=== PATIENT | female | born 1925 | race Caucasian/White ===

== ENCOUNTER 2016-04-18 13:08 | Inpatient (IN) | payer OTHER, MEDICARE ==
[~2016-04-18] VITALS: Ht 160 cm; Wt 71.0 kg
[~2016-04-18 13:08] MED LIST: AMT10 PO; ASPEC81 PO; ATOR10TA88 PO; AZIT250T PO; MELO7.5T5 PO; MULT-506 PO; SYN75 PO; TORS10TA14 PO; XNX25 PO
[2016-04-18] MEDS ORDERED: FURO-85 PO (13:22)
[2016-04-18] MEDS ORDERED: ASCA500 PO (13:25)
[2016-04-18] MEDS ORDERED: MEMA1CAP3 PO (13:25)
[2016-04-18] MEDS ORDERED: RMR15 PO (13:27)
[2016-04-18] MEDS ORDERED: POTA10CA28 PO (13:29)
[2016-04-18 14:24] LABS: BASO % 0.1 %; BASO ABS # 0.01 K/uL (0-0.2); COMPLETE YES; EOS % 0.9 %; HEMATOCRIT 36.4 % (37-47); IG% 0.1 %; LYMPH ABS # 1.01 K/uL (1.2-3.4); MEAN CELL VOLUME 91.7 fL (80-100); MEAN CORPUSCULAR HEMOGLOBIN 31.2 pg (25-34); MEAN CORPUSCULAR HGB CONC 34.1 g/dl (32-36); MEAN PLATELET VOLUME 9.7 fL (7.4-10.4); NEUT % 73.9 %; PLATELET COUNT 207 K/uL (130-400); RED BLOOD COUNT 3.97 M/uL (4.2-5.4); WHITE BLOOD COUNT 6.72 K/uL (4.8-10.8)
--- NOTE | 2016-04-18 14:29 | DIAGNOSTIC IMAGING REPORT ---
CHEST ONE VIEW PORTABLE HISTORY: EVALUATE RESPIRATORY DISTRESS.DYSPNEA COMPARISON: Chest 11/16/2013. FINDINGS: No pneumothorax. 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 The heart is mildly enlarged. Poststernotomy changes and cardiac valve prostheses are again noted. Prior cholecystectomy. Slight prominence of interstitial markings. Left basilar linear densities persist and favor subsegmental atelectasis or scarring. No new focal lung consolidations. Old, healed left-sided rib fractures. IMPRESSION: Slightly prominence of the interstitial markings which may represent developing pulmonary edema. Stable cardiomegaly. Electronically signed by: Dhruv Crocker M.D. 04/18/2016 2:28 PM Dictated Date/Time: 04/18/2016 2:25 PM
[2016-04-18 14:44] LABS: URINE APPEARANCE CLEAR (CLEAR); URINE BILIRUBIN NEG (NEG); URINE COLOR YELLOW; URINE EPITHELIAL CELL AUTO >30 /lpf (0-5); URINE NITRITE NEG (NEG); URINE PH 7.5 (4.5-7.5); URINE SPECIFIC GRAVITY 1.002 (1.000-1.030); UROBILINOGEN NEG (NEG)
[2016-04-18] MEDS ORDERED: NITROGLYCERIN OINT 2% 1GM PACKET EXT ONE ×2 (15:00→15:45)
[2016-04-18 15:03] LABS: MANUAL MICROSCOPIC REQUIRED? NO; REVIEW REQ? NO
[2016-04-18 15:14] LABS: ALB/GLOB RATIO 0.9 (0.9-2); ALKALINE PHOSPHATASE 108 U/L (45-117); ALT/SGPT 25 U/L (12-78); BLOOD UREA NITROGEN 13 mg/dl (7-18); BUN/CREATININE RATIO 13.9 (10-20); CALCIUM 8.9 mg/dl (8.5-10.1); CHLORIDE 99 mmol/L (98-107); CREATININE 0.93 mg/dl (0.60-1.20)
[2016-04-18 15:15] LABS: GLUCOSE 109 mg/dl (70-99)
[2016-04-18 15:16] LABS: CARBON DIOXIDE 28 mmol/L (21-32); SODIUM 135 mmol/L (136-145)
[2016-04-18 15:24] LABS: POTASSIUM 4.3 mmol/L (3.5-5.1)
[2016-04-18 15:34] LABS: AST/SGOT 27 U/L (15-37)
[2016-04-18 15:35] LABS: CKMB/CK RATIO 2.9 (0-3.0)
[2016-04-18] MEDS ORDERED: FUROSEMIDE 40 MG/4 ML VIAL IV STA (15:41)
[2016-04-18] MEDS ORDERED: CEFTRIAXONE SOD INJ 1 GM ADDVIAL IV STA (15:41)
--- NOTE | 2016-04-18 16:46 | History and Physical ---
History & Physical Date & Time of Service: Apr 18, 2016 at 16:31 Chief Complaint: SOB Primary Care Physician: Geraldo Rick M.D. History of Present Illness Source: patient Lupe Santana (prefers to be called Peg) presented to the ED today with shortness of breath. She lives at the [facility] and reports she was walking down the [place] to check her blood pressure, and felt short of breath on the walk over. Her BP was elevated and was 168/80 with HR 100 and 95% saturations in the morning, and she called her son, who said she should come to the hospital. She denied any chest pain or other symptoms. She reports she hasn't eaten much today but has been passing urine frequently. She denies any dysuria, or frequency prior to coming into hospital. She reports she takes Ibuprofen for diffuse arthritis, but at her last PCP visit in March she cut down her Ibuprofen amount - 2 tabs at 8am, 1 at noon, 1 at supper, and 2 at 10pm. When she was on a diuretic daily she was nauseated and felt unwell so stopped it after 2 days. She reports she eats her own breakfast and lunch, and then has dinner at the [facility]. Reports she avoids too many fruits / vegetables as they cause diarrhea. An example of her diet includes: orange juice, banana, shredded wheat cereal for breakfast, vanilla pudding, milk with protein inside to help swallow her medications, small pieces of chicken on a roll for dinner, strawberry ice cream for dessert. Since arrival in the ED, she's received Lasix 20mg IV, and a dose of Rocephin for UTI. She reports anytime her blood pressure is taken she has to pass urine. 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 PSHx: - Bovine aortic valve replacement - Appendectomy - Cholecystectomy Family History Omitted secondary to age Mother had TB and at a young age, Father healthy during life but Social History Smoking Status: Never Smoker Drug Use: none Marital Status: single Housing status: skilled nursing Occupational Status: retired Immunizations History of Influenza Vaccine: Yes Influenza Vaccine Date: Dec 13, 2010 History of Tetanus Vaccine?: Unknown History of Pneumococcal: Yes Pneumococcal Date: Dec 13, 2010 History of Hepatitis B Vaccine: Unknown Multi-Drug Resistant Organisms History of MDRO: No Allergies Coded Allergies: Penicillins (Verified Allergy, Intermediate, RXN = RASH, NO SOB, NO EDEMA PER PATIENT REPORT, 04/18/16) Sulfa Antibiotics (Verified Allergy, Intermediate, RXN = RASH, NO SOB, NO EDEMA PER PATIENT REPORT, 04/18/16) Erythromycin (Verified Allergy, Mild, unknown, 04/18/16) Lidocaine (Verified Allergy, Mild, 04/18/16) Tetracyclines (Verified Allergy, Mild, 04/18/16) Zinc (Verified Allergy, Mild, MADE JAW SORE WITH PASTE FOR DENTURES, ) Morphine (Verified Adverse Reaction, Unknown, SENSITIVE TO MEDICATION, 04/18) Home Medications Scheduled Ascorbic Acid (Vitamin C), 1 TAB PO DAILY Aspirin Enteric Coated (Ecotrin Or Generic *), 81 MG PO DAILY Atorvastatin (Lipitor), 10 MG PO DAILY Calcium Carbonate-Vitamin D (Calcium), 1 TAB PO DAILY Clindamycin Hcl (Cleocin), 300 MG PO UD Gabapentin (Neurontin), 300 MG PO HS Ibuprofen (Advil), 200 MG PO PRN Levothyroxine (Synthroid *), 0.075 MG PO DAILY Memantine Hcl (Namenda Xr), 14 MG PO DAILY Metoprolol Succinate (Toprol Xl), 25 MG PO DAILY Mirtazapine (Mirtazapine), 15 MG PO HS Multivitamin (Multivitamin), 1 TABLET PO DAILY Omeprazole (Prilosec), 40 MG PO DAILY Potassium Chloride (Micro-K Ext Rel), 10 MEQ PO DAILY Review of Systems See HPI for pertinent positives & negatives. A total of 10 systems reviewed and were otherwise negative. Physical Exam Vital Signs Date Time Temp Pulse Resp B/P Pulse Ox O2 Delivery O2 Flow Rate FiO2 04/18/16 15:07 97 26 198/102 93 Room Air 04/18/16 14:27 94 Room Air 04/18/16 13:55 182/112 04/18/16 13:19 83 04/18/16 13:12 96 Room Air 04/18/16 13:12 36.4 92 24 197/122 96 Room Air General Appearance: WD/WN, no apparent distress Head: normocephalic, atraumatic Eyes: normal inspection, PERRL Neck: supple, no JVD Respiratory/Chest: + decreased breath sounds (crackles bilaterally at bases) Cardiovascular: regular rate, rhythm, + gallop/S4 Abdomen/GI: normal bowel sounds, non tender, soft, + distended Back: no CVA tenderness Extremities/Musculoskelatal: + pedal edema (+2 pedal edema. Calves nontender.) Neurologic/Psych: alert, normal mood/affect, oriented x 3 Skin: no rash Diagnostics Laboratory Results Results Past 24 Hours Test 04/18/16 13:55 04/18/16 14:10 Range/Units White Blood Count 6.72 4.8-10.8 K/uL Red Blood Count 3.97 4.2-5.4 M/uL Hemoglobin 12.4 12.0-16.0 g/dL Hematocrit 36.4 37-47 % Mean Corpuscular Volume 91.7 80-100 fL Mean Corpuscular Hemoglobin 31.2 25-34 pg Mean Corpuscular Hemoglobin Concent 34.1 32-36 g/dl Platelet Count 207 130-400 K/uL Mean Platelet Volume 9.7 7.4-10.4 fL Neutrophils (%) (Auto) 73.9 % Lymphocytes (%) (Auto) 15.0 % Monocytes (%) (Auto) 10.0 % Eosinophils (%) (Auto) 0.9 % Basophils (%) (Auto) 0.1 % Neutrophils # (Auto) 4.96 1.4-6.5 K/uL Lymphocytes # (Auto) 1.01 1.2-3.4 K/uL Monocytes # (Auto) 0.67 0.11-0.59 K/uL Eosinophils # (Auto) 0.06 0-0.5 K/uL Basophils # (Auto) 0.01 0-0.2 K/uL RDW Standard Deviation 44.3 36.4-46.3 fL RDW Coefficient of Variation 13.2 11.5-14.5 % Immature Granulocyte % (Auto) 0.1 % Immature Granulocyte # (Auto) 0.01 0.00-0.02 K/uL Sodium Level 135 136-145 mmol/L Potassium Level 4.3 3.5-5.1 mmol/L Chloride Level 99 98-107 mmol/L Carbon Dioxide Level 28 21-32 mmol/L Anion Gap 8.0 3-11 mmol/L Blood Urea Nitrogen 13 7-18 mg/dl Creatinine 0.93 0.60-1.20 mg/dl Est Creatinine Clear Calc Drug Dose 40.0 ml/min Estimated GFR () 63.6 Estimated GFR (Non- 54.9 BUN/Creatinine Ratio 13.9 10-20 Random Glucose 109 70-99 mg/dl Calcium Level 8.9 8.5-10.1 mg/dl Total Bilirubin 0.5 0.2-1 mg/dl Aspartate Amino Transf (AST/SGOT) 27 15-37 U/L Alanine Aminotransferase (ALT/SGPT) 25 12-78 U/L Alkaline Phosphatase 108 45-117 U/L Total Creatine Kinase 45 26-192 U/L Creatine Kinase MB 1.3 0.5-3.6 ng/ml Creatine Kinase MB Ratio 2.9 0-3.0 Troponin I < 0.015 0-0.045 ng/ml Pro-B-Type Natriuretic Peptide 1727 0-1800 pg/ml Total Protein 7.2 6.4-8.2 gm/dl Albumin 3.4 3.4-5.0 gm/dl Globulin 3.8 2.5-4.0 gm/dl Albumin/Globulin Ratio 0.9 0.9-2 Urine Color YELLOW Urine Appearance CLEAR CLEAR Urine pH 7.5 4.5-7.5 Urine Specific [place] 1.002 1.000-1.030 Urine Protein NEG NEG Urine Glucose (UA) NEG NEG Urine Ketones NEG NEG Urine Occult Blood NEG NEG Urine Nitrite NEG NEG Urine Bilirubin NEG NEG Urine Urobilinogen NEG NEG Urine Leukocyte Esterase MODERATE NEG Urine WBC (Auto) 10-30 0-5 /hpf Urine RBC (Auto) 0-4 0-4 /hpf Urine Hyaline Casts (Auto) 0 0-5 /lpf Urine Epithelial Cells (Auto) >30 0-5 /lpf Urine Bacteria (Auto) 1+ NEG Microbiology Results 04/18/16 Urine Culture, Received Pending Diagnostic Radiology [~ rep ct add3]] CHEST ONE VIEW PORTABLE HISTORY: EVALUATE RESPIRATORY DISTRESS.DYSPNEA COMPARISON: Chest 11/16/2013. FINDINGS: No pneumothorax. 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 The heart is mildly enlarged. Poststernotomy changes and cardiac valve prostheses are again noted. Prior cholecystectomy. Slight prominence of interstitial markings. Left basilar linear densities persist and favor subsegmental atelectasis or scarring. No new focal lung consolidations. Old, healed left-sided rib fractures. IMPRESSION: Slightly prominence of the interstitial markings which may represent developing pulmonary edema. Stable cardiomegaly. Electronically signed by: Dhruv Crocker M.D. 04/18/2016 2:28 PM Dictated Date/Time: 04/18/2016 2:25 PM Normal EKG (HR 95, no ST elevation) Impression Assessment and Plan 89 yo F, with history of hypertension, aortic valve replacement (pig valve, in 2005), who presents with shortness of breath - likely CHF exacerbation. Differential of triggers for exacerbation include ischemia, arrhythmia, diet related, chronic ibuprofen use, chronic hypertension, valvular issue. Plan Acute on chronic CHF exacerbation - Echocardiogram - Coon - Received 20mg IV Lasix so far - Strict I&O monitoring - Daily weights - CXR in AM - Low salt diet Hypertension - Continue Toprol XL 25mg daily - Will start Lisinopril 20mg today - PRN Lopressor 5mg IV q6h SBP > 180 or DBP > 110 Depression - Continue Mirtazapine 15mg qHS CODE STATUS: DNR VTE: Heparin q8h Dispo: Resident Physician Supervision Note: I interviewed and examined the patient. Discussed with Dr. Johnson and agree with findings and plan as documented in the note. Any exceptions or clarifications are listed here: The patient has had prompt diuresis since Lasix administration, however, she has been incontinent thus nursing has not been able to quantify. Agree with plan as noted above. 20 mg IV in this Lasix naive patient was appropriate, and given response, would hold off on additional dose until we re-asses in AM. Documented By: Sekou Haskins Resident Tracking Resident Involvement: Resident Care Provided Care Provided: Adult Hospital Medicine
--- NOTE | 2016-04-18 17:11 | Medical Student: [facility] ---
Med Student History & Physical Date & Time of Service: Apr 18, 2016 at 17:04 Chief Complaint: SOB Primary Care Physician: Geraldo Rick M.D. History of Present Illness Source: patient, clinic records, hospital records Pt is an 89 yo female with a history of HTN that presented today following an episode of dyspnea on exertion with an associated elevated blood pressure. She notes that she was feeling fine yesterday and this morning until she began walking around and noticed that she was short of breath. She stopped into the nurses station at [facility] to have her BP checked and it was noted to be 168/80 , which concerned her. She is currently taking and was previously tried leeann dieuretic by her PCP but she noted dizziness and nausea that caused her to stop taking it. She denies associated sxs such as fever, cough, nasal congestion Past Medical/Surgical History Medical Problems: (1) Clostridium difficile diarrhea Status: Acute HTN PSH Cholecystectomy Appendectomy Tonsillectomy Aortic Valve replacement Family History Non contributory or unknown Social History Smoking Status: Never Smoker Drug Use: none Marital Status: single Housing status: fpc Occupational Status: retired Immunizations History of Influenza Vaccine: Yes Influenza Vaccine Date: Dec 13, 2010 History of Tetanus Vaccine?: Unknown History of Pneumococcal: Yes Pneumococcal Date: Dec 13, 2010 History of Hepatitis B Vaccine: Unknown Allergies Coded Allergies: Penicillins (Verified Allergy, Intermediate, RXN = RASH, NO SOB, NO EDEMA PER PATIENT REPORT, 04/18/16) Sulfa Antibiotics (Verified Allergy, Intermediate, RXN = RASH, NO SOB, NO EDEMA PER PATIENT REPORT, 04/18/16) Erythromycin (Verified Allergy, Mild, unknown, 04/18/16) Lidocaine (Verified Allergy, Mild, 04/18/16) Tetracyclines (Verified Allergy, Mild, 04/18/16) Zinc (Verified Allergy, Mild, MADE JAW SORE WITH PASTE FOR DENTURES, ) Morphine (Verified Adverse Reaction, Unknown, SENSITIVE TO MEDICATION, 04/18) Medications Ascorbic Acid (Vitamin C), 1 TAB PO DAILY Aspirin Enteric Coated (Ecotrin Or Generic *), 81 MG PO DAILY Atorvastatin (Lipitor), 10 MG PO DAILY Calcium Carbonate-Vitamin D (Calcium), 1 TAB PO DAILY Clindamycin Hcl (Cleocin), 300 MG PO UD Gabapentin (Neurontin), 300 MG PO HS Ibuprofen (Advil), 200 MG PO PRN Levothyroxine (Synthroid *), 0.075 MG PO DAILY Memantine Hcl (Namenda Xr), 14 MG PO DAILY Metoprolol Succinate (Toprol Xl), 25 MG PO DAILY Mirtazapine (Mirtazapine), 15 MG PO HS Multivitamin (Multivitamin), 1 TABLET PO DAILY Omeprazole (Prilosec), 40 MG PO DAILY Potassium Chloride (Micro-K Ext Rel), 10 MEQ PO DAILY Review of Systems Constitutional: No chills, No fever, No weakness, No weight loss ENT: No hearing loss Respiratory: + dyspnea on exertion, + shortness of breath, No cough, No wheezing Cardiovascular: No chest pain, No palpitations Abdomen: No constipation, No diarrhea, No nausea, No pain, No vomiting Musculoskeletal: + joint pain Genitourinary - Female: No dysuria, No urinary frequency Hematologic / Lymphatic: No abnormal bleeding/bruising Integumentary: No itch, No rash Physical Exam Vital Signs (24 Hours) Date Time Temp Pulse Resp B/P Pulse Ox O2 Delivery O2 Flow Rate FiO2 04/18/16 15:07 97 26 198/102 93 Room Air 04/18/16 14:27 94 Room Air 04/18/16 13:55 182/112 04/18/16 13:19 83 04/18/16 13:12 96 Room Air 04/18/16 13:12 36.4 92 24 197/122 96 Room Air General Appearance: WD/WN, no apparent distress Head: normocephalic, atraumatic Eyes: PERRL, EOMI ENT: hearing grossly normal Neck: supple, no adenopathy, thyroid normal Respiratory/Chest: no respiratory distress, no accessory muscle use, + decreased breath sounds Cardiovascular: regular rate, rhythm, no murmur Abdomen/GI: non tender, soft Extremities/Musculoskelatal: + pedal edema, + swelling Neurologic/Psych: alert, normal mood/affect, oriented x 3 Skin: normal color, warm/dry, no rash Diagnostics Laboratory Results Results Past 24 Hours Test 04/18/16 13:55 04/18/16 14:10 Range/Units White Blood Count 6.72 4.8-10.8 K/uL Red Blood Count 3.97 4.2-5.4 M/uL Hemoglobin 12.4 12.0-16.0 g/dL Hematocrit 36.4 37-47 % Mean Corpuscular Volume 91.7 80-100 fL Mean Corpuscular Hemoglobin 31.2 25-34 pg Mean Corpuscular Hemoglobin Concent 34.1 32-36 g/dl Platelet Count 207 130-400 K/uL Mean Platelet Volume 9.7 7.4-10.4 fL Neutrophils (%) (Auto) 73.9 % Lymphocytes (%) (Auto) 15.0 % Monocytes (%) (Auto) 10.0 % Eosinophils (%) (Auto) 0.9 % Basophils (%) (Auto) 0.1 % Neutrophils # (Auto) 4.96 1.4-6.5 K/uL Lymphocytes # (Auto) 1.01 1.2-3.4 K/uL Monocytes # (Auto) 0.67 0.11-0.59 K/uL Eosinophils # (Auto) 0.06 0-0.5 K/uL Basophils # (Auto) 0.01 0-0.2 K/uL RDW Standard Deviation 44.3 36.4-46.3 fL RDW Coefficient of Variation 13.2 11.5-14.5 % Immature Granulocyte % (Auto) 0.1 % Immature Granulocyte # (Auto) 0.01 0.00-0.02 K/uL Sodium Level 135 136-145 mmol/L Potassium Level 4.3 3.5-5.1 mmol/L Chloride Level 99 98-107 mmol/L Carbon Dioxide Level 28 21-32 mmol/L Anion Gap 8.0 3-11 mmol/L Blood Urea Nitrogen 13 7-18 mg/dl Creatinine 0.93 0.60-1.20 mg/dl Est Creatinine Clear Calc Drug Dose 40.0 ml/min Estimated GFR () 63.6 Estimated GFR (Non- 54.9 BUN/Creatinine Ratio 13.9 10-20 Random Glucose 109 70-99 mg/dl Calcium Level 8.9 8.5-10.1 mg/dl Total Bilirubin 0.5 0.2-1 mg/dl Aspartate Amino Transf (AST/SGOT) 27 15-37 U/L Alanine Aminotransferase (ALT/SGPT) 25 12-78 U/L Alkaline Phosphatase 108 45-117 U/L Total Creatine Kinase 45 26-192 U/L Creatine Kinase MB 1.3 0.5-3.6 ng/ml Creatine Kinase MB Ratio 2.9 0-3.0 Troponin I < 0.015 0-0.045 ng/ml Pro-B-Type Natriuretic Peptide 1727 0-1800 pg/ml Total Protein 7.2 6.4-8.2 gm/dl Albumin 3.4 3.4-5.0 gm/dl Globulin 3.8 2.5-4.0 gm/dl Albumin/Globulin Ratio 0.9 0.9-2 Urine Color YELLOW Urine Appearance CLEAR CLEAR Urine pH 7.5 4.5-7.5 Urine Specific [place] 1.002 1.000-1.030 Urine Protein NEG NEG Urine Glucose (UA) NEG NEG Urine Ketones NEG NEG Urine Occult Blood NEG NEG Urine Nitrite NEG NEG Urine Bilirubin NEG NEG Urine Urobilinogen NEG NEG Urine Leukocyte Esterase MODERATE NEG Urine WBC (Auto) 10-30 0-5 /hpf Urine RBC (Auto) 0-4 0-4 /hpf Urine Hyaline Casts (Auto) 0 0-5 /lpf Urine Epithelial Cells (Auto) >30 0-5 /lpf Urine Bacteria (Auto) 1+ NEG Microbiology Results 04/18/16 Urine Culture, Received Pending Diagnostic Radiology CHEST ONE VIEW PORTABLE HISTORY: EVALUATE RESPIRATORY DISTRESS.DYSPNEA COMPARISON: Chest 11/16/2013. FINDINGS: No pneumothorax. 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 The heart is mildly enlarged. Poststernotomy changes and cardiac valve prostheses are again noted. Prior cholecystectomy. Slight prominence of interstitial markings. Left basilar linear densities persist and favor subsegmental atelectasis or scarring. No new focal lung consolidations. Old, healed left-sided rib fractures. IMPRESSION: Slightly prominence of the interstitial markings which may represent developing pulmonary edema. Stable cardiomegaly. Electronically signed by: Dhruv Crocker M.D. 04/18/2016 2:28 PM Dictated Date/Time: 04/18/2016 2:25 PM Impression Assessment and Plan Pt is a 89 year old female with a history of HTN and aortic valve replacement ( porcine) that presented to the ED with dyspnea on exertion and high BP 198/102. She was found to have some pulmonary edema and lower extremity swelling likely secondary to CHF. Potential causes for the CHF exacerbation include diet, ischemia, medication induced, Plan: CHF exacerbation * Continue Lasix 20 mg IV * Echocardiogram * EKG * repeat CXR in the morning * low salt diet Hypertensive Urgency * Continue Toperol XL 25 mg daily * Add Lisinopril 20 mg Admit to Telemetry VTE prophylaxis - Heparin subq DNR Level of Care Telemetry Advanced Directives Existing Living Will: Yes Resuscitation Status DO NOT RESUSCITATE DVT Prophylaxis enoxaparin (Lovenox) SQ
[2016-04-18] MEDS ORDERED: ALUMINUM/MAGNESIUM/SIMETH (MAALOX MAX) 30 ML UDC PO PRN (17:15)
[2016-04-18] MEDS ORDERED: ONDANSETRON INJ 2 MG/ML 2 ML VIAL IV PRN (17:15)
[2016-04-18] MEDS ORDERED: POLYETHYLENE (MIRALAX) 17 GM PACK PO PRN (17:15)
[2016-04-18] MEDS ORDERED: MAGNESIUM HYDROXIDE SUSP 30 ML UDC PO PRN (17:15)
[2016-04-18] MEDS ORDERED: LISINOPRIL 20 MG TAB PO ONE (17:28)
[2016-04-18] MEDS ORDERED: METOPROLOL TARTRATE 1 MG/ML VIAL IV PRN (17:30)
[2016-04-18 18:22] LABS: INR 1.1 (0.9-1.1); PROTHROMBIN TIME (PATIENT) 11.4 SECONDS (9.0-12.0)
[2016-04-18] MEDS ORDERED: GABA-113 PO (20:38)
[2016-04-18] MEDS: ACETAMINOPHEN 325 MG TAB PO PRN ×2 (21:27→23:31)
[2016-04-18] MEDS: MIRTAZAPINE TAB 15 MG TAB PO SCH (21:28)
[2016-04-18] MEDS: GABAPENTIN 300 MG CAP PO SCH (21:28)
[2016-04-18] MEDS ORDERED: CLIN300C2 PO (21:38)
[2016-04-18] MEDS ORDERED: IBUP-1277 PO (21:38)
[2016-04-18] MEDS ORDERED: CALC-51 PO (21:39)
[2016-04-18] MEDS ORDERED: OMEP40CA41 PO (21:40)
--- NOTE | 2016-04-18 22:29 | EMERGENCY ROOM VISIT NOTE ---
History Report prepared by Haider: Daily Minaya Under the Supervision of: Dr. Kd Noriega M.D. First contact with patient: 13:37 Chief Complaint: SHORTNESS OF BREATH Stated Complaint: SOB Nursing Triage Summary: arrived ALS from [place] assisted [facility]; had BP checked, while walking after had sudden onset of SOB, denies CP. History of Present Illness The patient is an 89 year old female who presents to the Emergency Room with complaints of persistent shortness of breath that began prior to arrival. The patient states that she is a resident at the [place] and states that she went to have her blood pressure checked this morning routinely. She states that while she was on her way to have her blood pressure checked, she suddenly became short of breath. The patient states that she has to walk a far distance to have her blood pressure checked. She states that her blood pressure was 168/80 mmHg, her heart rate was 100 beats per minute and her oxygen saturation was 95% . The patient states that her blood pressure normally runs 120/80 mmHg. She denies ever having this happen to her in the past. The patient states that exertion worsens her symptoms and rest alleviates her symptoms. The patient states that she feels that her abdomen is distended. She additionally states that she was previously on Lasix for her fluid build up. The patient notes a history of an aortic valve replacement in 2005. Pt denies LOC, headache, fevers , chills, diaphoresis, visual changes, neck pain, chest pain, nausea, vomiting, abdominal pain, back pain, melena, hematochezia, urinary symptoms, numbness, weakness, lymphadenopathy, rash, or other complaints. Source of History: patient Onset: prior to arrival Position: other (global) Quality: other (shortness of breath) Timing: other (persistent) Modifying Factors (Worsening): exertion Modifying Factors (Relieving): rest Note: Associated Symptoms: increased blood pressure. Review of Systems See HPI for pertinent positives and negatives. A total of ten systems were reviewed and were otherwise negative. 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 Family History Omitted secondary to age Social History Smoking Status: Never Smoker Alcohol Use: none Drug Use: none Marital Status: single Housing Status: lives with family Occupation Status: retired Current/Historical Medications Scheduled Ascorbic Acid (Vitamin C), 1 TAB PO DAILY Aspirin Enteric Coated (Ecotrin Or Generic *), 81 MG PO DAILY Atorvastatin (Lipitor), 10 MG PO DAILY Calcium Carbonate-Vitamin D (Calcium), 1 TAB PO DAILY Clindamycin Hcl (Cleocin), 300 MG PO UD Gabapentin (Neurontin), 300 MG PO HS Ibuprofen (Advil), 200 MG PO PRN Levothyroxine (Synthroid *), 0.075 MG PO DAILY Memantine Hcl (Namenda Xr), 14 MG PO DAILY Metoprolol Succinate (Toprol Xl), 25 MG PO DAILY Mirtazapine (Mirtazapine), 15 MG PO HS Multivitamin (Multivitamin), 1 TABLET PO DAILY Omeprazole (Prilosec), 40 MG PO DAILY Potassium Chloride (Micro-K Ext Rel), 10 MEQ PO DAILY Allergies Coded Allergies: Penicillins (Verified Allergy, Intermediate, RXN = RASH, NO SOB, NO EDEMA PER PATIENT REPORT, 04/18/16) Sulfa Antibiotics (Verified Allergy, Intermediate, RXN = RASH, NO SOB, NO EDEMA PER PATIENT REPORT, 04/18/16) Erythromycin (Verified Allergy, Mild, unknown, 04/18/16) Lidocaine (Verified Allergy, Mild, 04/18/16) Tetracyclines (Verified Allergy, Mild, 04/18/16) Zinc (Verified Allergy, Mild, MADE JAW SORE WITH PASTE FOR DENTURES, ) Morphine (Verified Adverse Reaction, Unknown, SENSITIVE TO MEDICATION, 04/18) Physical Exam Vital Signs Date Time Temp Pulse Resp B/P Pulse Ox O2 Delivery O2 Flow Rate FiO2 04/18/16 15:07 97 26 198/102 93 Room Air 04/18/16 14:27 94 Room Air 04/18/16 13:55 182/112 04/18/16 13:19 83 04/18/16 13:12 96 Room Air 04/18/16 13:12 36.4 92 24 197/122 96 Room Air Physical Exam GENERAL: Mildly dyspneic appearing. Awake, alert, well-appearing, in no distress HENT: Normocephalic, atraumatic. Oropharynx unremarkable. EYES: Normal conjunctiva. Sclera non-icteric. NECK: Supple. No nuchal rigidity. FROM. Mild JVD. RESPIRATORY: Mild tachypnea. Clear to auscultation. CARDIAC: Regular rate, normal rhythm. Extremities warm and well perfused. Pulses equal. ABDOMEN: Soft, non-distended. No tenderness to palpation. No rebound or guarding. No masses. RECTAL: Deferred. MUSCULOSKELETAL: Chest examination reveals no tenderness. The back is symmetrical on inspection without obvious abnormality. There is no CVA tenderness to palpation. 2+ lower extremity joint edema. LOWER EXTREMITIES: Calves are equal size bilaterally and non-tender. edema. No discoloration. NEURO: Normal sensorium. No sensory or motor deficits noted. SKIN: No rash or jaundice noted. Medical Decision & Procedures ER Provider Diagnostic Interpretation: X-ray: Per my interpretation, radiologist review. CHEST ONE VIEW PORTABLE HISTORY: EVALUATE RESPIRATORY DISTRESS.DYSPNEA COMPARISON: Chest 11/16/2013. FINDINGS: No pneumothorax. 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 The heart is mildly enlarged. Poststernotomy changes and cardiac valve prostheses are again noted. Prior cholecystectomy. Slight prominence of interstitial markings. Left basilar linear densities persist and favor subsegmental atelectasis or scarring. No new focal lung consolidations. Old, healed left-sided rib fractures. IMPRESSION: Slightly prominence of the interstitial markings which may represent developing pulmonary edema. Stable cardiomegaly. Electronically signed by: Dhruv Crocker M.D. 04/18/2016 2:28 PM Dictated Date/Time: 04/18/2016 2:25 PM Laboratory Results 04/18/16 13:55 Red Blood Count 3.97, Mean Corpuscular Volume 91.7, Mean Corpuscular Hemoglobin 31.2, Mean Corpuscular Hemoglobin Concent 34.1, Mean Platelet Volume 9.7, Neutrophils (%) (Auto) 73.9, Lymphocytes (%) (Auto) 15.0, Monocytes (%) (Auto) 10.0, Eosinophils (%) (Auto) 0.9, Basophils (%) (Auto) 0.1, Neutrophils # (Auto ) 4.96, Lymphocytes # (Auto) 1.01, Monocytes # (Auto) 0.67, Eosinophils # (Auto ) 0.06, Basophils # (Auto) 0.01 1/5/17 13:55 Test 04/18/16 13:55 04/18/16 14:10 White Blood Count 6.72 K/uL (4.8-10.8) Red Blood Count 3.97 M/uL (4.2-5.4) Hemoglobin 12.4 g/dL (12.0-16.0) Hematocrit 36.4 % (37-47) Mean Corpuscular Volume 91.7 fL (80-100) Mean Corpuscular Hemoglobin 31.2 pg (25-34) Mean Corpuscular Hemoglobin Concent 34.1 g/dl (32-36) Platelet Count 207 K/uL (130-400) Mean Platelet Volume 9.7 fL (7.4-10.4) Neutrophils (%) (Auto) 73.9 % Lymphocytes (%) (Auto) 15.0 % Monocytes (%) (Auto) 10.0 % Eosinophils (%) (Auto) 0.9 % Basophils (%) (Auto) 0.1 % Neutrophils # (Auto) 4.96 K/uL (1.4-6.5) Lymphocytes # (Auto) 1.01 K/uL (1.2-3.4) Monocytes # (Auto) 0.67 K/uL (0.11-0.59) Eosinophils # (Auto) 0.06 K/uL (0-0.5) Basophils # (Auto) 0.01 K/uL (0-0.2) RDW Standard Deviation 44.3 fL (36.4-46.3) RDW Coefficient of Variation 13.2 % (11.5-14.5) Immature Granulocyte % (Auto) 0.1 % Immature Granulocyte # (Auto) 0.01 K/uL (0.00-0.02) Prothrombin Time 11.4 SECONDS (9.0-12.0) Prothromb Time International Ratio 1.1 (0.9-1.1) Anion Gap 8.0 mmol/L (3-11) Est Creatinine Clear Calc Drug Dose 40.0 ml/min Estimated GFR () 63.6 Estimated GFR (Non- 54.9 BUN/Creatinine Ratio 13.9 (10-20) Calcium Level 8.9 mg/dl (8.5-10.1) Total Bilirubin 0.5 mg/dl (0.2-1) Aspartate Amino Transf (AST/SGOT) 27 U/L (15-37) Alanine Aminotransferase (ALT/SGPT) 25 U/L (12-78) Alkaline Phosphatase 108 U/L (45-117) Total Creatine Kinase 45 U/L (26-192) Creatine Kinase MB 1.3 ng/ml (0.5-3.6) Creatine Kinase MB Ratio 2.9 (0-3.0) Troponin I < 0.015 ng/ml (0-0.045) Pro-B-Type Natriuretic Peptide 1727 pg/ml (0-1800) Total Protein 7.2 gm/dl (6.4-8.2) Albumin 3.4 gm/dl (3.4-5.0) Globulin 3.8 gm/dl (2.5-4.0) Albumin/Globulin Ratio 0.9 (0.9-2) Urine Color YELLOW Urine Appearance CLEAR (CLEAR) Urine pH 7.5 (4.5-7.5) Urine Specific [place] 1.002 (1.000-1.030) Urine Protein NEG (NEG) Urine Glucose (UA) NEG (NEG) Urine Ketones NEG (NEG) Urine Occult Blood NEG (NEG) Urine Nitrite NEG (NEG) Urine Bilirubin NEG (NEG) Urine Urobilinogen NEG (NEG) Urine Leukocyte Esterase MODERATE (NEG) Urine WBC (Auto) 10-30 /hpf (0-5) Urine RBC (Auto) 0-4 /hpf (0-4) Urine Hyaline Casts (Auto) 0 /lpf (0-5) Urine Epithelial Cells (Auto) >30 /lpf (0-5) Urine Bacteria (Auto) 1+ (NEG) Laboratory results reviewed by me Medications Administered Medications (Trade) Dose Ordered Sig/Sapphire Route Start Time Stop Time Status Last Admin Dose Admin Nitroglycerin (Nitroglycerin 2% Oint) 0.5 inch NOW ONCE EXT 04/18/16 15:00 04/18/16 15:43 DC 04/18/16 15:07 0.5 INCH Nitroglycerin (Nitroglycerin 2% Oint) 1 inch NOW ONCE EXT 04/18/16 15:45 04/18/16 15:46 DC 04/18/16 15:56 1 INCH Ceftriaxone Sodium (Rocephin Inj) 1 gm NOW STAT IV 04/18/16 15:41 04/18/16 15:43 DC 04/18/16 15:56 1 GM Furosemide (Lasix Inj) 20 mg NOW STAT IV 04/18/16 15:41 04/18/16 15:43 DC 04/18/16 15:55 20 MG ECG Indication: SOB/dyspnea Rate (beats per minute): 95 Rhythm: sinus rhythm Findings: PAC, Q waves (Septal), no acute ischemic change ED Course 1338: The patient was evaluated in room C12B. A complete history and physical exam was performed. 1500: Ordered Nitroglycerin 0.5 inch EXT. 1519: I reevaluated the patient and she is resting comfortably. The patient is complaining of more urinary urgency today. 1541: Ordered Lasix Inj 20 mg IV, Rocephin Inj 1 gm IV. 1545: Ordered Nitroglycerin 1 inch EXT. 1548: I reevaluated the patient and she is resting comfortably. I discussed the exam findings with her and I discussed the treatment plan. She verbalized complete understanding and agreement. She is going to be evaluated for further treatment. She would like me to talk to her son regarding her symptoms. 1555: I discussed the patient's case with the patient's son. He agrees with the treatment plan. 1608: I discussed the patient's [place] [facility] [place] going to evaluate the patient for further treatment. Medical Decision Triage Nursing notes reviewed. The patient's presentation and history were concerning for SOB. Etiologies such as pneumonia, COPD, reactive airway disease, CHF, cardiac ischemia, pulmonary embolism, pneumothorax, musculoskeletal, infections, gastrointestinal, as well as others were entertained. the patient was evaluated. Clinically there was concerns for CHF. The patient had a chest x-ray performed which revealed pulmonary edema. She also cardiomegaly. Her CBC, chemistry panel and troponin were unremarkable. The patient also had a concerning urinalysis. She noted frequency as well developing this afternoon. She had several frequent urination issues in the emergency department. The patient was given IV Rocephin. Her BNP was borderline. The patient has had significant leg swelling. I did discuss the case with her son at her request. He notes her legs have been more swollen. She had some issues tolerating oral Lasix as an outpatient. The patient was significant hypertension as well. She had nitroglycerin ointment applied. Initially one half inch tremendous was increased to 1 inch. The patient was given 20 mg of IV Lasix. I discussed further evaluation and management in the hospital. The patient and family were in agreement. Consultation was made with the hospitalist and the patient was evaluated. The chart was completed utilizing [employer] Speech voice recognition software. Grammatical errors, random word insertions, pronoun errors, and incomplete sentences are an occasional consequence of this system due to software limitations, ambient noise, and hardware issues. Any formal questions or concerns about the content, text, or information contained within the body of this dictation should be directly addressed to the physician for clarification. Consults Time Called: 1552 Consulting Physician: ZACH Velasco Returned Call: 1608 I discussed the patient's case with ZACH Velasco. He is going to evaluate the patient for further treatment. Impression Primary Impression: CHF (congestive heart failure) Additional Impressions: UTI (urinary tract infection), Hypertensive emergency Scribe Attestation The scribe's documentation has been prepared under my direction and personally reviewed by me in its entirety. I confirm that the note above accurately reflects all work, treatment, procedures, and medical decision making performed by me. Departure Information Dispostion Being Evaluated By Hospitalist Geraldo Hendrickson M.D. (PCP)
[2016-04-18] MEDS: NITROGLYCERIN OINT 2% 1GM PACKET EXT SCH (23:30)
[2016-04-18] MEDS: HEPARIN SOD 5000 UNIT/0.5 ML CARP SQ SCH (23:31)
[2016-04-18] MEDS ORDERED: METO25TA3 PO (23:39)
[2016-04-18 23:56] LABS: CKMB/CK RATIO 3.2 (0-3.0)
[2016-04-19] VITALS (9 sets, daily range): BP systolic 90–173; BP diastolic 55–84; PULSE 59–77; TEMP 36.3–36.6; O2SAT 91–96; Ht 160 cm; Wt 71.0 kg
[2016-04-19] MEDS ORDERED: TRAMADOL HCL 50 MG TAB PO STA (01:25)
[2016-04-19 05:22] LABS: BASO % 0.3 %; BASO ABS # 0.02 K/uL (0-0.2); COMPLETE YES; EOS % 0.9 %; HEMATOCRIT 36.4 % (37-47); IG% 0.1 %; LYMPH % 14.5 %; MEAN CELL VOLUME 91.7 fL (80-100); MEAN CORPUSCULAR HEMOGLOBIN 31.7 pg (25-34); MEAN CORPUSCULAR HGB CONC 34.6 g/dl (32-36); MEAN PLATELET VOLUME 9.5 fL (7.4-10.4); MONO % 13.9 %; NEUT % 70.3 %; PLATELET COUNT 210 K/uL (130-400); RED BLOOD COUNT 3.97 M/uL (4.2-5.4); WHITE BLOOD COUNT 6.91 K/uL (4.8-10.8)
[2016-04-19 06:00] LABS: ALT/SGPT 23 U/L (12-78); AST/SGOT 24 U/L (15-37); BLOOD UREA NITROGEN 16 mg/dl (7-18); BUN/CREATININE RATIO 14.8 (10-20); CALCIUM 8.7 mg/dl (8.5-10.1); CARBON DIOXIDE 29 mmol/L (21-32); CHLORIDE 98 mmol/L (98-107); GLUCOSE 106 mg/dl (70-99); POTASSIUM 3.7 mmol/L (3.5-5.1); SODIUM 135 mmol/L (136-145)
[2016-04-19] MEDS: NITROGLYCERIN OINT 2% 1GM PACKET EXT SCH ×4 (06:00→23:57)
[2016-04-19 06:05] LABS: ALKALINE PHOSPHATASE 105 U/L (45-117)
[2016-04-19] MEDS: LEVOTHYROXINE 75 MCG TAB PO SCH (06:12)
[2016-04-19] MEDS: HEPARIN SOD 5000 UNIT/0.5 ML CARP SQ SCH ×3 (06:15→21:38)
--- NOTE | 2016-04-19 07:53 | Clinical Documentation Query ---
SHARLENE Russ : CLINICAL DOCUMENTATION QUERY Patient is an 89 year old female admitted with acute on chronic CHF, not otherwise specified. Echocardiogram from 10/23 demonstrated normal biventricular systolic function. Pertinent past medical history includes aortic stenosis s/p porcine AVR in [place] at [facility] [place], SVT s/p ablation, and hypertension. She is being treated with IV Lasix, strict I/O, daily weights, low salt diet, serial chest radiographs, and repeat echocardiogram. Please specify type of CHF as able/when updated echocardiogram available. In your clinical opinion is this patient being managed for: ( ) Acute on chronic diastolic congestive heart failure ( ) Other explanation of clinical findings (Please Explain) ( X ) Unable to determine (Please Define) ( ) Need to Discuss ( ) Not Agree Investigations are ongoing The medical record reflects the following clinical findings, treatment, and risk factors. Clinical Indicators: As above Treatment:IV Lasix, strict I/O, daily weights, low salt diet, serial chest radiographs, and repeat echocardiogram Risk Factors: Age, hypertension, valvular disease, dietary indiscretions, arrhythmia. Please clarify and document your clinical opinion in the progress notes and discharge summary. Terms such as "probable", "suspected", "likely", "questionable", "possible", or "still to be ruled out" are acceptable. IF IN AGREEMENT, YOU MUST DOCUMENT ABOVE DIAGNOSTIC STATEMENT IN DAILY PROGRESS NOTES AND DISCHARGE SUMMARY. This document is not part of the patient's record. Thank You, Valdez Ortega, KALI [phone]
--- NOTE | 2016-04-19 07:54 | Clinical Documentation Query ---
BRODERICK Murphy : CLINICAL DOCUMENTATION QUERY Patient is an 89 year old female admitted with acute on chronic CHF, not otherwise specified. Echocardiogram from 10/23 demonstrated normal biventricular systolic function. Pertinent past medical history [place] [facility] [place]T s/p ablation, and hypertension. She is being treated with IV Lasix, strict I/O, daily weights, low salt diet, serial chest radiographs, and repeat echocardiogram. Please specify type of CHF as able/when updated echocardiogram available. In your clinical opinion is this patient being managed for: ( x) Acute on chronic diastolic congestive heart failure ( ) Other explanation of clinical findings (Please Explain) ( ) Unable to determine (Please Define) ( ) Need to Discuss ( ) Not Agree The medical record reflects the following clinical findings, treatment, and risk factors. Clinical Indicators: As above Treatment:IV Lasix, strict I/O, daily weights, low salt diet, serial chest radiographs, and repeat echocardiogram Risk Factors: Age, hypertension, valvular disease, dietary indiscretions, arrhythmia. Please clarify and document your clinical opinion in the progress notes and discharge summary. Terms such as "probable", "suspected", "likely", "questionable", "possible", or "still to be ruled out" are acceptable. IF IN AGREEMENT, YOU MUST DOCUMENT ABOVE DIAGNOSTIC STATEMENT IN DAILY PROGRESS NOTES AND DISCHARGE SUMMARY. This document is not part of the patient's record. Thank You, Valdez Ortega, RN [phone]
[2016-04-19] MEDS ORDERED: PERFLUTREN LIPID MICROSPHERE (DEFINITY) IV ONE (08:03)
--- NOTE | 2016-04-19 08:30 | DIAGNOSTIC IMAGING REPORT ---
CHEST 2 VIEWS ROUTINE HISTORY: Short of breath. CHF exacerbation COMPARISON: Chest 04/18/2016. 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 The lungs are hyperexpanded with apical predominant emphysematous changes. No pneumothorax. The upper lung zones are clear. The heart is mildly enlarged. Postoperative changes and cardiac valve prostheses are again noted. Mild interstitial thickening at the lung bases. No evidence for pulmonary edema. Left basilar density/effusion has slightly progressed. IMPRESSION: Slight progression of the small left basilar density/effusion. No evidence for pulmonary edema. Emphysema and cardiomegaly persist. Electronically signed by: Dhruv Crocker M.D. 04/19/2016 8:28 AM Dictated Date/Time: 04/19/2016 8:25 AM
[2016-04-19] MEDS: ASPIRIN 81 MG ECTAB PO SCH (08:44)
[2016-04-19] MEDS: ATORVASTATIN 10 MG TAB PO SCH (08:45)
[2016-04-19] MEDS: POTASSIUM CHLORIDE 10 MEQ TABCR PO SCH (08:45)
[2016-04-19] MEDS: MEMANTINE 10 MG TAB PO SCH (08:45)
[2016-04-19] MEDS: PANTOprazole SOD 40 MG TAB PO SCH (08:46)
[2016-04-19] MEDS: METOPROLOL SUCC 25MG EXT REL TAB PO SCH (08:49)
[2016-04-19] MEDS: LISINOPRIL 20 MG TAB PO SCH (08:49)
[2016-04-19] MEDS: ACETAMINOPHEN 325 MG TAB PO PRN ×2 (11:47→21:36)
[2016-04-19 12:28] LABS: CKMB/CK RATIO 2.9 (0-3.0)
[2016-04-19 12:37] LABS: INFLUENZA A PCR Neg for Influ A (NEG); INFLUENZA B PCR Neg for Influ B (NEG)
--- NOTE | 2016-04-19 13:11 | ECHOCARDIOGRAM REPORT ---
*NOTICE TO RECEIVING DEMOCRAT AGENCY This information is strictly Confidential and protected under [place] law. [place] law prohibits you from making any further disclosure of this information unless further disclosure is expressly permitted by the written consent of the person to whom it pertains or is authorized by law. A general authorization for the release of medical or other information is not sufficient for this purpose. Hospital accepts no responsibility if the information is made available to any other person, INCLUDING THE PATIENT. Interpretation Summary * Name: FRENCH BEE Study Date: 04/19/2016 07:12 AM BP: 115/67 mmHg * Patient Location: .2T\S\S239\S\2 HR: 69 * : 1925 (M/d/yyy) Gender: Female Height: 62 in * Age: 89 yrs Ethnicity: [place] Weight: 160 lb * Ordering Physician: Anette Johnson * Referring Physician: Self, Referred * Performed By: Grace Jamison RDCS * * Reason For Study: Congestive Heart Failure * BSA: 1.7 m2 * -- Conclusions -- * Compared with 11/08/11 study, trans-aortic prosthetic valve gradient has increased modestly, otherwise no significant change. * The left ventricle is normal in size. * Left ventricular systolic function is normal. * Ejection Fraction = 55-60%. * There is mild concentric left ventricular hypertrophy. * The left ventricular wall motion is normal. * Top normal aortic valve prosthetic gradient (mild functional stenosis likely). * There is mild mitral regurgitation. * The left atrium is borderline dilated. * There is moderate tricuspid regurgitation. * Right ventricular systolic pressure is elevated at 40-50mmHg. Procedure Details * A complete two-dimensional transthoracic echocardiogram was performed (2D, M-mode, Doppler and color flow Doppler). * The study was technically difficult. * The study was technically difficult, but visualization was adequate with the administration of Definity ultrasound contrast. * A contrast injection of Definity was performed to improve assessment of LV function. * Contrast was injected into an intravenous site in the left arm. * One vial of Definity ultrasound contrast was diluted in normal saline to a total volume of 10 ml. A total of '2' ml of solution was administered during imaging. * Lot # [id number] of Definity utilized for procedure. * Expiration date UN. * The attending nurse who injected the contrast agent was Daniel Dang RN. Left Ventricle * The left ventricle is normal in size. * There is mild concentric left ventricular hypertrophy. * Ejection Fraction = 55-60%. * Left ventricular systolic function is normal. * The left ventricular wall motion is normal. Right Ventricle * The right ventricle is normal in size and function. Atria * The left atrium is borderline dilated. * Right atrial size is normal. * The interatrial septum is intact with no evidence for an atrial septal defect. Mitral Valve * The mitral valve is normal in structure and function. * There is mild mitral regurgitation. Tricuspid Valve * The tricuspid valve is normal in structure and function. * Right ventricular systolic pressure is elevated at 40-50mmHg. * There is moderate tricuspid regurgitation. Aortic Valve * The aortic valve is not well visualized. * There is no significant aortic regurgitation. * Top normal aortic valve prosthetic gradient (mild functional stenosis likely). Pulmonic Valve * There is no significant pulmonary regurgitation. Great Vessels * Borderline aortic root dilatation. * No obvious dissection could be visualized. * The pulmonary artery is not well visualized, but is probably normal size. Pericardium/Pleural * There is no pericardial effusion. MMode 2D Measurements and Calculations IVSd 1.1 cm IVSs 1.5 cm LVIDd 3.3 cm LVIDs 2.3 cm LVPWd 1.2 cm LVPWs 1.7 cm IVS/LVPW 0.90 FS 32.2 % EDV(Teich) 44.9 ml ESV(Teich) 17.2 ml EF(Teich) 61.7 % EDV(cubed) 36.7 ml ESV(cubed) 11.4 ml EF(cubed) 68.9 % % IVS thick 41.6 % % LVPW thick 38.5 % LV mass(C)d 118.4 grams LV mass(C)dI 68.1 grams/m\S\2 LV mass(C)s 128.0 grams LV mass(C)sI 73.6 grams/m\S\2 SV(Teich) 27.7 ml SI(Teich) 15.9 ml/m\S\2 SV(cubed) 25.3 ml SI(cubed) 14.5 ml/m\S\2 Ao root diam 3.6 cm Ao root area 10.4 cm\S\2 ACS 2.1 cm LA dimension 3.4 cm asc Aorta Diam 3.7 cm LA/Ao 0.93 LVAd ap4 14.9 cm\S\2 LVLd ap4 6.1 cm EDV(MOD-sp4) 32.5 ml EDV(sp4-el) 31.1 ml LVAs ap4 9.3 cm\S\2 LVLs ap4 5.9 cm ESV(MOD-sp4) 14.0 ml ESV(sp4-el) 12.5 ml EF(MOD-sp4) 56.9 % EF(sp4-el) 59.9 % LVAd ap2 15.6 cm\S\2 LVLd ap2 6.8 cm EDV(MOD-sp2) 32.3 ml EDV(sp2-el) 30.3 ml LVAs ap2 8.3 cm\S\2 LVLs ap2 5.3 cm ESV(MOD-sp2) 11.7 ml ESV(sp2-el) 11.0 ml EF(MOD-sp2) 63.9 % EF(sp2-el) 63.9 % LVLd %diff 10.7 % EDV(MOD-bp) 33.4 ml LVLs %diff -10.95 % ESV(MOD-bp) 13.4 ml EF(MOD-bp) 59.7 % SV(MOD-sp4) 18.5 ml SI(MOD-sp4) 10.6 ml/m\S\2 SV(MOD-sp2) 20.7 ml SI(MOD-sp2) 11.9 ml/m\S\2 SV(MOD-bp) 20.0 ml SI(MOD-bp) 11.5 ml/m\S\2 SV(sp4-el) 18.6 ml SI(sp4-el) 10.7 ml/m\S\2 SV(sp2-el) 19.4 ml SI(sp2-el) 11.1 ml/m\S\2 Doppler Measurements and Calculations MV E max catie 82.1 cm/sec MV A max catie 74.8 cm/sec MV E/A 1.1 MV dec time 0.31 sec Ao V2 max 224.5 cm/sec Ao max PG 20.2 mmHg Ao max PG (full) 17.5 mmHg Ao V2 mean 147.9 cm/sec Ao mean PG 9.9 mmHg Ao mean PG (full) 8.7 mmHg Ao V2 VTI 47.9 cm LV V1 max PG 2.6 mmHg LV V1 mean PG 1.2 mmHg LV V1 max 81.4 cm/sec LV V1 mean 50.4 cm/sec LV V1 VTI 19.7 cm SV(Ao) 498.1 ml SI(Ao) 286.5 ml/m\S\2 PA V2 max 78.6 cm/sec PA max PG 2.5 mmHg TR max catie 246.7 cm/sec
--- NOTE | 2016-04-19 13:48 | Family Medicine Progress Note ---
Progress Note Date of Service Apr 19, 2016. Subjective Pt evaluation today including: conversation w/ patient Feels her breathing is ok, though she has pain diffusely, from her head to her legs. Is ambulating well, feels she needs to do PT. Has stopped peeing as much as she was before. Constitutional: No fever, No sweats, No weight loss Eyes: No worsening of vision ENT: No hearing loss Respiratory: + dyspnea on exertion, No cough, No shortness of breath, No sputum, No wheezing Breast: No breast lump Abdomen: No constipation, No diarrhea, No nausea, No pain Musculoskeletal: + joint pain Female : + urinary frequency, No dysuria All Other Systems: Reviewed and Negative Medications Current Inpatient Medications Medications (Trade) Dose Ordered Sig/Sapphire Route Start Time Stop Time Status Last Admin Dose Admin Heparin Sodium (Porcine) (Heparin Sq 5000 Unit/0.5ml) 5,000 unit Q8 SQ 04/18/16 22:00 05/18/16 21:59 04/19/16 06:15 5,000 UNIT Acetaminophen (Tylenol Tab) 650 mg Q4H PRN PO 04/18/16 17:15 05/18/16 17:14 04/19/16 11:47 650 MG Al Hydrox/Mg Hydrox/Simethicone (Maalox Max Susp) 15 ml Q4H PRN PO 04/18/16 17:15 05/18/16 17:14 Magnesium Hydroxide (Milk Of Magnesia Susp) 30 ml Q12H PRN PO 04/18/16 17:15 05/18/16 17:14 Ondansetron HCl (Zofran Inj) 4 mg Q6H PRN IV 04/18/16 17:15 05/18/16 17:14 Nitroglycerin (Nitroglycerin 2% Oint) 1 inch Q6 EXT 04/18/16 23:00 05/18/16 22:59 04/19/16 11:46 1 INCH Polyethylene (Miralax Powder Packet) 17 gm DAILY PRN PO 04/18/16 17:15 05/18/16 17:14 Metoprolol Succinate (Toprol Xl Tab) 25 mg QAM PO 04/19/16 09:00 05/19/16 08:59 04/19/16 08:49 25 MG Aspirin (Ecotrin Tab) 81 mg DAILY PO 04/19/16 09:00 05/19/16 08:59 04/19/16 08:44 81 MG Atorvastatin Calcium (Lipitor Tab) 10 mg DAILY PO 04/19/16 09:00 05/19/16 08:59 04/19/16 08:45 10 MG Gabapentin (Neurontin Cap) 300 mg HS PO 04/18/16 21:00 05/18/16 20:59 04/18/16 21:28 300 MG Levothyroxine Sodium (Synthroid Tab) 75 mcg DAILYBB PO 04/19/16 06:00 05/19/16 06:59 04/19/16 06:12 75 MCG Mirtazapine (Remeron Tab) 15 mg HS PO 04/18/16 21:00 05/18/16 20:59 04/18/16 21:28 15 MG Potassium Chloride (Klor-Con M10) 10 meq DAILY PO 04/19/16 09:00 05/19/16 08:59 04/19/16 08:45 10 MEQ Pantoprazole Sodium (Protonix Tab) 40 mg QAM PO 04/19/16 09:00 05/19/16 08:59 04/19/16 08:46 40 MG Memantine (Namenda Tab) 10 mg QAM PO 04/19/16 09:00 05/19/16 08:59 04/19/16 08:45 10 MG Lisinopril (Zestril Tab) 20 mg QAM PO 04/19/16 09:00 05/19/16 08:59 04/19/16 08:49 20 MG Metoprolol Tartrate (Lopressor Iv) 5 mg Q6 PRN IV 04/18/16 17:30 05/18/16 17:29 Objective Vital Signs Date Time Temp Pulse Resp B/P Pulse Ox O2 Delivery O2 Flow Rate FiO2 04/19/16 12:00 Room Air 04/19/16 11:15 36.6 59 18 133/66 96 Room Air 04/19/16 08:00 Room Air 04/19/16 07:38 36.6 69 18 115/67 91 Room Air 04/19/16 04:11 36.6 65 20 90/55 94 Room Air 04/19/16 04:00 Room Air 04/19/16 01:13 36.4 77 18 135/78 91 Room Air 04/19/16 00:35 77 20 129/72 94 Room Air 04/19/16 00:30 91 Room Air 04/18/16 23:32 76 04/18/16 22:52 79 20 136/75 92 Room Air 04/18/16 18:25 91 26 197/137 93 Room Air 04/18/16 15:07 97 26 198/102 93 Room Air 04/18/16 14:27 94 Room Air 04/18/16 13:55 182/112 Physical Exam General Appearance: WD/WN, no apparent distress Eyes: normal inspection, PERRL ENT: hearing grossly normal Neck: supple, no JVD Respiratory/Chest: lungs clear, normal breath sounds, no respiratory distress Cardiovascular: regular rate, rhythm, no murmur Abdomen: normal bowel sounds, non tender, soft Extremities: + pertinent finding (posterior knee slightly tender initially, then on further palpation legs soft ) Neurologic/Psychiatric: alert, normal mood/affect, oriented x 3 Skin: no rash Laboratory Results Last 24 Hours Test 04/18/16 13:55 04/18/16 14:10 04/18/16 23:27 04/19/16 05:08 White Blood Count 6.72 K/uL 6.91 K/uL Red Blood Count 3.97 M/uL 3.97 M/uL Hemoglobin 12.4 g/dL 12.6 g/dL Hematocrit 36.4 % 36.4 % Mean Corpuscular Volume 91.7 fL 91.7 fL Mean Corpuscular Hemoglobin 31.2 pg 31.7 pg Mean Corpuscular Hemoglobin Concent 34.1 g/dl 34.6 g/dl Platelet Count 207 K/uL 210 K/uL Mean Platelet Volume 9.7 fL 9.5 fL Neutrophils (%) (Auto) 73.9 % 70.3 % Lymphocytes (%) (Auto) 15.0 % 14.5 % Monocytes (%) (Auto) 10.0 % 13.9 % Eosinophils (%) (Auto) 0.9 % 0.9 % Basophils (%) (Auto) 0.1 % 0.3 % Neutrophils # (Auto) 4.96 K/uL 4.86 K/uL Lymphocytes # (Auto) 1.01 K/uL 1.00 K/uL Monocytes # (Auto) 0.67 K/uL 0.96 K/uL Eosinophils # (Auto) 0.06 K/uL 0.06 K/uL Basophils # (Auto) 0.01 K/uL 0.02 K/uL RDW Standard Deviation 44.3 fL 44.4 fL RDW Coefficient of Variation 13.2 % 13.2 % Immature Granulocyte % (Auto) 0.1 % 0.1 % Immature Granulocyte # (Auto) 0.01 K/uL 0.01 K/uL Prothrombin Time 11.4 SECONDS Prothromb Time International Ratio 1.1 Sodium Level 135 mmol/L 135 mmol/L Potassium Level 4.3 mmol/L 3.7 mmol/L Chloride Level 99 mmol/L 98 mmol/L Carbon Dioxide Level 28 mmol/L 29 mmol/L Anion Gap 8.0 mmol/L 8.0 mmol/L Blood Urea Nitrogen 13 mg/dl 16 mg/dl Creatinine 0.93 mg/dl 1.10 mg/dl Est Creatinine Clear Calc Drug Dose 40.0 ml/min 33.8 ml/min Estimated GFR () 63.6 51.9 Estimated GFR (Non- 54.9 44.8 BUN/Creatinine Ratio 13.9 14.8 Random Glucose 109 mg/dl 106 mg/dl Calcium Level 8.9 mg/dl 8.7 mg/dl Total Bilirubin 0.5 mg/dl 0.5 mg/dl Aspartate Amino Transf (AST/SGOT) 27 U/L 24 U/L Alanine Aminotransferase (ALT/SGPT) 25 U/L 23 U/L Alkaline Phosphatase 108 U/L 105 U/L Total Creatine Kinase 45 U/L 60 U/L 70 U/L Creatine Kinase MB 1.3 ng/ml 1.9 ng/ml 2.1 ng/ml Creatine Kinase MB Ratio 2.9 3.2 3.0 Troponin I < 0.015 ng/ml < 0.015 ng/ml < 0.015 ng/ml Pro-B-Type Natriuretic Peptide 1727 pg/ml Total Protein 7.2 gm/dl 6.9 gm/dl Albumin 3.4 gm/dl 3.4 gm/dl Globulin 3.8 gm/dl 3.5 gm/dl Albumin/Globulin Ratio 0.9 1.0 Urine Color YELLOW Urine Appearance CLEAR Urine pH 7.5 Urine Specific Manning 1.002 Urine Protein NEG Urine Glucose (UA) NEG Urine Ketones NEG Urine Occult Blood NEG Urine Nitrite NEG Urine Bilirubin NEG Urine Urobilinogen NEG Urine Leukocyte Esterase MODERATE Urine WBC (Auto) 10-30 /hpf Urine RBC (Auto) 0-4 /hpf Urine Hyaline Casts (Auto) 0 /lpf Urine Epithelial Cells (Auto) >30 /lpf Urine Bacteria (Auto) 1+ Test 04/19/16 11:00 04/19/16 11:25 Influenza Type A (RT-PCR) Neg for Influ A Influenza Type B (RT-PCR) Neg for Influ B Total Creatine Kinase 85 U/L Creatine Kinase MB 2.5 ng/ml Creatine Kinase MB Ratio 2.9 Troponin I < 0.015 ng/ml Assessment and Plan 89 yo F, with history of hypertension, aortic valve replacement (pig valve, in 2005), who presented with shortness of breath - initially presumed to be CHF exacerbation, had good diuresis with 20mg IV Lasix, but CXR shows L pleural effusion and pt reports diffuse pain / overall weakness. Plan Shortness of breath - differential includes Acute CHF exacerbation but will also consider PE and flu - CT Chest for PE - Flu negative - Echocardiogram completed - Offered pt Coon again - Received 20mg IV Lasix initially, no further needed - Strict I&O monitoring - Continue daily weights - Repeat CXR tomorrow AM again - Cardiac enzymes negative - Low salt diet Hypertension - Continue Toprol XL 25mg daily - Continue Lisinopril 20mg today - PRN Lopressor 5mg IV q6h SBP > 180 or DBP > 110 Leg tenderness/ edema - Will rule out DVT with US Depression - Continue Mirtazapine 15mg qHS CODE STATUS: DNR VTE: Heparin q8h Dispo: Telemetry Resident Physician Supervision Note: I was present with the resident during the history and exam. I discussed the case with the resident and agree with the findings and plan as documented in the note. Any exceptions or clarifications are listed here: Upon exam, the patient has much less dyspnea. She continues to complain of pain all over; it sounds that this is more chronic rather than acute. The patient had significant diuresis with 20 mg of intravenous Lasix. However she was incontinent for much of this so we are unable to quantify her output. Her chest x-ray this morning really does not show congestive change; her BNP from admission was only slightly elevated. Agree with CT of the chest today to rule out pulmonary embolus as etiology of her shortness of breath. She does have some lower show any edema and might of had some subtle heart failure yesterday; she seems euvolemic today. No further diuresis today. Given reported shortness of breath and generalized pain also recommend swab for influenza. Documented By: Sekou Haskins Resident Tracking Resident Involvement: Resident Care Provided Care Provided: Adult Hospital Medicine
--- NOTE | 2016-04-19 16:44 | DIAGNOSTIC IMAGING REPORT ---
CT ANGIOGRAPHY OF THE CHEST, PULMONARY EMBOLUS PROTOCOL CLINICAL HISTORY: Shortness of breath. Congestive heart failure. Left basilar opacity. COMPARISON STUDY: Chest CT November 27, 2011 and chest radiograph April 19, 2016. TECHNIQUE: Following IV administration of 68 mL of Optiray-320, helical axial images of the chest were obtained utilizing the pulmonary embolus protocol. Maximal intensity projections and sagittal and coronal reformats were viewed on an independent 3D workstation. IV contrast was administered without complication. CT DOSE: 446.36 mGy.cm FINDINGS: No pulmonary emboli are identified. The subsegmental vessels are suboptimally assessed due to respiratory motion. There are median sternotomy wires. The heart is moderately enlarged. There is no pericardial effusion. There is a prosthetic aortic valve. No pneumothorax or pleural effusion is present. Groundglass opacities favors atelectasis. The central airways are patent. The bony thorax and upper abdomen are unremarkable. There is no thoracic lymphadenopathy. The postoperative findings within the right breast. IMPRESSION: 1. No pulmonary emboli identified. 2. Scattered subpleural and groundglass opacities which favor atelectasis. An infectious process is considered less likely. 3. Moderate cardiomegaly. 4. No evidence of pulmonary edema. Electronically signed by: Micheal Danielson M.D. 04/19/2016 4:42 PM Dictated Date/Time: 04/19/2016 4:29 PM
[2016-04-19] MEDS: GABAPENTIN 300 MG CAP PO SCH (20:52)
[2016-04-19] MEDS: MIRTAZAPINE TAB 15 MG TAB PO SCH (20:53)
[2016-04-19 23:16] LABS: URINE APPEARANCE CLEAR (CLEAR); URINE BILIRUBIN NEG (NEG); URINE COLOR YELLOW; URINE EPITHELIAL CELL AUTO >30 /lpf (0-5); URINE NITRITE NEG (NEG); URINE SPECIFIC GRAVITY 1.022 (1.000-1.030); UROBILINOGEN NEG (NEG)
[2016-04-19 23:20] LABS: MANUAL MICROSCOPIC REQUIRED? NO; REVIEW REQ? NO
[2016-04-20 00:01] VITALS: O2SAT 91
[2016-04-20 03:15] VITALS: BP 119/70; PULSE 63; TEMP 36.4; O2SAT 92
[2016-04-20 05:47] VITALS: BP 130/76
[2016-04-20] MEDS: NITROGLYCERIN OINT 2% 1GM PACKET EXT SCH ×2 (05:48→11:37)
[2016-04-20] MEDS: LEVOTHYROXINE 75 MCG TAB PO SCH (05:49)
[2016-04-20] MEDS: HEPARIN SOD 5000 UNIT/0.5 ML CARP SQ SCH (05:54)
[2016-04-20 07:12] LABS: BASO % 0.4 %; BASO ABS # 0.02 K/uL (0-0.2); COMPLETE YES; EOS % 2.9 %; HEMATOCRIT 38.4 % (37-47); IG% 0.4 %; LYMPH % 23.8 %; LYMPH ABS # 1.16 K/uL (1.2-3.4); MEAN CELL VOLUME 92.1 fL (80-100); MEAN CORPUSCULAR HEMOGLOBIN 31.2 pg (25-34); MEAN CORPUSCULAR HGB CONC 33.9 g/dl (32-36); NEUT % 58.5 %; PLATELET COUNT 186 K/uL (130-400); RED BLOOD COUNT 4.17 M/uL (4.2-5.4); WHITE BLOOD COUNT 4.87 K/uL (4.8-10.8)
[2016-04-20 07:38] LABS: BUN/CREATININE RATIO 18.7 (10-20); CALCIUM 8.9 mg/dl (8.5-10.1); POTASSIUM 4.3 mmol/L (3.5-5.1)
[2016-04-20 07:40] VITALS: BP 138/81; PULSE 68; TEMP 36.4; O2SAT 93
[2016-04-20] MEDS: ACETAMINOPHEN 325 MG TAB PO PRN ×2 (08:06→12:21)
[2016-04-20] MEDS: POTASSIUM CHLORIDE 10 MEQ TABCR PO SCH (08:24)
[2016-04-20] MEDS: MEMANTINE 10 MG TAB PO SCH (08:24)
[2016-04-20] MEDS: ASPIRIN 81 MG ECTAB PO SCH (08:24)
[2016-04-20] MEDS: ATORVASTATIN 10 MG TAB PO SCH (08:24)
[2016-04-20] MEDS: PANTOprazole SOD 40 MG TAB PO SCH (08:25)
[2016-04-20] MEDS: METOPROLOL SUCC 25MG EXT REL TAB PO SCH (08:26)
[2016-04-20] MEDS: LISINOPRIL 20 MG TAB PO SCH (08:29)
--- NOTE | 2016-04-20 09:36 | DIAGNOSTIC IMAGING REPORT ---
CHEST 2 VIEWS ROUTINE CLINICAL HISTORY: Weakness. A left basilar opacity COMPARISON STUDY: Chest radiograph and chest CT April 19, 2016. FINDINGS: There are median sternotomy wires and a prosthetic cardiac valve. There is no pneumothorax. Blunting of the left costophrenic angle is likely chronic. Minimal left basilar opacity favors atelectasis. There is no evidence of pulmonary edema. Moderate cardiomegaly is noted. IMPRESSION: 1. No acute findings. 2. Minimal left basilar opacity which favors atelectasis. 3. Moderate cardiomegaly without evidence of pulmonary edema. Electronically signed by: Micheal Danielson M.D. 04/20/2016 9:35 AM Dictated Date/Time: 04/20/2016 9:34 AM
[2016-04-20] MEDS ORDERED: FURO20TA PO (10:54)
[2016-04-20] MEDS ORDERED: LSN20 PO (10:54)
--- NOTE | 2016-04-20 10:58 | Discharge Instructions ---
Discharge Instructions Admission Reason for Admission: Congestive Heart Failure Discharge Discharge Diagnosis / Problem: 1) Hypertension; 2) Mild CHF Discharge Goals Goal(s): Improve function, Increase independence Activity Recommendations Activity Limitations: resume your previous activity Lifting Limitations: none Exercise/Sports Limitations: as tolerated Shower/Bathe: no limitations Driving or Machine Use: no limitations . Instructions / Follow-Up Instructions / Follow-Up Call your Primary Care doctor if any of the following symptoms or problems start or get worse: * Shortness of breath or difficulty breathing * Wake up at night short of breath * Chest pain * Cough * Swelling of your hands, feet, or legs * More fatigued or tired with your normal activity * Palpitations - sudden fast heart beats WEIGHT * Weigh yourself every morning after using the bathroom. * Use the same scale. * Wear the same amount of clothing. * Write your weight down on a chart. * Call your Primary Care doctor if you gain more than 2-3 pounds in 1-2 days. MEDICATIONS * Use this discharge instruction sheet for medication instructions. * Take your medications at the time your doctor ordered. * Do not skip a dose of your medicines. * If you miss a dose of medicine, take it as soon as possible, but DO NOT DOUBLE A DOSE. * Read your medicine information when you get home. * Know all of the side effects of your medicine. If in doubt, ask your pharmacist * Call your Primary Care doctor's office if you have any side effects. * Be sure all of your doctors know what medicine and herbs you take (including cold, flu, and herbal medicine). Take the following with you to your follow-up doctor appointments: * Weight Chart * Medication List * List of questions Do not drink excessive alcohol, beer or wine. Current Hospital Diet Patient's current hospital diet: Low Sodium Diet (2gm Na), AHA Diet (Heart Healthy) Discharge Diet Recommended Diet: AHA Diet (Heart Healthy) Procedures Procedures Performed: Echocardiogram Pending Studies Studies pending at discharge: no Medical Emergencies . Who to Call and When: Call 911 or go to the Emergency Room if: * If at any time you feel your situation is an emergency * You have tightness or pain in your chest that does not go away with rest or Nitroglycerin * You are very short of breath even with rest . Non-Emergent Contact Non-Emergency issues call your: Primary Care Provider . . "Provider Documentation" section prepared by Sekou Haskins. VTE Core Measure Inpt VTE Proph given/why not?: Unfractionated heparin SQ
--- NOTE | 2016-04-20 11:08 | Discharge Summary ---
Discharge Summary Admission Date: Apr 18, 2016 at 17:13 Discharge Date: Apr 20, 2016 Discharge Disposition: Home Principal Diagnosis: 1) Mild CHF 2) Elevated BP Problems/Secondary Diagnoses: 1) Pain (OA) Immunizations: Have You Had Influenza Vaccine: Yes Influenza Vaccine Date: Dec 13, 2010 History of Tetanus Vaccine?: Unknown History of Pneumococcal: Yes Pneumococcal Date: Dec 13, 2010 History of Hepatitis B Vaccine: Unknown Procedures: None Consultations: None Medication Reconciliation New Medications: Furosemide (Lasix) 20 Mg Tab 20 MG PO DAILY for 15 Days, #30 1 Refill Lisinopril (Lisinopril) 20 Mg Tab 20 MG PO QAM for Blood Pressure for 30 Days, #30 TAB Continued Medications: Ascorbic Acid (Vitamin C) 500 Mg Tab 1 TAB PO DAILY Aspirin Enteric Coated (Ecotrin Or Generic *) 81 Mg Ectab 81 MG PO DAILY, 0 Refills Atorvastatin (Lipitor) 10 Mg Tab 10 MG PO DAILY Calcium Carbonate-Vitamin D (Calcium) 1 Tab Tab 1 TAB PO DAILY Clindamycin Hcl (Cleocin) 300 Mg Cap 300 MG PO UD for 7 Days, CAP PRIOR TO DENTAL Gabapentin (Neurontin) 300 Mg Cap 300 MG PO HS, 0 Refills Ibuprofen (Advil) 200 Mg Tab 200 MG PO PRN, TAB Levothyroxine (Synthroid *) 0.075 Mg Tab 0.075 MG PO DAILY, 0 Refills Memantine Hcl (Namenda Xr) 14 Mg Cap 14 MG PO DAILY Metoprolol Succinate (Toprol Xl) 25 Mg Tabcr 25 MG PO DAILY, TAB Mirtazapine (Mirtazapine) 15 Mg Tab 15 MG PO HS Multivitamin (Multivitamin) Tab 1 TABLET PO DAILY, 0 Refills Omeprazole (Prilosec) 40 Mg Cap 40 MG PO DAILY, CAP Potassium Chloride (Micro-K Ext Rel) 10 Meq Capcr 10 MEQ PO DAILY, CAP Discharge Exam Review of Systems: Constitutional: No chills, No fever ENT: No hearing loss, No sore throat, No unusual epistaxis Respiratory: No cough, No sputum Cardiovascular: No chest pain, No edema, No orthopnea, No palpitations Abdomen: No nausea, No pain Genitourinary - Female: No dysuria, No urinary frequency Neurologic: + memory loss Psychiatric: No depression symptoms Endocrine: No fatigue Physical Exam: General Appearance: WD/WN, no apparent distress Eyes: normal inspection, PERRL, EOMI ENT: normal ENT inspection, hearing grossly normal Neck: supple, no adenopathy Respiratory/Chest: chest non-tender, lungs clear, normal breath sounds, no respiratory distress, no accessory muscle use Cardiovascular: regular rate, rhythm Abdomen / GI: normal bowel sounds, non tender Extremities: normal inspection, no calf tenderness, normal capillary refill Neurologic/Psychiatric: no motor/sensory deficits, alert, normal mood/affect , normal reflexes, oriented x 3 Skin: normal color Hospital Course 89 yo F, with history of hypertension, aortic valve replacement (pig valve, in 2005), who presents with shortness of breath - likely CHF exacerbation. Differential of triggers for exacerbation include ischemia, arrhythmia, diet related, chronic ibuprofen use, chronic hypertension, valvular issue. Plan Acute on chronic CHF exacerbation - Echocardiogram - Coon - Received 20mg IV Lasix so far - Strict I&O monitoring - Daily weights - CXR in AM - Low salt diet Hypertension - Continue Toprol XL 25mg daily - Will start Lisinopril 20mg today - PRN Lopressor 5mg IV q6h SBP > 180 or DBP > 110 Depression - Continue Mirtazapine 15mg qHS CODE STATUS: DNR VTE: Heparin q8h Dispo: HOSPITAL COURSE The patient was seen and evaluated in emergency department. She received 20 mg of intravenous Lasix and had prompt diuresis. Unfortunately the patient was incontinent of urine several times so strict I and O's were unable to obtain. The patient was subsequently admitted to telemetry. A follow-up chest x-ray the next morning did not show any evidence of congestive heart failure. No further doses of Lasix were administered. In looking back at the initial emergency department x-ray, there were some subtle changes suggesting early pulmonary edema although these had completely resolved on the follow-up chest x-ray. In light of this, and concerned that this was not the etiology of her shortness of breath, the patient underwent a CT scan to rule out pulmonary embolism on the day after admission. This was negative for pulmonary embolism and generally unremarkable with the exception of some atelectasis. The patient also presented to the emergency department elevated blood pressure. She was started on lisinopril 20 mg and subsequent blood pressures have been between 120 and 130 systolic. An echocardiogram was performed. It showed ejection fraction of 55-60%. There is mild concentric left ventricular hypertrophy. Left ventricular wall motion was noted to be normal. There is moderate tricuspid regurgitation and right ventricular systolic pressure is elevated at 40-55 mmHg. Top normal aortic valve prostatic gradient with mild functional stenosis likely. On the day of discharge, the patient was semi-reclined in her bed reading a newspaper. She stated that she slept well and was anxious to go home. She had some subtle confusion the night previous which is not uncommon for someone with baseline dementia in the hospital. She was able to make a lap around the floor using her walker without difficulty. I was able to speak to her son (PEDRO) by phone on the morning of discharge. I reviewed all test and results from this admission with him by phone. Either he or his sister will be in to take patient home today; since they are from out of town it may take a few hours. If they're unable to make it they will call us and we'll make further arrangements for transport home. I advised that the patient follow-up with Dr. Londono mid-to-late next week for blood pressure check. Patient also needs recheck a basic metabolic profile within noted addition of lisinopril and Lasix to her medication profile. Total Time Spent: Greater than 30 minutes This includes examination of the patient, discharge planning, medication reconciliation, and communication with other providers. Discharge Instructions Please refer to the electronic Patient Visit Report (Discharge Instructions) for additional information. Follow-Up PCP in one week.
[2016-04-20 11:21] VITALS: BP 138/81; PULSE 68; TEMP 36.4; O2SAT 93
[2016-04-20 11:46] VITALS: BP 147/85; PULSE 61; TEMP 36.3; O2SAT 93
--- NOTE | 2016-04-22 07:29 | EDITING REQUIRED CODING QUERY ---
CONGESTIVE HEART FAILURE Dr. Haskins, To promote full compliance with coding requirements relating to patient care, physician participation is requested in all cases of consumer affairs manager uncertainty. Please assist us with the following questions. A diagnosis of Congestive Heart Failure is documented in the patient's medical record. To accurately code this diagnosis and to compare patient severity, we ask that you specify the type of heart failure by placing an X within the parenthesis (x). SYSTOLIC HEART FAILURE (X) Acute ( ) Chronic ( ) Acute on Chronic ( ) Rheumatic ( ) Unknown DIASTOLIC HEART FAILURE ( ) Acute ( ) Chronic ( ) Acute on Chronic ( ) Rheumatic ( ) Unknown COMBINED SYSTOLIC AND DIASTOLIC HEART FAILURE ( ) Acute ( ) Chronic ( ) Acute on Chronic ( ) Rheumatic ( ) Unknown ( ) Other Please Explain: Thank you [place] Shankar
== END 2016-04-20 13:55 | disposition home or self-care (01) | DRG 293 ==
LOC: ENRESERVDT → ENRESERVTM → EDBD 13:08 → C.EDC 13:09 → C.EDINP 17:13 → C.2T 04-19 01:00
PROVIDERS: ADMIT Family Medicine; ATTEND Family Medicine
DX: I50.23 Acute on chronic systolic (congestive) heart failure (principal); D47.2 Monoclonal gammopathy; E78.5 Hyperlipidemia, unspecified; R32 Unspecified urinary incontinence; I10 Essential (primary) hypertension; M19.90 Unspecified osteoarthritis, unspecified site; F32.9 Major depressive disorder, single episode, unspecified; Z66 Do not resuscitate; Z95.3 Presence of xenogenic heart valve; Z83.1 Family history of other infectious and parasitic diseases; Z79.82 Long term (current) use of aspirin; Z79.899 Other long term (current) drug therapy

== ENCOUNTER → 2016-06-19 | Outpatient (CLI) | payer OTHER, MEDICARE ==
[~2016-06-19] MED LIST changes: -AMT10 PO; +ASCA500 PO; -AZIT250T PO; +CALC-51 PO; +CLIN300C2 PO; +FURO20TA PO; +GABA-113 PO; +IBUP-1277 PO; +LSN20 PO; -MELO7.5T5 PO; +MEMA1CAP3 PO; +METO25TA3 PO; +OMEP40CA41 PO; +POTA10CA28 PO; +RMR15 PO; -TORS10TA14 PO; -XNX25 PO
[2016-06-19 14:04] LABS: BASO % 0.3 %; BASO ABS # 0.02 K/uL (0-0.2); COMPLETE YES; EOS % 1.5 %; HEMATOCRIT 36.6 % (37-47); IG% 0.1 %; LYMPH % 17.4 %; LYMPH ABS # 1.24 K/uL (1.2-3.4); MEAN CELL VOLUME 93.1 fL (80-100); MEAN CORPUSCULAR HEMOGLOBIN 31.8 pg (25-34); MEAN CORPUSCULAR HGB CONC 34.2 g/dl (32-36); MEAN PLATELET VOLUME 10.5 fL (7.4-10.4); MONO % 13.1 %; NEUT % 67.6 %; PLATELET COUNT 219 K/uL (130-400); RED BLOOD COUNT 3.93 M/uL (4.2-5.4); WHITE BLOOD COUNT 7.12 K/uL (4.8-10.8)
[2016-06-19 14:13] LABS: BLOOD UREA NITROGEN 13 mg/dl (7-18); BUN/CREATININE RATIO 13.6 (10-20); CALCIUM 9.2 mg/dl (8.5-10.1); CARBON DIOXIDE 28 mmol/L (21-32); CHLORIDE 97 mmol/L (98-107); CREATININE 0.93 mg/dl (0.60-1.20); GLUCOSE 84 mg/dl (70-99); POTASSIUM 4.7 mmol/L (3.5-5.1); SODIUM 133 mmol/L (136-145)
== END | disposition home or self-care (01) ==
LOC: C.LABBC 09:50
PROVIDERS: ATTEND Internal Medicine Geriatric Medicine
DX: E03.9 Hypothyroidism, unspecified (principal); G62.9 Polyneuropathy, unspecified

== ENCOUNTER → 2016-06-27 | Outpatient (CLI) | payer OTHER, MEDICARE ==
[~2016-06-27] MED LIST changes: +ASPI-461 PO; +ATOR10TA82 PO; -ATOR10TA88 PO; +CEPH500C PO; +FRS/40 PO; +GABA1CAP PO; +IBUP-1050 PO; +LEVO75TA5 PO; +LISI40TA PO; +MIRT15TA2 PO; +MULT-513 PO; +NAPR1TAB9 PO; +ONDA4TAB10 SL; +PANT40TA PO; +SENN-61 PO; +TRAM-10 PO; +XRL15 PO
[2016-06-27 13:39] LABS: BLOOD UREA NITROGEN 18 mg/dl (7-18); BUN/CREATININE RATIO 14.8 (10-20); CALCIUM 9.5 mg/dl (8.5-10.1); CARBON DIOXIDE 26 mmol/L (21-32); CHLORIDE 93 mmol/L (98-107); GLUCOSE 126 mg/dl (70-99); POTASSIUM 4.2 mmol/L (3.5-5.1); SODIUM 130 mmol/L (136-145)
== END | disposition home or self-care (01) ==
LOC: C.LABOAKS 10:38
PROVIDERS: ATTEND Internal Medicine Geriatric Medicine
DX: I50.9 Heart failure, unspecified (principal); R60.9 Edema, unspecified

== ENCOUNTER → 2016-09-17 | Outpatient (CLI) | payer OTHER, MEDICARE ==
[2016-09-17 12:22] LABS: BASO % 0.2 %; BASO ABS # 0.01 K/uL (0-0.2); COMPLETE YES; EOS % 2.4 %; HEMATOCRIT 35.9 % (37-47); IG% 0.3 %; LYMPH % 14.7 %; LYMPH ABS # 0.86 K/uL (1.2-3.4); MEAN CORPUSCULAR HEMOGLOBIN 31.4 pg (25-34); MEAN CORPUSCULAR HGB CONC 33.4 g/dl (32-36); MEAN PLATELET VOLUME 10.5 fL (7.4-10.4); MONO % 12.1 %; NEUT % 70.3 %; PLATELET COUNT 211 K/uL (130-400); RED BLOOD COUNT 3.82 M/uL (4.2-5.4); WHITE BLOOD COUNT 5.86 K/uL (4.8-10.8)
[2016-09-17 13:50] LABS: BLOOD UREA NITROGEN 14 mg/dl (7-18); BUN/CREATININE RATIO 14.7 (10-20); CARBON DIOXIDE 27 mmol/L (21-32); CHLORIDE 97 mmol/L (98-107); CREATININE 0.93 mg/dl (0.60-1.20); GLUCOSE 85 mg/dl (70-99); POTASSIUM 4.3 mmol/L (3.5-5.1); SODIUM 133 mmol/L (136-145)
== END | disposition home or self-care (01) ==
LOC: C.LABOAKS 10:42
PROVIDERS: ATTEND Internal Medicine Geriatric Medicine
DX: E03.9 Hypothyroidism, unspecified (principal); D47.2 Monoclonal gammopathy; I50.9 Heart failure, unspecified; I10 Essential (primary) hypertension

== ENCOUNTER → 2017-01-09 | Outpatient (CLI) | payer OTHER, MEDICARE ==
[~2017-01-09] MED LIST changes: -ASPI-461 PO; -ATOR10TA82 PO; +ATOR10TA88 PO; -CEPH500C PO; -FRS/40 PO; -GABA1CAP PO; -IBUP-1050 PO; -LEVO75TA5 PO; -LISI40TA PO; -MIRT15TA2 PO; -MULT-513 PO; -NAPR1TAB9 PO; -ONDA4TAB10 SL; -PANT40TA PO; -SENN-61 PO; -TRAM-10 PO; -XRL15 PO
--- NOTE | 2017-01-09 12:12 | DIAGNOSTIC IMAGING REPORT ---
VENOUS DOPPLER LWR EXT BILA CLINICAL HISTORY: 89 years-old Female presenting with EDEMA. TECHNIQUE: Real-time grayscale and color and spectral Doppler ultrasound imaging of the veins of the bilateral lower extremities was performed. Compression and augmentation were also utilized. COMPARISON: None. FINDINGS: Right: Common femoral vein: Patent. Femoral vein: Patent. Greater saphenous vein: Patent. Popliteal vein: Patent. Calf veins: Limited visualization. Left: Common femoral vein: Patent. Femoral vein: Patent. Greater saphenous vein: Patent. Popliteal vein: Patent. Calf veins: Limited visualization. Other: In the right popliteal fossa, complex lobular anechoic avascular collection measuring 2.7 x 1.8 x 1.9 cm. This is most consistent with a popliteal cyst. Subcutaneous edema in the lower legs, right greater than left. IMPRESSION: No evidence of deep venous thrombosis. Electronically signed by: Mando Jones M.D. 01/09/2017 12:10 PM Dictated Date/Time: 01/09/2017 12:08 PM
[2017-01-09 13:17] LABS: HEMATOCRIT 34.9 % (37-47); MEAN CELL VOLUME 94.8 fL (80-100); MEAN CORPUSCULAR HEMOGLOBIN 32.3 pg (25-34); MEAN CORPUSCULAR HGB CONC 34.1 g/dl (32-36); MEAN PLATELET VOLUME 9.8 fL (7.4-10.4); PLATELET COUNT 202 K/uL (130-400); RED BLOOD COUNT 3.68 M/uL (4.2-5.4); WHITE BLOOD COUNT 6.33 K/uL (4.8-10.8)
[2017-01-09 13:44] LABS: BLOOD UREA NITROGEN 13 mg/dl (7-18); BUN/CREATININE RATIO 16.2 (10-20); CARBON DIOXIDE 26 mmol/L (21-32); CHLORIDE 98 mmol/L (98-107); CREATININE 0.83 mg/dl (0.60-1.20); GLUCOSE 91 mg/dl (70-99); POTASSIUM 4.8 mmol/L (3.5-5.1); SODIUM 131 mmol/L (136-145)
== END | disposition home or self-care (01) ==
LOC: C.ULTRBC 11:06
PROVIDERS: ATTEND Internal Medicine Geriatric Medicine
DX: E03.9 Hypothyroidism, unspecified (principal); E78.5 Hyperlipidemia, unspecified; I10 Essential (primary) hypertension; R60.9 Edema, unspecified; Z95.2 Presence of prosthetic heart valve

== ENCOUNTER 2017-02-24 15:25 | Inpatient (IN) | payer OTHER, MEDICARE ==
[~2017-02-24] VITALS: Ht 152.4 cm; Wt 67.4 kg
[~2017-02-24 15:25] MED LIST changes: +ATOR10TA82 PO; -ATOR10TA88 PO
--- NOTE | 2017-02-24 15:52 | EMERGENCY ROOM VISIT NOTE ---
History Report prepared by Haider: Ashleigh Peñaloza Under the Supervision of: Dr. Sunil Plasencia D.O. First contact with patient: 15:42 Chief Complaint: CONFUSION Stated Complaint: IMPROPER TAKING OF MEDICINES, ELECTROLYTES History of Present Illness The patient is a 89 year old female who presents to the Emergency Room with complaints of worsening confusion. She is accompanied by her son. Her son reports 4 weeks ago, she has all of her upper and lower teeth removed and had dentures placed. Since then, she has had difficulty eating. Today, her family noticed increasing confusion and realized the patient has been mixing up her medications. She missed her Lisinopril recently and accidentally took a double dose of Gabapentin. The patient lives alone at the [facility] in Independent living. She has been eating soft foods for the past week. Her son states she has been increasingly lethargic and has had low energy since the dental surgery. She did experience a fall approximately 2 weeks ago, and was unable to get up by herself. She has complained of back pain since the fall, but never followed up with her PCP, Dr. Rick. The patient denies any recent fevers, shortness of breath or urinary symptoms. She does take diuretics and her son states her dose was recently increased. The patient complains of leg pain but denies any recent swelling in her legs. She denies any cough, neck pain or abdominal pain. Source of History: patient, family (son) Onset: 3 weeks PUMPER HEAD Position: other (global) Timing: worsening Associated Symptoms: + back pain, No fevers, No neck pain, No SOB, No abdominal pain, No urinary symptoms Review of Systems See HPI for pertinent positives & negatives. A total of 10 systems reviewed and were otherwise negative. 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 Family History Omitted secondary to age Social History Smoking Status: Never Smoker Alcohol Use: none Drug Use: none Marital Status: single Housing Status: lives with family Occupation Status: retired Current/Historical Medications Scheduled Ascorbic Acid (Vitamin C), 1 TAB PO DAILY Aspirin Enteric Coated (Ecotrin Or Generic *), 81 MG PO DAILY Atorvastatin (Lipitor), 10 MG PO DAILY Calcium Carbonate-Vitamin D (Calcium), 1 TAB PO DAILY Clindamycin Hcl (Cleocin), 300 MG PO UD Furosemide (Lasix), 40 MG PO DAILY Gabapentin (Neurontin), 300 MG PO HS Ibuprofen (Advil), 200 MG PO PRN Levothyroxine (Synthroid *), 0.075 MG PO DAILY Lisinopril (Zestril), 40 MG PO DAILY Memantine Hcl (Namenda Xr), 14 MG PO DAILY Metoprolol Succinate (Toprol Xl), 25 MG PO DAILY Mirtazapine (Mirtazapine), 15 MG PO HS Multivitamin (Multivitamin), 1 TABLET PO DAILY Omeprazole (Prilosec), 40 MG PO DAILY Potassium Chloride (Micro-K Ext Rel), 10 MEQ PO DAILY Allergies Coded Allergies: Penicillins (Verified Allergy, Intermediate, RXN = RASH, NO SOB, NO EDEMA PER PATIENT REPORT, 02/24/17) Sulfa Antibiotics (Verified Allergy, Intermediate, RXN = RASH, NO SOB, NO EDEMA PER PATIENT REPORT, 02/24/17) Erythromycin (Verified Allergy, Mild, unknown, 02/24/17) Lidocaine (Verified Allergy, Mild, 02/24/17) Tetracyclines (Verified Allergy, Mild, 02/24/17) Zinc (Verified Allergy, Mild, MADE JAW SORE WITH PASTE FOR DENTURES, 02/24) Morphine (Verified Adverse Reaction, Unknown, SENSITIVE TO MEDICATION, ) Physical Exam Vital Signs Date Time Temp Pulse Resp B/P (MAP) Pulse Ox O2 Delivery O2 Flow Rate FiO2 02/24/17 19:21 78 15 153/67 98 Room Air 02/24/17 17:35 88 158/108 95 Room Air 02/24/17 16:25 86 28 02/24/17 16:20 169/97 02/24/17 16:19 165/89 02/24/17 16:17 92 165/89 80 169/97 02/24/17 16:10 72 02/24/17 16:10 94 Room Air 02/24/17 15:34 36.9 75 20 122/73 96 Room Air Physical Exam GENERAL: Patient is awake, alert, appears to be comfortable and not in pain EYES: The conjunctivae are clear. The pupils are round and reactive. EARS, NOSE, MOUTH AND THROAT: The nose is without any evidence of any deformity. Mucous membranes are moist tongue is midline. There was no bleeding or swelling noted in the oropharynx. NECK: The neck is nontender and supple. RESPIRATORY: Normal respiratory effort is noted there is no evidence of wheezing rhonchi or rales CARDIOVASCULAR: Ectopy noted to auscultation, no definite murmur noted GASTROINTESTINAL: The abdomen is soft. Bowel sounds are present in all quadrants. Abdomen is nontender BACK: Low lumbar spine tenderness to palpation, ROM appears intact. No midline tenderness or or step-off noted range of motion in flexion extension as well as rotation no signs of muscle spasm noted MUSCULOSKELETAL/EXTREMITIES: There is no evidence of gross deformity full range of motion is noted in the hips and shoulders SKIN: Pedal edema bilaterally. There is no obvious evidence of any rash. There are no petechiae, pallor or cyanosis noted. NEUROLOGIC: Strength is symmetric, patient appears to be oriented to person, place but not time Medical Decision & Procedures ER Provider Diagnostic Interpretation: Radiology results as stated below per my review and radiologist interpretation: HEAD WITHOUT CONTRAST (CT) CLINICAL HISTORY: 89 years-old Female with EVALUATE ALTERED MENTAL STATUS/WEAKNESS. Acute altered mental status with weakness TECHNIQUE: Multiple axial CT images of the head were obtained without contrast. A dose lowering technique was utilized adhering to the principles of ALARA. CT DOSE: 750.83 mGy.cm COMPARISON: MRI brain 01/25/2015. FINDINGS: Exam is mildly motion degraded. No midline shift, mass, territorial ischemia or abnormal extra-axial collection. Focal 7 x 4 mm area of cortically based increased attenuation of the right temporal lobe on image 13 series 2 correlates with lesion seen on comparison brain MR 01/25/2015. No acute intracranial hemorrhage identified. Moderate atrophy. Chronic microvascular ischemic changes redemonstrated. The calvarium is intact. The paranasal sinuses, mastoid air cells, and middle ear cavities are clear. IMPRESSION: 1. No acute intracranial abnormality identified. 2. Focal 7 x 4 mm area of cortically based increased attenuation of the right temporal lobe as above correlates with lesion seen on comparison brain MRI 01/25/2015 suggesting a cerebral cavernous venous malformation. 3. Atrophy with chronic microvascular ischemic changes. The above report was generated using voice recognition software. It may contain grammatical, syntax or spelling errors. Electronically signed by: Kevin Gordillo M.D. 02/24/2017 5:32 PM Radiology results as stated below per my review and radiologist interpretation: CHEST 2 VIEWS ROUTINE HISTORY: 89 years-old Female BACK/CHEST PAIN acute atypical chest pain COMPARISON: Chest radiographs 04/20/2016 TECHNIQUE: Upright AP and lateral views of the chest FINDINGS: Cardiac silhouette is moderately enlarged, unchanged. There is atherosclerosis of the aorta. Prior median sternotomy with prosthetic cardiac valve. There is no pneumothorax or pleural effusion. Pulmonary hyperinflation is redemonstrated. Minimal left basilar opacity is again seen suggesting atelectasis. The bones are mildly demineralized. The level endplate changes are seen throughout the spine. Surgical clips of the upper abdomen suggest prior cholecystectomy. IMPRESSION: 1. No acute cardiopulmonary process. 2. Cardiomegaly without pulmonary edema. 3. Hyperinflation. The above report was generated using voice recognition software. It may contain grammatical, syntax or spelling errors. Electronically signed by: Kevin Gordillo M.D. 02/24/2017 6:40 PM L-SPINE MIN 4 VIEWS ROUTINE HISTORY: 89 years-old Female BACK/CHEST PAIN acute back and chest pain without reported trauma COMPARISON: Lumbar spine radiographs 02/25/2013, CT 11/23/2013 TECHNIQUE: 5 radiographic views of the lumbar spine. FINDINGS: 5 lumbar type vertebral segments are present. There is approximately 16 degrees levoscoliosis of the lumbar spine measured from L2-L5. Moderate degenerative changes of the bilateral hips with severe multilevel intervertebral disc space narrowing, endplate spurring and facet arthropathy. Evaluation for acute nondisplaced fracture is limited secondary to moderate bone demineralization and patient positioning. Remote compression deformity at L4. There is 30% anterior endplate compression deformity of L1 with 5 mm retropulsion which is new from most recent comparison CT 11/23/2013. Surgical clips of the right upper abdomen suggest prior cholecystectomy. Vascular calcifications are noted. IMPRESSION: 1. 30% anterior endplate compression deformity of L1 is age indeterminate, however is new from most recent comparison study 11/23/2013. There is approximately 5 mm retropulsion noted. 2. Remote compression deformity of L4. 3. Moderately demineralized bones. 4. Levoscoliosis. The above report was generated using voice recognition software. It may contain grammatical, syntax or spelling errors. Electronically signed by: Kevin Gordillo M.D. 02/24/2017 6:44 PM Laboratory Results 02/24/17 16:24 Red Blood Count 3.94, Mean Corpuscular Volume 92.6, Mean Corpuscular Hemoglobin 32.7, Mean Corpuscular Hemoglobin Concent 35.3, Mean Platelet Volume 9.4, Neutrophils (%) (Auto) 73.8, Lymphocytes (%) (Auto) 12.1, Monocytes (%) (Auto) 13.5, Eosinophils (%) (Auto) 0.3, Basophils (%) (Auto) 0.0, Neutrophils # (Auto ) 5.02, Lymphocytes # (Auto) 0.82, Monocytes # (Auto) 0.92, Eosinophils # (Auto ) 0.02, Basophils # (Auto) 0.00 02/24/17 16:24 Test 02/24/17 16:24 02/24/17 16:30 White Blood Count 6.80 K/uL (4.8-10.8) Red Blood Count 3.94 M/uL (4.2-5.4) Hemoglobin 12.9 g/dL (12.0-16.0) Hematocrit 36.5 % (37-47) Mean Corpuscular Volume 92.6 fL (80-100) Mean Corpuscular Hemoglobin 32.7 pg (25-34) Mean Corpuscular Hemoglobin Concent 35.3 g/dl (32-36) Platelet Count 192 K/uL (130-400) Mean Platelet Volume 9.4 fL (7.4-10.4) Neutrophils (%) (Auto) 73.8 % Lymphocytes (%) (Auto) 12.1 % Monocytes (%) (Auto) 13.5 % Eosinophils (%) (Auto) 0.3 % Basophils (%) (Auto) 0.0 % Neutrophils # (Auto) 5.02 K/uL (1.4-6.5) Lymphocytes # (Auto) 0.82 K/uL (1.2-3.4) Monocytes # (Auto) 0.92 K/uL (0.11-0.59) Eosinophils # (Auto) 0.02 K/uL (0-0.5) Basophils # (Auto) 0.00 K/uL (0-0.2) RDW Standard Deviation 43.7 fL (36.4-46.3) RDW Coefficient of Variation 12.9 % (11.5-14.5) Immature Granulocyte % (Auto) 0.3 % Immature Granulocyte # (Auto) 0.02 K/uL (0.00-0.02) Prothrombin Time 11.3 SECONDS (9.0-12.0) Prothromb Time International Ratio 1.1 (0.9-1.1) Activated Partial Thromboplast Time 31.8 SECONDS (21.0-31.0) Partial Thromboplastin Ratio 1.2 Anion Gap 9.0 mmol/L (3-11) Estimated GFR () 42.9 Estimated GFR (Non- 37.0 BUN/Creatinine Ratio 13.9 (10-20) Calcium Level 9.6 mg/dl (8.5-10.1) Phosphorus Level 2.5 mg/dl (2.5-4.9) Magnesium Level 2.5 mg/dl (1.8-2.4) Total Bilirubin 0.5 mg/dl (0.2-1) Direct Bilirubin 0.2 mg/dl (0-0.2) Aspartate Amino Transf (AST/SGOT) 27 U/L (15-37) Alanine Aminotransferase (ALT/SGPT) 25 U/L (12-78) Alkaline Phosphatase 133 U/L (45-117) Total Creatine Kinase 37 U/L (26-192) Creatine Kinase MB 1.6 ng/ml (0.5-3.6) Creatine Kinase MB Ratio 4.3 (0-3.0) Troponin I < 0.015 ng/ml (0-0.045) Pro-B-Type Natriuretic Peptide 793 pg/ml (0-1800) Total Protein 7.9 gm/dl (6.4-8.2) Albumin 3.8 gm/dl (3.4-5.0) Lipase 290 U/L (73-393) Thyroid Stimulating Hormone (TSH) 3.010 uIu/ml (0.300-4.500) Urine Color YELLOW Urine Appearance CLEAR (CLEAR) Urine pH 6.0 (4.5-7.5) Urine Specific Crescent 1.015 (1.000-1.030) Urine Protein NEG (NEG) Urine Glucose (UA) NEG (NEG) Urine Ketones NEG (NEG) Urine Occult Blood NEG (NEG) Urine Nitrite NEG (NEG) Urine Bilirubin NEG (NEG) Urine Urobilinogen NEG (NEG) Urine Leukocyte Esterase MODERATE (NEG) Urine WBC (Auto) 5-10 /hpf (0-5) Urine RBC (Auto) 0-4 /hpf (0-4) Urine Hyaline Casts (Auto) 1-5 /lpf (0-5) Urine Epithelial Cells (Auto) 10-20 /lpf (0-5) Urine Bacteria (Auto) 2+ (NEG) Laboratory results per my review. Medications Administered Medications (Trade) Dose Ordered Sig/Sapphire Route Start Time Stop Time Status Last Admin Dose Admin Ceftriaxone Sodium (Rocephin Inj) 1 gm NOW STAT IV 02/24/17 18:53 02/24/17 18:55 DC 02/24/17 19:12 1 GM Sodium Chloride 500 ml @ 999 mls/hr Q31M STAT IV 02/24/17 19:28 02/24/17 19:58 DC 02/24/17 19:33 999 MLS/HR ECG Indication: weakness Rate (beats per minute): 67 Rhythm: normal sinus Findings: PAC, other (LVH by voltage criteria, ST segment depressions laterally and inferiorly) Change: no significant change (No significant change from EKG on 04/20/16) ED Course 1544: The patient was evaluated in room B11B. A complete history and physical examination were performed. 1927: NSS 500 ml @ 999 mls/hr IV. 1939: I discussed the patients case with Dr. Alarcon, [facility] Hospitalist. The patient will be further evaluated. Medical Decision Prior records/ancillary studies reviewed and summarized above. Nursing notes reviewed. Additional history obtained from the patients family. The patient's history was concerning for altered mental status. Differential diagnosis: Etiologies such as metabolic, infection, hypoglycemia, electrolyte abnormalities , cardiac sources, intracerebral event, toxicologic, neurologic, as well as others were entertained. The patient is an 89-year-old female who presented to the emergency department for an evaluation of altered mental status. The patient also is had problems with falling recently. She had some low back pain but it sounds as though the fall. Days ago. The patient has also been taking her medications incorrectly. Her son is with her and he is from [place] and is very concerned for his mother safety could she lives in a personal skilled nursing does not a residential. I discussed the patient's laboratory and radiographic studies with her and her family. Because of her ongoing symptoms I discussed this case with the on-call [facility] hospitalist group. They've agreed to evaluate the patient in the emergency department for further management and disposition. Medication Reconcilliation Current Medication List: was personally reviewed by me Blood Pressure Screening Patient's blood pressure: Elevated blood pressure Blood pressure disposition: Referred to PCP Consults Time Called: 1930 Consulting Physician: Dr. Alarcon [facility] Hospitalist Returned Call: 1939 I discussed the patients case with Dr. Alarcon [facility] Hospitalist. The patient will be further evaluated. Impression Primary Impression: Weakness Additional Impressions: Hyponatremia Lumbar compression fracture Fall UTI (urinary tract infection) Scribe Attestation The scribe's documentation has been prepared under my direction and personally reviewed by me in its entirety. I confirm that the note above accurately reflects all work, treatment, procedures, and medical decision making performed by me. Departure Information Dispostion Being Evaluated By Hospitalist Referrals Geraldo Rick M.D. (PCP) Patient Instructions My [facility] Health Problem Qualifiers Additional Impressions: Lumbar compression fracture Encounter type: initial encounter Lumbar vertebra fracture level: L1 Fracture type: closed Qualified Codes: S32.010A - Wedge compression fracture of first lumbar vertebra, initial encounter for closed fracture Fall Encounter type: initial encounter Qualified Codes: W19.XXXA - Unspecified fall, initial encounter UTI (urinary tract infection) Urinary tract infection type: site unspecified Hematuria presence: without hematuria Qualified Codes: N39.0 - Urinary tract infection, site not specified
[2017-02-24] MEDS ORDERED: LISI40TA PO (16:26)
[2017-02-24] MEDS ORDERED: FRS/40 PO (16:26)
[2017-02-24 16:47] LABS: COMPLETE YES; EOS % 0.3 %; HEMATOCRIT 36.5 % (37-47); IG% 0.3 %; LYMPH % 12.1 %; LYMPH ABS # 0.82 K/uL (1.2-3.4); MEAN CELL VOLUME 92.6 fL (80-100); MEAN CORPUSCULAR HEMOGLOBIN 32.7 pg (25-34); MEAN CORPUSCULAR HGB CONC 35.3 g/dl (32-36); MEAN PLATELET VOLUME 9.4 fL (7.4-10.4); MONO % 13.5 %; NEUT % 73.8 %; PLATELET COUNT 192 K/uL (130-400); RED BLOOD COUNT 3.94 M/uL (4.2-5.4)
[2017-02-24 16:57] LABS: URINE APPEARANCE CLEAR (CLEAR); URINE BILIRUBIN NEG (NEG); URINE COLOR YELLOW; URINE NITRITE NEG (NEG); URINE SPECIFIC GRAVITY 1.015 (1.000-1.030); UROBILINOGEN NEG (NEG)
[2017-02-24 17:02] LABS: INR 1.1 (0.9-1.1); PARTIAL THROMBOPLASTIN RATIO 1.2; PROTHROMBIN TIME (PATIENT) 11.3 SECONDS (9.0-12.0)
[2017-02-24 17:03] LABS: MANUAL MICROSCOPIC REQUIRED? NO; REVIEW REQ? NO
[2017-02-24 17:10] LABS: ALT/SGPT 25 U/L (12-78); AST/SGOT 27 U/L (15-37); BLOOD UREA NITROGEN 18 mg/dl (7-18); BUN/CREATININE RATIO 13.9 (10-20); CALCIUM 9.6 mg/dl (8.5-10.1); CARBON DIOXIDE 29 mmol/L (21-32); CHLORIDE 89 mmol/L (98-107); CREATININE 1.28 mg/dl (0.60-1.20); GLUCOSE 109 mg/dl (70-99); MAGNESIUM 2.5 mg/dl (1.8-2.4); POTASSIUM 3.7 mmol/L (3.5-5.1); SODIUM 127 mmol/L (136-145)
[2017-02-24 17:19] LABS: ALKALINE PHOSPHATASE 133 U/L (45-117); CKMB/CK RATIO 4.3 (0-3.0); PHOSPHORUS 2.5 mg/dl (2.5-4.9)
--- NOTE | 2017-02-24 17:34 | DIAGNOSTIC IMAGING REPORT ---
HEAD WITHOUT CONTRAST (CT) CLINICAL HISTORY: 89 years-old Female with EVALUATE ALTERED MENTAL STATUS/WEAKNESS. Acute altered mental status with weakness TECHNIQUE: Multiple axial CT images of the head were obtained without contrast. A dose lowering technique was utilized adhering to the principles of ALARA. CT DOSE: 750.83 mGy.cm COMPARISON: MRI brain 01/25/2015. FINDINGS: Exam is mildly motion degraded. No midline shift, mass, territorial ischemia or abnormal extra-axial collection. Focal 7 x 4 mm area of cortically based increased attenuation of the right temporal lobe on image 13 series 2 correlates with lesion seen on comparison brain MR 01/25/2015. No acute intracranial hemorrhage identified. Moderate atrophy. Chronic microvascular ischemic changes redemonstrated. The calvarium is intact. The paranasal sinuses, mastoid air cells, and middle ear cavities are clear. IMPRESSION: 1. No acute intracranial abnormality identified. 2. Focal 7 x 4 mm area of cortically based increased attenuation of the right temporal lobe as above correlates with lesion seen on comparison brain MRI 01/25/2015 suggesting a cerebral cavernous venous malformation. 3. Atrophy with chronic microvascular ischemic changes. The above report was generated using voice recognition software. It may contain grammatical, syntax or spelling errors. Electronically signed by: Kevin Gordillo M.D. 02/24/2017 5:32 PM Dictated Date/Time: 02/24/2017 5:28 PM
--- NOTE | 2017-02-24 18:41 | DIAGNOSTIC IMAGING REPORT ---
CHEST 2 VIEWS ROUTINE HISTORY: 89 years-old Female BACK/CHEST PAIN acute atypical chest pain COMPARISON: Chest radiographs 04/20/2016 TECHNIQUE: Upright AP and lateral views of the chest FINDINGS: Cardiac silhouette is moderately enlarged, unchanged. There is atherosclerosis of the aorta. Prior median sternotomy with prosthetic cardiac valve. There is no pneumothorax or pleural effusion. Pulmonary hyperinflation is redemonstrated. Minimal left basilar opacity is again seen suggesting atelectasis. The bones are mildly demineralized. The level endplate changes are seen throughout the spine. Surgical clips of the upper abdomen suggest prior cholecystectomy. IMPRESSION: 1. No acute cardiopulmonary process. 2. Cardiomegaly without pulmonary edema. 3. Hyperinflation. The above report was generated using voice recognition software. It may contain grammatical, syntax or spelling errors. Electronically signed by: Kevin Gordillo M.D. 02/24/2017 6:40 PM Dictated Date/Time: 02/24/2017 6:38 PM
--- NOTE | 2017-02-24 18:45 | DIAGNOSTIC IMAGING REPORT ---
L-SPINE MIN 4 VIEWS ROUTINE HISTORY: 89 years-old Female BACK/CHEST PAIN acute back and chest pain without reported trauma COMPARISON: Lumbar spine radiographs 02/25/2013, CT 11/23/2013 TECHNIQUE: 5 radiographic views of the lumbar spine. FINDINGS: 5 lumbar type vertebral segments are present. There is approximately 16 degrees levoscoliosis of the lumbar spine measured from L2-L5. Moderate degenerative changes of the bilateral hips with severe multilevel intervertebral disc space narrowing, endplate spurring and facet arthropathy. Evaluation for acute nondisplaced fracture is limited secondary to moderate bone demineralization and patient positioning. Remote compression deformity at L4. There is 30% anterior endplate compression deformity of L1 with 5 mm retropulsion which is new from most recent comparison CT 11/23/2013. Surgical clips of the right upper abdomen suggest prior cholecystectomy. Vascular calcifications are noted. IMPRESSION: 1. 30% anterior endplate compression deformity of L1 is age indeterminate, however is new from most recent comparison study 11/23/2013. There is approximately 5 mm retropulsion noted. 2. Remote compression deformity of L4. 3. Moderately demineralized bones. 4. Levoscoliosis. The above report was generated using voice recognition software. It may contain grammatical, syntax or spelling errors. Electronically signed by: Kevin Gordillo M.D. 02/24/2017 6:44 PM Dictated Date/Time: 02/24/2017 6:40 PM
[2017-02-24] MEDS ORDERED: CEFTRIAXONE SOD INJ 1 GM ADDVIAL IV STA (18:53)
[2017-02-24] MEDS ORDERED: SODIUM CHLORIDE 0.9% 500ML 500 ML IV STA ×2 (19:28→20:48)
[2017-02-24] MEDS ORDERED: ONDANSETRON INJ 2 MG/ML 2 ML VIAL IV PRN (20:45)
[2017-02-24] MEDS ORDERED: ACETAMINOPHEN 325 MG TAB PO PRN (20:45)
[2017-02-24] MEDS ORDERED: METOPROLOL TARTRATE 25 MG TAB PO STA (20:48)
[2017-02-24] MEDS ORDERED: METOPROLOL TARTRATE 50 MG TAB ONE (20:53)
[2017-02-24] MEDS ORDERED: HEPARIN SOD 5000 UNIT/0.5 ML CARP SQ SCH (21:00)
[2017-02-24] MEDS ORDERED: METOPROLOL TARTRATE 1 MG/ML VIAL ONE (21:00)
[2017-02-24] MEDS ORDERED: METOPROLOL TARTRATE 1 MG/ML VIAL IV STA ×3 (21:00→22:34)
--- NOTE | 2017-02-24 21:21 | History and Physical ---
History & Physical Date & Time of Service: Feb 24, 2017 at 21:21 Chief Complaint: Improper Taking Of Medicines, Electrolytes Primary Care Physician: Geraldo Rick M.D. History of Present Illness Source: patient, clinic records, hospital records Mrs Santana is an 89 year old female who presented to the ER with her son due to her son's concerns of confusion and not taking her medications correctly. 4 weeks previously she had multiple teeth removed for dentures but since then has not been eating well and only managing soft foods. She has been getting progressively worse and today he noticed she has been mixing up her medications (took double dose of gabapentin and didn't take her lisinopril). The patient notes her son came round to take her to her dentist appointment but instead brought her to the ER. She is disorientated to time, place and person. She does not remember her year of , she knows she is in hospital but not which one or where, she intially called her son by her brothers name but then corrected herself. 3 weeks ago she also fell, did not seek medical attention. She has chronic back pain which initially did increase after that fall but is now back to her baseline. She denies any pain/numbness radiating down her legs, leg weakness or abhinav-anal numbness. While in the ER on telemetry she converted from NSR to atrial fibrillation with RVR. She denies any chest pain, palpitations, diaphoresis, nausea, vomiting, dizziness or shortness of breath. 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 Family History Omitted secondary to age Social History Smoking Status: Never Smoker Smokeless Tobacco Use: No Alcohol Use: none Drug Use: none Marital Status: single Housing status: jail Occupational Status: retired Immunizations History of Influenza Vaccine: Yes Influenza Vaccine Date: Dec 13, 2010 History of Tetanus Vaccine?: Unknown History of Pneumococcal: Yes Pneumococcal Date: Dec 13, 2010 History of Hepatitis B Vaccine: Unknown Multi-Drug Resistant Organisms History of MDRO: No Allergies Coded Allergies: Penicillins (Verified Allergy, Intermediate, RXN = RASH, NO SOB, NO EDEMA PER PATIENT REPORT, 02/24/17) Sulfa Antibiotics (Verified Allergy, Intermediate, RXN = RASH, NO SOB, NO EDEMA PER PATIENT REPORT, 02/24/17) Erythromycin (Verified Allergy, Mild, unknown, 02/24/17) Lidocaine (Verified Allergy, Mild, 02/24/17) Tetracyclines (Verified Allergy, Mild, 02/24/17) Zinc (Verified Allergy, Mild, MADE JAW SORE WITH PASTE FOR DENTURES, 02/24) Morphine (Verified Adverse Reaction, Unknown, SENSITIVE TO MEDICATION, ) Home Medications Scheduled Ascorbic Acid (Vitamin C), 1 TAB PO DAILY Aspirin Enteric Coated (Ecotrin Or Generic *), 81 MG PO DAILY Atorvastatin (Lipitor), 10 MG PO DAILY Calcium Carbonate-Vitamin D (Calcium), 1 TAB PO DAILY Clindamycin Hcl (Cleocin), 300 MG PO UD Furosemide (Lasix), 40 MG PO DAILY Gabapentin (Neurontin), 300 MG PO HS Ibuprofen (Advil), 200 MG PO PRN Levothyroxine (Synthroid *), 0.075 MG PO DAILY Lisinopril (Zestril), 40 MG PO DAILY Memantine Hcl (Namenda Xr), 14 MG PO DAILY Metoprolol Succinate (Toprol Xl), 25 MG PO DAILY Mirtazapine (Mirtazapine), 15 MG PO HS Multivitamin (Multivitamin), 1 TABLET PO DAILY Omeprazole (Prilosec), 40 MG PO DAILY Potassium Chloride (Micro-K Ext Rel), 10 MEQ PO DAILY Review of Systems Constitutional: No fever, No chills Eyes: No worsening of vision ENT: No hearing loss, No unusual epistaxis, No nasal symptoms, No sore throat, No trouble swallowing Respiratory: No cough, No sputum, No wheezing, No shortness of breath, No dyspnea on exertion, No dyspnea at rest, No hemoptysis Cardiovascular: No chest pain, No orthopnea, No edema, No claudication, No palpitations Abdomen: No pain, No nausea, No vomiting, No diarrhea, No constipation, No GI bleeding Genitourinary - Female: No dysuria, No urinary frequency, No urinary urgency, No urinary incontinence, No urinary retention, No hematuria Neurologic: No memory loss (denied by patient), No numbness/tingling, No vertigo, No balance problems Endocrine: No fatigue Hematologic / Lymphatic: No abnormal bleeding/bruising Integumentary: No rash, No itch Physical Exam Vital Signs Date Time Temp Pulse Resp B/P (MAP) Pulse Ox O2 Delivery O2 Flow Rate FiO2 02/24/17 21:02 155 111/79 02/24/17 20:49 133 02/24/17 20:40 96 16 155/86 98 Room Air 02/24/17 19:21 78 15 153/67 98 Room Air 02/24/17 17:35 88 158/108 95 Room Air 02/24/17 16:25 86 28 02/24/17 16:20 169/97 02/24/17 16:19 165/89 02/24/17 16:17 92 165/89 80 169/97 02/24/17 16:10 72 02/24/17 16:10 94 Room Air 02/24/17 15:34 36.9 75 20 122/73 96 Room Air General Appearance: WD/WN, no apparent distress Head: normocephalic, atraumatic Eyes: normal inspection, PERRL, EOMI ENT: normal ENT inspection (external), pharynx normal Neck: supple, no JVD Respiratory/Chest: chest non-tender, lungs clear, normal breath sounds, no respiratory distress, no accessory muscle use Cardiovascular: no murmur, normal peripheral pulses, + tachycardia, + irregularly irregular Abdomen/GI: normal bowel sounds, non tender, soft Extremities/Musculoskelatal: normal capillary refill, + calf tenderness ( chronic longstanding, previous dopplers negative for DVT), + pedal edema (1+ @ ankles b/l) Neurologic/Psych: hematology nurse educator II-XII nml as tested (no facial droop), no motor/sensory deficits (grossly), alert, + disoriented (as per HPI) Skin: normal color, warm/dry, no rash Diagnostics Laboratory Results Results Past 24 Hours Test 02/24/17 16:24 02/24/17 16:30 Range/Units White Blood Count 6.80 4.8-10.8 K/uL Red Blood Count 3.94 4.2-5.4 M/uL Hemoglobin 12.9 12.0-16.0 g/dL Hematocrit 36.5 37-47 % Mean Corpuscular Volume 92.6 80-100 fL Mean Corpuscular Hemoglobin 32.7 25-34 pg Mean Corpuscular Hemoglobin Concent 35.3 32-36 g/dl Platelet Count 192 130-400 K/uL Mean Platelet Volume 9.4 7.4-10.4 fL Neutrophils (%) (Auto) 73.8 % Lymphocytes (%) (Auto) 12.1 % Monocytes (%) (Auto) 13.5 % Eosinophils (%) (Auto) 0.3 % Basophils (%) (Auto) 0.0 % Neutrophils # (Auto) 5.02 1.4-6.5 K/uL Lymphocytes # (Auto) 0.82 1.2-3.4 K/uL Monocytes # (Auto) 0.92 0.11-0.59 K/uL Eosinophils # (Auto) 0.02 0-0.5 K/uL Basophils # (Auto) 0.00 0-0.2 K/uL RDW Standard Deviation 43.7 36.4-46.3 fL RDW Coefficient of Variation 12.9 11.5-14.5 % Immature Granulocyte % (Auto) 0.3 % Immature Granulocyte # (Auto) 0.02 0.00-0.02 K/uL Prothrombin Time 11.3 9.0-12.0 SECONDS Prothromb Time International Ratio 1.1 0.9-1.1 Activated Partial Thromboplast Time 31.8 21.0-31.0 SECONDS Partial Thromboplastin Ratio 1.2 Sodium Level 127 136-145 mmol/L Potassium Level 3.7 3.5-5.1 mmol/L Chloride Level 89 98-107 mmol/L Carbon Dioxide Level 29 21-32 mmol/L Anion Gap 9.0 3-11 mmol/L Blood Urea Nitrogen 18 7-18 mg/dl Creatinine 1.28 0.60-1.20 mg/dl Estimated GFR () 42.9 Estimated GFR (Non- 37.0 BUN/Creatinine Ratio 13.9 10-20 Random Glucose 109 70-99 mg/dl Calcium Level 9.6 8.5-10.1 mg/dl Phosphorus Level 2.5 2.5-4.9 mg/dl Magnesium Level 2.5 1.8-2.4 mg/dl Total Bilirubin 0.5 0.2-1 mg/dl Direct Bilirubin 0.2 0-0.2 mg/dl Aspartate Amino Transf (AST/SGOT) 27 15-37 U/L Alanine Aminotransferase (ALT/SGPT) 25 12-78 U/L Alkaline Phosphatase 133 45-117 U/L Total Creatine Kinase 37 26-192 U/L Creatine Kinase MB 1.6 0.5-3.6 ng/ml Creatine Kinase MB Ratio 4.3 0-3.0 Troponin I < 0.015 0-0.045 ng/ml Pro-B-Type Natriuretic Peptide 793 0-1800 pg/ml Total Protein 7.9 6.4-8.2 gm/dl Albumin 3.8 3.4-5.0 gm/dl Lipase 290 73-393 U/L Thyroid Stimulating Hormone (TSH) 3.010 0.300-4.500 uIu/ml Urine Color YELLOW Urine Appearance CLEAR CLEAR Urine pH 6.0 4.5-7.5 Urine Specific [place] 1.015 1.000-1.030 Urine Protein NEG NEG Urine Glucose (UA) NEG NEG Urine Ketones NEG NEG Urine Occult Blood NEG NEG Urine Nitrite NEG NEG Urine Bilirubin NEG NEG Urine Urobilinogen NEG NEG Urine Leukocyte Esterase MODERATE NEG Urine WBC (Auto) 5-10 0-5 /hpf Urine RBC (Auto) 0-4 0-4 /hpf Urine Hyaline Casts (Auto) 1-5 0-5 /lpf Urine Epithelial Cells (Auto) 10-20 0-5 /lpf Urine Bacteria (Auto) 2+ NEG Microbiology Results 02/24/17 Urine Culture, Received Pending Diagnostic Radiology HEAD WITHOUT CONTRAST (CT) CLINICAL HISTORY: 89 years-old Female with EVALUATE ALTERED MENTAL STATUS/WEAKNESS. Acute altered mental status with weakness TECHNIQUE: Multiple axial CT images of the head were obtained without contrast. A dose lowering technique was utilized adhering to the principles of ALARA. CT DOSE: 750.83 mGy.cm COMPARISON: MRI brain 01/25/2015. FINDINGS: Exam is mildly motion degraded. No midline shift, mass, territorial ischemia or abnormal extra-axial collection. Focal 7 x 4 mm area of cortically based increased attenuation of the right temporal lobe on image 13 series 2 correlates with lesion seen on comparison brain MR 01/25/2015. No acute intracranial hemorrhage identified. Moderate atrophy. Chronic microvascular ischemic changes redemonstrated. The calvarium is intact. The paranasal sinuses, mastoid air cells, and middle ear cavities are clear. IMPRESSION: 1. No acute intracranial abnormality identified. 2. Focal 7 x 4 mm area of cortically based increased attenuation of the right temporal lobe as above correlates with lesion seen on comparison brain MRI 01/25/2015 suggesting a cerebral cavernous venous malformation. 3. Atrophy with chronic microvascular ischemic changes. The above report was generated using voice recognition software. It may contain grammatical, syntax or spelling errors. Electronically signed by: Kevin Gordillo M.D. 02/24/2017 5:32 PM Dictated Date/Time: 02/24/2017 5:28 PM L-SPINE MIN 4 VIEWS ROUTINE HISTORY: 89 years-old Female BACK/CHEST PAIN acute back and chest pain without reported trauma COMPARISON: Lumbar spine radiographs 02/25/2013, CT 11/23/2013 TECHNIQUE: 5 radiographic views of the lumbar spine. FINDINGS: 5 lumbar type vertebral segments are present. There is approximately 16 degrees levoscoliosis of the lumbar spine measured from L2-L5. Moderate degenerative changes of the bilateral hips with severe multilevel intervertebral disc space narrowing, endplate spurring and facet arthropathy. Evaluation for acute nondisplaced fracture is limited secondary to moderate bone demineralization and patient positioning. Remote compression deformity at L4. There is 30% anterior endplate compression deformity of L1 with 5 mm retropulsion which is new from most recent comparison CT 11/23/2013. Surgical clips of the right upper abdomen suggest prior cholecystectomy. Vascular calcifications are noted. IMPRESSION: 1. 30% anterior endplate compression deformity of L1 is age indeterminate, however is new from most recent comparison study 11/23/2013. There is approximately 5 mm retropulsion noted. 2. Remote compression deformity of L4. 3. Moderately demineralized bones. 4. Levoscoliosis. The above report was generated using voice recognition software. It may contain grammatical, syntax or spelling errors. Electronically signed by: Kevin Gordillo M.D. 02/24/2017 6:44 PM Dictated Date/Time: 02/24/2017 6:40 PM CHEST 2 VIEWS ROUTINE HISTORY: 89 years-old Female BACK/CHEST PAIN acute atypical chest pain COMPARISON: Chest radiographs 04/20/2016 TECHNIQUE: Upright AP and lateral views of the chest FINDINGS: Cardiac silhouette is moderately enlarged, unchanged. There is atherosclerosis of the aorta. Prior median sternotomy with prosthetic cardiac valve. There is no pneumothorax or pleural effusion. Pulmonary hyperinflation is redemonstrated. Minimal left basilar opacity is again seen suggesting atelectasis. The bones are mildly demineralized. The level endplate changes are seen throughout the spine. Surgical clips of the upper abdomen suggest prior cholecystectomy. IMPRESSION: 1. No acute cardiopulmonary process. 2. Cardiomegaly without pulmonary edema. 3. Hyperinflation. The above report was generated using voice recognition software. It may contain grammatical, syntax or spelling errors. Electronically signed by: Kevin Gordillo M.D. 02/24/2017 6:40 PM Dictated Date/Time: 02/24/2017 6:38 PM EKG 24/02/17 16:07 Sinus rhythm with Premature supraventricular complexes. Rate [address] & T wave abnormality, consider inferolateral ischemia When compared with ECG of 20-APR-2016 08:59, No significant change other than PVCs 24/02/17 20:46 Atrial fibrillation with rapid ventricular response. Rate [address] abnormality, possible inferolateral subendocardial injury Abnormal ECG When compared with ECG of 24-FEB-2017 16:07, Atrial fibrillation has replaced Sinus rhythm ST more depressed Anterolateral leads T wave inversion more evident in Lateral leads Impression Assessment and Plan 89 year old female presents with confusion suspect secondary to hyponatremia, dehydration +/- UTI Paroxysmal Atrial fibrillation with RVR - Metoprolol 5mg IV x3 given which slowed her down enough to go back in to NSR overnight. - Metoprolol XL 25 mg PO daily (her home dose) also given - IVF to maintain BP - heparin low dose without bolus - echocardiogram tomorrow Confusion - suspect secondary to malnutrition, dehydration, possible UTI, possibly going in and out of a fib at home. - Boost drinks - Continue IVF Orthostatic hypotension - secondary to IV metoprolol given, monitor once stable - hold parameters on metoprolol and lisinopril Possible UTI - treated with ceftriaxone in the ER. Patient denies urinary symptoms although given confusion will get urine culture and treat with ceftriaxone for 3 days. GERD - continue pantoprazole Hypothyroidism - Continue levothyroxine Dementia - continue memantine Attending Addendum: I have physically seen and examined this patient, have directed the resident's medical activities, and agree with the H&P as noted above with the following exceptions as noted. HEENT--PERRL, EOMI, mucous membranes and oropharynx dry. Neck--supple, no JVD or bruits, thyroid normal, trachea midline, no adenopathy. Heart--normal S1 and S2, no extra beats, no murmurs, rubs or gallops. Lungs--few crackles at the bases bilaterally, no respiratory distress, no accessory muscle use. Abdomen--normal bowel sounds and soft, nontender and nondistended, no hernias or masses, no organomegaly. Extremities--no cyanosis, clubbing or edema. There are good distal pulses b/l. Dermatologic--normal skin turgor, normal color, warm and dry, no abnormal lymph nodes, no rash. Neurologic--cranial nerves II through XII grossly intact. Rheumatologic--normal range of motion. Psychiatric--normal affect. Assessment and Plan: Paroxysmal atrial fibrillation with RVR/rate dependent ischemia in anterolateral chest leads, improved with rate control/-- The patient will be admitted to telemetry for serial cardiac enzymes, cardiac rhythm monitoring and a 2-D echocardiogram with Dopplers. Converted while in the ED during my examination to normal sinus rhythm after being given Lopressor 5 mg IV 3. Continue metoprolol XL 25 mg by mouth daily. IV fluids for rehydration. Heparin low dose without bolus. Confusion, multifactorial-- Stabilize atrial fibrillation as above. Improve nutrition, begin with boost nutritional shakes while in the hospital. Continue IV fluids to correct dehydration Continue Namenda for underlying dementia, which may be temporarily worsened by the above. Control pain from probable acute/subacute L1 compression fracture. Chronic hyponatremia likely secondary to Lasix, correct by holding Lasix and administer IV fluids as noted above. Level of Care Telemetry Advanced Directives Existing Advance Directive: Yes Existing Living Will: Yes Existing Power of Multineedle Shirrer: Yes Resuscitation Status DO NOT RESUSCITATE VTE Prophylaxis VTE Risk Assessment Done? Y/N: Yes Risk Level: Moderate Given or contraindicated: Other Anticoagulation (heparin IV) Additional Copies To Geraldo Rick M.D. Resident Tracking Resident Involvement: Resident Care Provided Care Provided: Adult Hospital Medicine
[2017-02-24] MEDS ORDERED: POTASSIUM CHLORIDE 10 MEQ TABCR PO STA (21:30)
[2017-02-24] MEDS ORDERED: HEPARIN 25000 UNIT/500 ML D5W ONE (21:32)
[2017-02-24] MEDS ORDERED: HEPARIN IV LOW DOSE NO BOLUS SCH (21:33)
[2017-02-24] MEDS ORDERED: POTASSIUM CHLORIDE 10 MEQ TABCR ONE (21:33)
[2017-02-24 22:17] VITALS: BP 117/76; PULSE 124; TEMP 36.7; O2SAT 95; Ht 152.4 cm; Wt 67.4 kg
[2017-02-24] MEDS ORDERED: HEPARIN 25,000 UNIT/500ML D5W 500 ML IV PRN (22:30)
[2017-02-24] MEDS: SODIUM CHLORIDE 0.9% 1000ML 1,000 ML IV SCH (23:26)
[2017-02-24 23:59] VITALS: O2SAT 95
[2017-02-25] VITALS (8 sets, daily range): BP systolic 85–127; BP diastolic 46–112; PULSE 64–123; TEMP 36.7–37; O2SAT 85–97
[2017-02-25] MEDS: GABAPENTIN 300 MG CAP PO SCH ×2 (00:03→19:26)
[2017-02-25] MEDS: MIRTAZAPINE TAB 15 MG TAB PO SCH ×2 (00:03→19:26)
[2017-02-25 03:33] LABS: BASO % 0.2 %; BASO ABS # 0.01 K/uL (0-0.2); COMPLETE YES; EOS % 0.7 %; HEMATOCRIT 32.1 % (37-47); IG% 0.2 %; LYMPH % 14.6 %; LYMPH ABS # 0.81 K/uL (1.2-3.4); MEAN CELL VOLUME 92.8 fL (80-100); MEAN CORPUSCULAR HEMOGLOBIN 32.1 pg (25-34); MEAN CORPUSCULAR HGB CONC 34.6 g/dl (32-36); MEAN PLATELET VOLUME 9.2 fL (7.4-10.4); MONO % 11.7 %; NEUT % 72.6 %; PLATELET COUNT 178 K/uL (130-400); RED BLOOD COUNT 3.46 M/uL (4.2-5.4); WHITE BLOOD COUNT 5.55 K/uL (4.8-10.8)
[2017-02-25 03:52] LABS: BUN/CREATININE RATIO 14.6 (10-20); CALCIUM 8.3 mg/dl (8.5-10.1); CREATININE 0.93 mg/dl (0.60-1.20); POTASSIUM 3.2 mmol/L (3.5-5.1)
[2017-02-25 03:55] LABS: PARTIAL THROMBOPLASTIN RATIO 2.9
[2017-02-25] MEDS ORDERED: SODIUM CHLORIDE 0.9% 500ML 500 ML IV STA (04:42)
[2017-02-25] MEDS: LEVOTHYROXINE 75 MCG TAB PO SCH (05:30)
[2017-02-25] MEDS ORDERED: POTASSIUM CHLORIDE 20 MEQ TABCR PO ONE (06:00)
--- NOTE | 2017-02-25 08:47 | Clinical Documentation Query ---
KWAN Carreno : CLINICAL DOCUMENTATION QUERY Patient is an 89 year old female admitted for evaluation of confusion in the setting of hyponatremia, dehydration, malnutrition (unspecified), and possible UTI. She is being treated with IVF, Boost dietary supplements, urine C&S, IV Rocephin. Weight of 62 Kg per EMR. Last noted weight per EMR of 71 Kg 04/30. Noted to be "not eating well", "getting progressively worse" which culminated in incorrect administration of medications and disorientation. As appropriate, consider documentation as suggested below. Thank you. In your clinical opinion is this patient being managed for: (x ) Metabolic encephalopathy secondary to severe protein calorie malnutrition with associated dehydration, hyponatremia ( ) Not Agree ( ) Other explanation of clinical findings (Please Explain) ( ) Unable to determine (Please Define) ( ) Need to Discuss The medical record reflects the following clinical findings, treatment, and risk factors. Clinical Indicators: As above Treatment:She is being treated with IVF, Boost dietary supplements, urine C&S, IV Rocephin Risk Factors: Age, infection, Lasix, hyponatremia, recent extraction of all teeth, difficulty chewing/swallowing, weight loss of greater than 10% in past 6 months Please clarify and document your clinical opinion in the progress notes and discharge summary. Terms such as "probable", "suspected", "likely", "questionable", "possible", or "still to be ruled out" are acceptable. IF IN AGREEMENT, YOU MUST DOCUMENT ABOVE DIAGNOSTIC STATEMENT IN DAILY PROGRESS NOTES AND DISCHARGE SUMMARY. This document is not part of the patient's record. Thank You, Valdez Ortega, KALI [phone]
[2017-02-25] MEDS ORDERED: POTASSIUM CHLORIDE 10 MEQ TABCR PO SCH (09:00)
[2017-02-25] MEDS: POTASSIUM CHLORIDE 20 MEQ TABCR PO SCH (09:13)
[2017-02-25] MEDS: METOPROLOL SUCC 25MG EXT REL TAB PO SCH (09:14)
[2017-02-25] MEDS: MEMANTINE 10 MG TAB PO SCH (09:14)
[2017-02-25] MEDS: CALCIUM 600MG + VIT D 400 IU TAB PO SCH (09:14)
[2017-02-25] MEDS: ASCORBIC ACID 500 MG TAB PO SCH (09:14)
[2017-02-25] MEDS: MULTIVITAMIN TAB PO SCH (09:15)
[2017-02-25] MEDS: PANTOprazole SOD 40 MG TAB PO SCH (09:15)
[2017-02-25] MEDS: ASPIRIN 81 MG ECTAB PO SCH (09:15)
[2017-02-25] MEDS: ATORVASTATIN 10 MG TAB PO SCH (09:15)
[2017-02-25] MEDS: LISINOPRIL 40 MG TAB PO SCH (09:16)
[2017-02-25] MEDS: SODIUM CHLORIDE 0.9% 1000ML 1,000 ML IV SCH ×2 (09:16→16:37)
[2017-02-25] MEDS: BOOST VANILLA PO SCH ×4 (09:19→19:26)
[2017-02-25 10:51] LABS: PARTIAL THROMBOPLASTIN RATIO 3.3
--- NOTE | 2017-02-25 12:41 | ECHOCARDIOGRAM REPORT ---
*NOTICE TO RECEIVING LIBERTARIAN AGENCY This information is strictly Confidential and protected under [place] law. [place] law prohibits you from making any further disclosure of this information unless further disclosure is expressly permitted by the written consent of the person to whom it pertains or is authorized by law. A general authorization for the release of medical or other information is not sufficient for this purpose. Hospital accepts no responsibility if the information is made available to any other person, INCLUDING THE PATIENT. Interpretation Summary * Name: FRENCH BEE Study Date: 02/25/2017 06:58 AM BP: 106/52 mmHg * Patient Location: .2E\S\E208\S\1 HR: 66 * : 1925 (M/d/yyyy) Gender: Female Height: 62 in * Age: 89 yrs Ethnicity: CA Weight: 136 lb * Ordering Physician: Dickson Lozada * Referring Physician: Self, Referred * Performed By: Daily Watkins RDCS * * Reason For Study: AFIB * BSA: 1.6 m2 * -- Conclusions -- * There is mild concentric left ventricular hypertrophy. * Left ventricular systolic function is normal. * Grade I diastolic dysfunction, (abnormal relaxation pattern). * The right ventricle is mild to moderately dilated. * The right ventricular systolic function is mildly reduced. * The right atrium is moderate to severely dilated. * There is a bioprosthetic aortic valve. * There is severe tricuspid regurgitation. * There is mild mitral regurgitation. * Right ventricular systolic pressure is normal. * Compared to an echocardiogram obtained in April 2016, the transaortic gradient appears to be stable. Does appear to be worsening of the tricuspid regurgitation and dilation of the right atrium. Procedure Details * A contrast injection of Definity was performed to improve assessment of LV function. * Contrast was injected into an intravenous site in the left arm. * One vial of Definity ultrasound contrast was diluted in normal saline to a total volume of 10 ml. A total of '2' ml of solution was administered during imaging. * Lot # [id number] of Definity utilized for procedure. * Expiration date MAR 31. * The attending nurse who injected the contrast agent was TIGIST SUERO RN. Left Ventricle * The left ventricle is normal in size. * There is mild concentric left ventricular hypertrophy. * Ejection Fraction = 65-70%. * Left ventricular systolic function is normal. * Grade I diastolic dysfunction, (abnormal relaxation pattern). * The left ventricular wall motion is normal. Right Ventricle * The right ventricle is mild to moderately dilated. * The right ventricular systolic function is mildly reduced. * The right ventricular systolic function is reduced as assessed by tricuspid annular plane systolic excursion (TAPSE) (TAPSE <1.6 cm). Atria * The left atrial size is normal. * The right atrium is moderate to severely dilated. Mitral Valve * The mitral valve anatomy is normal. * There is mild mitral regurgitation. Tricuspid Valve * The tricuspid valve is not well visualized, but is grossly normal. * There is severe tricuspid regurgitation. * Right ventricular systolic pressure is normal. Aortic Valve * There is no significant aortic regurgitation. * There is a bioprosthetic aortic valve. * The gradient is normal for this prosthetic aortic valve. Pericardium/Pleural * There is no pericardial effusion. MMode 2D Measurements and Calculations IVSd 1.4 cm IVSs 1.7 cm LVIDd 3.6 cm LVIDs 2.3 cm LVPWd 1.4 cm LVPWs 1.5 cm IVS/LVPW 10 FS 35.9 % EDV(Teich) 55.3 ml ESV(Teich) 18.5 ml EF(Teich) 66.5 % EDV(cubed) 47.5 ml ESV(cubed) 12.5 ml EF(cubed) 73.7 % % IVS thick 24.8 % % LVPW thick 7.0 % LV mass(C)d 173.4 grams LV mass(C)dI 106.9 grams/m\S\2 LV mass(C)s 126.7 grams LV mass(C)sI 78.1 grams/m\S\2 SV(Teich) 36.7 ml SI(Teich) 22.6 ml/m\S\2 SV(cubed) 35.0 ml SI(cubed) 21.6 ml/m\S\2 LA dimension 3.3 cm LVOT diam 2.0 cm LVOT area 3.0 cm\S\2 LVAd ap4 19.9 cm\S\2 LVLd ap4 6.9 cm EDV(MOD-sp4) 46.2 ml EDV(sp4-el) 48.6 ml LVAs ap4 11.0 cm\S\2 LVLs ap4 5.9 cm ESV(MOD-sp4) 17.6 ml ESV(sp4-el) 17.2 ml EF(MOD-sp4) 62.0 % EF(sp4-el) 64.5 % LVAd ap2 17.0 cm\S\2 LVLd ap2 6.6 cm EDV(MOD-sp2) 35.8 ml EDV(sp2-el) 37.2 ml LVAs ap2 9.1 cm\S\2 LVLs ap2 5.4 cm ESV(MOD-sp2) 12.5 ml ESV(sp2-el) 12.9 ml EF(MOD-sp2) 65.0 % EF(sp2-el) 65.3 % LVLd %diff -4.85 % EDV(MOD-bp) 42.1 ml LVLs %diff -9.21 % ESV(MOD-bp) 15.2 ml EF(MOD-bp) 63.9 % SV(MOD-sp4) 28.6 ml SI(MOD-sp4) 17.7 ml/m\S\2 SV(MOD-sp2) 23.3 ml SI(MOD-sp2) 14.3 ml/m\S\2 SV(MOD-bp) 26.9 ml SI(MOD-bp) 16.6 ml/m\S\2 SV(sp4-el) 31.3 ml SI(sp4-el) 19.3 ml/m\S\2 SV(sp2-el) 24.3 ml SI(sp2-el) 15.0 ml/m\S\2 Doppler Measurements and Calculations MV E max catie 82.5 cm/sec MV A max catie 63.1 cm/sec MV E/A 1.3 MV dec time 0.25 sec Ao V2 max 188.9 cm/sec Ao max PG 14.3 mmHg Ao max PG (full) 10.3 mmHg Ao V2 mean 113.3 cm/sec Ao mean PG 6.1 mmHg Ao mean PG (full) 4.1 mmHg Ao V2 VTI 40.7 cm MYRON(I,A) 1.9 cm\S\2 MYRON(I,D) 1.9 cm\S\2 MYRON(V,A) 1.6 cm\S\2 MYRON(V,D) 1.6 cm\S\2 LV V1 max PG 4.0 mmHg LV V1 mean PG 1.9 mmHg LV V1 max 99.4 cm/sec LV V1 mean 65.3 cm/sec LV V1 VTI 25.5 cm SV(LVOT) 76.4 ml SI(LVOT) 47.1 ml/m\S\2 TR max catie 242.2 cm/sec
[2017-02-25] MEDS: IBUPROFEN 200 MG TAB PO PRN (13:27)
--- NOTE | 2017-02-25 15:14 | Progress Note ---
Subjective Date of Service: Feb 25, 2017. Subjective Pt evaluation today including: conversation w/ patient, conversation w/ family (son), physical exam, lab review, review of studies, review of inpatient medication list Pain: diffuse arthritic pain, chronic PO Intake: improved Voiding: no voiding problems patient resting in bed, says she feels well c/o some arthritis pain which is chronic, requests ibuprofen long talk with patient's son at the bedside regarding her presentation had teeth pulled 4 weeks ago, fitted for dentures over the past few weeks, PO intake has been poor, patient getting weaker over the past weekend son noticed increased confusion last night patient was very confused, son brought her to the ED he reports that she is much better today, not quite at baseline but improved from yesterday eating better he and his discovered that patient was doubling up her Gabapentin dose by accident, unsure of how long she was doing that reviewed lab work, Cr stable, K 3.2, Na up to 133, CBC stable urine culture, pinpoint growth Problem List Medical Problems: (1) CHF (congestive heart failure) Status: Acute (2) Clostridium difficile diarrhea Status: Acute (3) Fall Status: Acute (4) Hypertensive emergency Status: Acute (5) Hyponatremia Status: Acute (6) Lumbar compression fracture Status: Acute (7) UTI (urinary tract infection) Status: Acute (8) UTI (urinary tract infection) Status: Acute (9) Weakness Status: Acute Review of Systems Constitutional: + weakness, + fatigue Neurologic: + memory loss, + weakness All Other Systems: Reviewed and Negative Medications Current Inpatient Medications Medications (Trade) Dose Ordered Sig/Sapphire Route Start Time Stop Time Status Last Admin Dose Admin Sodium Chloride 1,000 ml @ 100 mls/hr Q10H IV 02/24/17 20:45 03/26/17 20:44 02/25/17 09:16 100 MLS/HR Acetaminophen (Tylenol Tab) 650 mg Q4H PRN PO 02/24/17 20:45 03/26/17 20:44 Ondansetron HCl (Zofran Inj) 4 mg Q6H PRN IV 02/24/17 20:45 03/26/17 20:44 Ascorbic Acid (Vitamin C Tab) 500 mg DAILY PO 02/25/17 09:00 03/27/17 08:59 02/25/17 09:14 500 MG Aspirin (Ecotrin Tab) 81 mg DAILY PO 02/25/17 09:00 03/27/17 08:59 02/25/17 09:15 81 MG Atorvastatin Calcium (Lipitor Tab) 10 mg DAILY PO 02/25/17 09:00 03/27/17 08:59 02/25/17 09:15 10 MG Gabapentin (Neurontin Cap) 300 mg HS PO 02/24/17 21:00 03/26/17 20:59 02/25/17 00:03 300 MG Levothyroxine Sodium (Synthroid Tab) 75 mcg DAILYBB PO 02/25/17 06:00 03/27/17 06:59 02/25/17 05:30 75 MCG Lisinopril (Zestril Tab) 40 mg DAILY PO 02/25/17 09:00 03/27/17 08:59 02/25/17 09:16 40 MG Metoprolol Succinate (Toprol Xl Tab) 25 mg DAILY PO 02/25/17 09:00 03/27/17 08:59 02/25/17 09:14 25 MG Mirtazapine (Remeron Tab) 15 mg HS PO 02/24/17 21:00 03/26/17 20:59 02/25/17 00:03 15 MG Multivitamins (Multivitamin Tab) 1 tab DAILY PO 02/25/17 09:00 03/27/17 08:59 02/25/17 09:15 1 TAB Calcium/Vitamin D (Caltrate Plus Tab) 1 tab DAILY PO 02/25/17 09:00 03/27/17 08:59 02/25/17 09:14 1 TAB Memantine (Namenda Tab) 10 mg QAM PO 02/25/17 09:00 03/27/17 08:59 02/25/17 09:14 10 MG Pantoprazole Sodium (Protonix Tab) 40 mg QAM PO 02/25/17 09:00 03/27/17 08:59 02/25/17 09:15 40 MG Heparin Sodium/ Dextrose 500 ml @ 10 mls/hr Q24H PRN IV 02/24/17 22:30 03/26/17 22:29 02/25/17 04:11 12 MLS/HR Ceftriaxone Sodium 1 gm/ Dextrose 50 ml @ 100 mls/hr Q24H IV 02/25/17 19:00 02/28/17 19:29 Enteral Nutritional Formula (Boost) 1 can BID PO 02/25/17 09:00 03/27/17 08:59 02/25/17 09:19 1 CAN Potassium Chloride (Klor-Con Tab) 40 meq DAILY PO 02/25/17 09:00 03/27/17 08:59 02/25/17 09:13 40 MEQ Ibuprofen (Advil Tab) 400 mg TID PRN PO 02/25/17 12:15 03/27/17 12:14 02/25/17 13:27 400 MG Objective Vital Signs Date Time Temp Pulse Resp B/P (MAP) Pulse Ox O2 Delivery O2 Flow Rate FiO2 02/25/17 12:50 69 20 110/62 (78) 85 Room Air 118/70 (86) 119/50 (73) 02/25/17 12:00 Room Air 02/25/17 11:32 37.0 64 18 103/51 (68) 97 Room Air 02/25/17 08:00 Room Air 02/25/17 07:43 36.7 66 18 106/52 (70) 95 Room Air 02/25/17 04:19 37.0 65 18 91/51 (64) 94 Room Air 02/25/17 04:00 95 Room Air 02/25/17 00:13 36.8 97 20 123/112 (116) 96 Room Air 112 85/69 (74) 123 88/46 (60) 02/24/17 23:59 95 Room Air 02/24/17 23:26 105 02/24/17 22:17 36.7 124 20 117/76 95 Room Air 02/24/17 21:41 130 114/79 97 Room Air 02/24/17 21:38 137 114/79 02/24/17 21:25 123 15 114/79 96 02/24/17 21:02 155 111/79 02/24/17 20:49 133 02/24/17 20:40 96 16 155/86 98 Room Air 02/24/17 19:21 78 15 153/67 98 Room Air 02/24/17 17:35 88 158/108 95 Room Air 02/24/17 16:25 86 28 02/24/17 16:20 169/97 02/24/17 16:19 165/89 02/24/17 16:17 92 165/89 80 169/97 02/24/17 16:10 72 02/24/17 16:10 94 Room Air 02/24/17 15:34 36.9 75 20 122/73 96 Room Air Physical Exam General Appearance: WD/WN, no apparent distress Eyes: normal inspection, EOMI, sclerae normal ENT: normal ENT inspection, hearing grossly normal, pharynx normal Neck: supple, no adenopathy, no JVD, trachea midline Respiratory/Chest: chest non-tender, lungs clear, normal breath sounds, no respiratory distress, no accessory muscle use Cardiovascular: regular rate, rhythm, no edema, no gallop, no JVD, no murmur Abdomen: normal bowel sounds, non tender, soft, no organomegaly Extremities: normal range of motion, normal inspection, no pedal edema, no calf tenderness, normal capillary refill, pelvis stable, + pertinent finding ( diffuse arthritic pain and tenderness) 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, no motor/sensory deficits, alert, normal mood/affect, oriented x 3 Skin: normal color, warm/dry, no rash Laboratory Results Last 24 Hours Test 02/24/17 16:24 02/24/17 16:28 02/24/17 16:30 02/25/17 00:10 White Blood Count 6.80 K/uL Red Blood Count 3.94 M/uL Hemoglobin 12.9 g/dL Hematocrit 36.5 % Mean Corpuscular Volume 92.6 fL Mean Corpuscular Hemoglobin 32.7 pg Mean Corpuscular Hemoglobin Concent 35.3 g/dl Platelet Count 192 K/uL Mean Platelet Volume 9.4 fL Neutrophils (%) (Auto) 73.8 % Lymphocytes (%) (Auto) 12.1 % Monocytes (%) (Auto) 13.5 % Eosinophils (%) (Auto) 0.3 % Basophils (%) (Auto) 0.0 % Neutrophils # (Auto) 5.02 K/uL Lymphocytes # (Auto) 0.82 K/uL Monocytes # (Auto) 0.92 K/uL Eosinophils # (Auto) 0.02 K/uL Basophils # (Auto) 0.00 K/uL RDW Standard Deviation 43.7 fL RDW Coefficient of Variation 12.9 % Immature Granulocyte % (Auto) 0.3 % Immature Granulocyte # (Auto) 0.02 K/uL Prothrombin Time 11.3 SECONDS Prothromb Time International Ratio 1.1 Activated Partial Thromboplast Time 31.8 SECONDS Partial Thromboplastin Ratio 1.2 Sodium Level 127 mmol/L Potassium Level 3.7 mmol/L Chloride Level 89 mmol/L Carbon Dioxide Level 29 mmol/L Anion Gap 9.0 mmol/L Blood Urea Nitrogen 18 mg/dl Creatinine 1.28 mg/dl Estimated GFR () 42.9 Estimated GFR (Non- 37.0 BUN/Creatinine Ratio 13.9 Random Glucose 109 mg/dl Calcium Level 9.6 mg/dl Phosphorus Level 2.5 mg/dl Magnesium Level 2.5 mg/dl Total Bilirubin 0.5 mg/dl Direct Bilirubin 0.2 mg/dl Aspartate Amino Transf (AST/SGOT) 27 U/L Alanine Aminotransferase (ALT/SGPT) 25 U/L Alkaline Phosphatase 133 U/L Total Creatine Kinase 37 U/L Creatine Kinase MB 1.6 ng/ml Creatine Kinase MB Ratio 4.3 Troponin I < 0.015 ng/ml 0.024 ng/ml Pro-B-Type Natriuretic Peptide 793 pg/ml Total Protein 7.9 gm/dl Albumin 3.8 gm/dl Lipase 290 U/L Thyroid Stimulating Hormone (TSH) 3.010 uIu/ml Bedside Glucose 108 mg/dl Urine Color YELLOW Urine Appearance CLEAR Urine pH 6.0 Urine Specific [place] 1.015 Urine Protein NEG Urine Glucose (UA) NEG Urine Ketones NEG Urine Occult Blood NEG Urine Nitrite NEG Urine Bilirubin NEG Urine Urobilinogen NEG Urine Leukocyte Esterase MODERATE Urine WBC (Auto) 5-10 /hpf Urine RBC (Auto) 0-4 /hpf Urine Hyaline Casts (Auto) 1-5 /lpf Urine Epithelial Cells (Auto) 10-20 /lpf Urine Bacteria (Auto) 2+ Test 02/25/17 03:22 02/25/17 10:03 White Blood Count 5.55 K/uL Red Blood Count 3.46 M/uL Hemoglobin 11.1 g/dL Hematocrit 32.1 % Mean Corpuscular Volume 92.8 fL Mean Corpuscular Hemoglobin 32.1 pg Mean Corpuscular Hemoglobin Concent 34.6 g/dl Platelet Count 178 K/uL Mean Platelet Volume 9.2 fL Neutrophils (%) (Auto) 72.6 % Lymphocytes (%) (Auto) 14.6 % Monocytes (%) (Auto) 11.7 % Eosinophils (%) (Auto) 0.7 % Basophils (%) (Auto) 0.2 % Neutrophils # (Auto) 4.03 K/uL Lymphocytes # (Auto) 0.81 K/uL Monocytes # (Auto) 0.65 K/uL Eosinophils # (Auto) 0.04 K/uL Basophils # (Auto) 0.01 K/uL RDW Standard Deviation 43.9 fL RDW Coefficient of Variation 13.0 % Immature Granulocyte % (Auto) 0.2 % Immature Granulocyte # (Auto) 0.01 K/uL Activated Partial Thromboplast Time 75.8 SECONDS 85.4 SECONDS Partial Thromboplastin Ratio 2.9 3.3 Sodium Level 133 mmol/L Potassium Level 3.2 mmol/L Chloride Level 96 mmol/L Carbon Dioxide Level 29 mmol/L Anion Gap 8.0 mmol/L Blood Urea Nitrogen 14 mg/dl Creatinine 0.93 mg/dl Est Creatinine Clear Calc Drug Dose 33.7 ml/min Estimated GFR () 63.2 Estimated GFR (Non- 54.5 BUN/Creatinine Ratio 14.6 Random Glucose 94 mg/dl Calcium Level 8.3 mg/dl Troponin I 0.078 ng/ml Assessment and Plan 89 year old female presents with confusion suspect secondary to hyponatremia, dehydration +/- UTI - Toxic encephalopathy secondary to increased dose of Gabapentin (unintentional ) in addition to dehydration, hyponatremia and possible UTI patient improved over past 24 hours with fluids Na improved to 133 continue Rocephin for possible UTI replace potassium continue Gabapentin at correct dose of 300mg at bedtime - Dehydration: responding well to fluids, continue NSS at 100cc/hr overnight, likely stop tomorrow - Hyponatremia: likely from poor solute intake, Na improved to 133, repeat tomorrow - Hypokalemia: PO replacement with 40mEq today - Paroxysmal afib with RVR: converted to NSR after 3 doses of Lopressor 5mg IV continue home dose of Toprol discussed anticoagulation with patient's son he would be in favor of using novel agents, he is aware of risk of bleeding and no reversal will ask CM to check cost of Eliquis tomorrow echocardiogram pending - Possible UTI: culture with pinpoint growth will continue Rocephin for now, likely treat only three days GERD - continue pantoprazole Hypothyroidism - Continue levothyroxine Dementia - continue memantine plan: keep on tele today, likely to medical tomorrow, PT/OT consults, look for rehab stay and then transition to assisted living she was independent living prior to admission, but with confusion about medications, would be safer in assisted living
[2017-02-25 18:06] LABS: PARTIAL THROMBOPLASTIN RATIO 2.5
[2017-02-25] MEDS: CEFTRIAXONE SOD INJ 1 GM in DEXTROSE 5% ADD-VANTAGE 50ML 50 ML IV SCH (19:26)
[2017-02-26] VITALS (11 sets, daily range): BP systolic 100–142; BP diastolic 56–85; PULSE 28–75; TEMP 36.4–37.2; O2SAT 95–100
[2017-02-26] MEDS: SODIUM CHLORIDE 0.9% 1000ML 1,000 ML IV SCH (02:13)
[2017-02-26] MEDS: IBUPROFEN 200 MG TAB PO PRN ×3 (02:45→21:12)
[2017-02-26] MEDS: LEVOTHYROXINE 75 MCG TAB PO SCH (06:12)
[2017-02-26 07:26] LABS: PARTIAL THROMBOPLASTIN RATIO 3.2
[2017-02-26] MEDS: MULTIVITAMIN TAB PO SCH (08:18)
[2017-02-26] MEDS: PANTOprazole SOD 40 MG TAB PO SCH (08:18)
[2017-02-26] MEDS: BOOST VANILLA PO SCH ×4 (08:18→21:03)
[2017-02-26] MEDS: METOPROLOL SUCC 25MG EXT REL TAB PO SCH (08:19)
[2017-02-26] MEDS: LISINOPRIL 40 MG TAB PO SCH (08:19)
[2017-02-26] MEDS: ATORVASTATIN 10 MG TAB PO SCH (08:20)
[2017-02-26] MEDS: ASPIRIN 81 MG ECTAB PO SCH (08:20)
[2017-02-26] MEDS: ASCORBIC ACID 500 MG TAB PO SCH (08:20)
[2017-02-26] MEDS: CALCIUM 600MG + VIT D 400 IU TAB PO SCH (08:20)
[2017-02-26] MEDS: MEMANTINE 10 MG TAB PO SCH (08:20)
[2017-02-26] MEDS: POTASSIUM CHLORIDE 20 MEQ TABCR PO SCH (08:21)
[2017-02-26 10:58] LABS: BUN/CREATININE RATIO 12.9 (10-20); CALCIUM 8.5 mg/dl (8.5-10.1); CREATININE 0.85 mg/dl (0.60-1.20); POTASSIUM 4.7 mmol/L (3.5-5.1)
--- NOTE | 2017-02-26 14:50 | Progress Note ---
Subjective Date of Service: Feb 26, 2017. Subjective Pt evaluation today including: conversation w/ patient, conversation w/ family (son), physical exam, lab review, review of inpatient medication list Pain: no pain PO Intake: adequate Voiding: no voiding problems patient doing well, sitting up in chair this AM, pain controlled, eating better reviewed labs, Cr improved, Na normal checked on copay for [place], $150, son okay with this cost will go to medical floor today, anticipating rehab tomorrow Problem List Medical Problems: (1) CHF (congestive heart failure) Status: Acute (2) Clostridium difficile diarrhea Status: Acute (3) Fall Status: Acute (4) Hypertensive emergency Status: Acute (5) Hyponatremia Status: Acute (6) Lumbar compression fracture Status: Acute (7) UTI (urinary tract infection) Status: Acute (8) UTI (urinary tract infection) Status: Acute (9) Weakness Status: Acute Review of Systems Constitutional: + weakness, + fatigue All Other Systems: Reviewed and Negative Medications Current Inpatient Medications Medications (Trade) Dose Ordered Sig/Sapphire Route Start Time Stop Time Status Last Admin Dose Admin Acetaminophen (Tylenol Tab) 650 mg Q4H PRN PO 02/24/17 20:45 03/26/17 20:44 Ondansetron HCl (Zofran Inj) 4 mg Q6H PRN IV 02/24/17 20:45 03/26/17 20:44 Ascorbic Acid (Vitamin C Tab) 500 mg DAILY PO 02/25/17 09:00 03/27/17 08:59 02/26/17 08:20 500 MG Aspirin (Ecotrin Tab) 81 mg DAILY PO 02/25/17 09:00 03/27/17 08:59 02/26/17 08:20 81 MG Atorvastatin Calcium (Lipitor Tab) 10 mg DAILY PO 02/25/17 09:00 03/27/17 08:59 02/26/17 08:20 10 MG Gabapentin (Neurontin Cap) 300 mg HS PO 02/24/17 21:00 03/26/17 20:59 02/25/17 19:26 300 MG Levothyroxine Sodium (Synthroid Tab) 75 mcg DAILYBB PO 02/25/17 06:00 03/27/17 06:59 02/26/17 06:12 75 MCG Lisinopril (Zestril Tab) 40 mg DAILY PO 02/25/17 09:00 03/27/17 08:59 02/26/17 08:19 40 MG Metoprolol Succinate (Toprol Xl Tab) 25 mg DAILY PO 02/25/17 09:00 03/27/17 08:59 02/26/17 08:19 25 MG Mirtazapine (Remeron Tab) 15 mg HS PO 02/24/17 21:00 03/26/17 20:59 02/25/17 19:26 15 MG Multivitamins (Multivitamin Tab) 1 tab DAILY PO 02/25/17 09:00 03/27/17 08:59 02/26/17 08:18 1 TAB Calcium/Vitamin D (Caltrate Plus Tab) 1 tab DAILY PO 02/25/17 09:00 03/27/17 08:59 02/26/17 08:20 1 TAB Memantine (Namenda Tab) 10 mg QAM PO 02/25/17 09:00 03/27/17 08:59 02/26/17 08:20 10 MG Pantoprazole Sodium (Protonix Tab) 40 mg QAM PO 02/25/17 09:00 03/27/17 08:59 02/26/17 08:18 40 MG Heparin Sodium/ Dextrose 500 ml @ 8 mls/hr Q24H PRN IV 02/24/17 22:30 03/26/17 22:29 02/25/17 04:11 12 MLS/HR Ceftriaxone Sodium 1 gm/ Dextrose 50 ml @ 100 mls/hr Q24H IV 02/25/17 19:00 02/28/17 19:29 02/25/17 19:26 100 MLS/HR Enteral Nutritional Formula (Boost) 1 can BID PO 02/25/17 09:00 03/27/17 08:59 02/26/17 08:18 1 CAN Potassium Chloride (Klor-Con Tab) 40 meq DAILY PO 02/25/17 09:00 03/27/17 08:59 02/26/17 08:21 40 MEQ Ibuprofen (Advil Tab) 400 mg TID PRN PO 02/25/17 12:15 03/27/17 12:14 02/26/17 11:13 400 MG Objective Vital Signs Date Time Temp Pulse Resp B/P (MAP) Pulse Ox O2 Delivery O2 Flow Rate FiO2 02/26/17 13:07 36.5 72 20 142/65 (90) 100 Room Air 02/26/17 12:48 36.8 66 20 97 02/26/17 12:00 Room Air 02/26/17 11:08 36.4 63 20 134/68 (90) 95 Room Air 02/26/17 08:00 Room Air 02/26/17 07:43 36.8 66 20 133/68 (89) 97 Room Air 02/26/17 04:41 37.2 75 17 131/82 (98) 100 Room Air 02/26/17 04:00 100 Room Air 02/26/17 00:36 37.0 60 17 100/64 (76) 96 Room Air 02/26/17 00:00 96 Room Air 02/25/17 20:13 Room Air 02/25/17 19:52 37.0 66 18 100/51 (67) 92 Room Air 02/25/17 16:08 37.0 68 16 127/79 (95) 93 Room Air 114/58 (76) 113/54 (73) 02/25/17 16:00 Room Air Physical Exam General Appearance: WD/WN, no apparent distress Neck: supple, no adenopathy, no JVD, trachea midline Respiratory/Chest: chest non-tender, lungs clear, normal breath sounds, no respiratory distress, no accessory muscle use Cardiovascular: regular rate, rhythm, no edema, no gallop, no JVD, no murmur Abdomen: normal bowel sounds, non tender, soft, no organomegaly Extremities: normal range of motion, non-tender, normal inspection, no pedal edema, no calf tenderness, pelvis stable 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, no motor/sensory deficits, alert, normal mood/affect, oriented x 3 Skin: normal color, warm/dry, no rash Laboratory Results Last 24 Hours Test 02/25/17 17:19 02/26/17 06:49 02/26/17 06:54 02/26/17 13:55 Activated Partial Thromboplast Time 64.1 SECONDS 83.3 SECONDS Partial Thromboplastin Ratio 2.5 3.2 Sodium Level 136 mmol/L Potassium Level 4.7 mmol/L Chloride Level 105 mmol/L Carbon Dioxide Level 25 mmol/L Anion Gap 7.0 mmol/L Blood Urea Nitrogen 11 mg/dl Creatinine 0.85 mg/dl Est Creatinine Clear Calc Drug Dose 37.2 ml/min Estimated GFR () 70.4 Estimated GFR (Non- 60.7 BUN/Creatinine Ratio 12.9 Random Glucose 83 mg/dl Calcium Level 8.5 mg/dl Assessment and Plan 89 year old female presents with confusion suspect secondary to hyponatremia, dehydration +/- UTI - Toxic encephalopathy secondary to increased dose of Gabapentin (unintentional ) in addition to dehydration, hyponatremia and UTI patient improved over past 48 hours with fluids, stop fluids today Na is now normal continue Rocephin for UTI continue Gabapentin at correct dose of 300mg at bedtime mentation appears to be at baseline - Dehydration: responded well to fluids, eating and drinking well, stop fluids - Hyponatremia: likely from poor solute intake, Na normal today, stop fluids - Hypokalemia: PO replacement with 40mEq, K is 4.7 today - Paroxysmal afib with RVR: converted to NSR after 3 doses of Lopressor 5mg IV continue home dose of Toprol discussed anticoagulation with patient's son he would be in favor of using novel agents, he is aware of risk of bleeding and no reversal will go with Xarelto 15mg daily (due to age, Cr clearance) - Possible UTI: gram negative bacilli will continue Rocephin for now, await final results and sensitivities GERD - continue pantoprazole Hypothyroidism - Continue levothyroxine Dementia - continue memantine plan: to medical floor today, likely d/c to rehab tomorrow
[2017-02-26 15:09] LABS: PARTIAL THROMBOPLASTIN RATIO 2.3
[2017-02-26] MEDS ORDERED: RIVAROXABAN TAB 15 MG TAB PO SCH (15:15)
[2017-02-26] MEDS ORDERED: NURSING VERBAL MED ORDER ONE (16:15)
[2017-02-26] MEDS ORDERED: CALCIUM CARBONATE 500 MG CHEWABLE PO PRN (16:30)
[2017-02-26] MEDS: CALCIUM CARBONATE 500 MG CHEWABLE PO PRN ×3 (17:21→23:01)
[2017-02-26] MEDS: CEFTRIAXONE SOD INJ 1 GM in DEXTROSE 5% ADD-VANTAGE 50ML 50 ML IV SCH (19:00)
[2017-02-26] MEDS: GABAPENTIN 300 MG CAP PO SCH (21:04)
[2017-02-26] MEDS: MIRTAZAPINE TAB 15 MG TAB PO SCH (21:04)
[2017-02-27] MEDS: LEVOTHYROXINE 75 MCG TAB PO SCH (05:54)
[2017-02-27 07:19] VITALS: BP 131/84; PULSE 57; TEMP 36.6; O2SAT 97
[2017-02-27 07:34] LABS: HEMATOCRIT 31.2 % (37-47); MEAN CELL VOLUME 95.4 fL (80-100); MEAN CORPUSCULAR HEMOGLOBIN 31.5 pg (25-34); MEAN PLATELET VOLUME 9.5 fL (7.4-10.4); PLATELET COUNT 153 K/uL (130-400); RED BLOOD COUNT 3.27 M/uL (4.2-5.4); WHITE BLOOD COUNT 4.31 K/uL (4.8-10.8)
[2017-02-27 07:40] LABS: PARTIAL THROMBOPLASTIN RATIO 1.3
[2017-02-27] MEDS: BOOST VANILLA PO SCH ×2 (08:25)
[2017-02-27] MEDS: IBUPROFEN 200 MG TAB PO PRN (08:26)
[2017-02-27] MEDS: ATORVASTATIN 10 MG TAB PO SCH (08:26)
[2017-02-27] MEDS: PANTOprazole SOD 40 MG TAB PO SCH (08:26)
[2017-02-27] MEDS: LISINOPRIL 40 MG TAB PO SCH (08:26)
[2017-02-27] MEDS: MULTIVITAMIN TAB PO SCH (08:26)
[2017-02-27] MEDS: ASPIRIN 81 MG ECTAB PO SCH (08:26)
[2017-02-27] MEDS: METOPROLOL SUCC 25MG EXT REL TAB PO SCH (08:27)
[2017-02-27] MEDS: CALCIUM 600MG + VIT D 400 IU TAB PO SCH (08:27)
[2017-02-27] MEDS: ASCORBIC ACID 500 MG TAB PO SCH (08:28)
[2017-02-27] MEDS: CALCIUM CARBONATE 500 MG CHEWABLE PO PRN (08:28)
[2017-02-27] MEDS: MEMANTINE 10 MG TAB PO SCH (08:28)
[2017-02-27] MEDS ORDERED: POTASSIUM CHLORIDE 10 MEQ TABCR PO SCH (09:00)
[2017-02-27] MEDS ORDERED: XRL15 PO (09:50)
[2017-02-27] MEDS ORDERED: IBUP-1050 PO (09:50)
--- NOTE | 2017-02-27 09:55 | Discharge Instructions ---
Discharge Instructions Date of Service Feb 27, 2017. Admission Reason for Admission: Paroxysmal atrial fibrillation, E coli UTI, hyponatremia Discharge Discharge Diagnosis / Problem: Paroxysmal afib, UTI, hyponatremia, dehydration Discharge Goals Goal(s): Improve function, Increase independence Activity Recommendations Activity Level: Assistance Required Therapies: Physical Therapy, Occupational Therapy Lifting Limitations: none Exercise/Sports Limitations: as tolerated Shower/Bathe: no limitations . Additional Information Patient informed of condition: Yes Advance Directives: Yes DNR: Yes Level of Care: Acute Rehab Communicable Disease: No Prognosis: Stable Oxygen at (LPM): none Coon Catheter: No Instructions / Follow-Up Instructions / Follow-Up Medications: - XARELTO: 15mg daily at dinner time - KEFLEX: for E coli UTI, pansensitive, take for 4 more days for 7 days total treatment - IBUPROFEN: patient takes this at home, has been using for years, 400mg every 4 hours for arthritic pain - Toxic encephalopathy secondary to increased dose of Gabapentin (unintentional ) in addition to dehydration, hyponatremia and UTI patient improved over past 72 hours with fluids Na is now normal continue Rocephin for UTI continue Gabapentin at correct dose of 300mg at bedtime mentation appears to be at baseline - Dehydration: responded well to fluids, eating and drinking well, stop fluids - Hyponatremia: likely from poor solute intake, Na normal today, stop fluids - Hypokalemia: PO replacement with 40mEq, K is 4.7 today - Paroxysmal afib with RVR: converted to NSR after 3 doses of Lopressor 5mg IV continue home dose of Toprol, HR has been stable discussed anticoagulation with patient's son he would be in favor of using novel agents, he is aware of risk of bleeding and no reversal will go with Xarelto 15mg daily (due to age, Cr clearance) - E coli UTI, pansensitive treated with Rocephin for three day, will discharge on Keflex for 4 more days FOLLOW UP - physician at [facility] - PCP one week after discharge from rehab Current Hospital Diet Patient's current hospital diet: AHA Diet (Heart Healthy), Low Sodium Diet (2gm Na) Discharge Diet Recommended Diet: AHA Diet (Heart Healthy) Pending Studies Studies pending at discharge: no Physician Orders On Transfer POLST Discussion: without POLST completion Medical Emergencies . Who to Call and When: Medical Emergencies: If at any time you feel your situation is an emergency, please call 911 immediately. . Non-Emergent Contact Non-Emergency issues call your: Primary Care Provider Call Non-Emergent contact if: you have any medication questions . . "Provider Documentation" section prepared by Seamus Mason. . Core Measure Problem Core Measures: None [place] Drug Monitoring Program Search Results: no issues identified
[2017-02-27] MEDS ORDERED: CEPH500C PO (09:56)
[2017-02-27 11:24] VITALS: BP 131/84; PULSE 57; TEMP 36.6; O2SAT 97
--- NOTE | 2017-02-27 16:01 | Discharge Summary ---
Discharge Summary Date of Service Feb 27, 2017. Discharge Summary Admission Date: Feb 24, 2017 at 21:07 Discharge Date: Feb 27, 2017 Discharge Disposition: Rehab Principal Diagnosis: Toxic encephalopathy Problems/Secondary Diagnoses: Paroxysmal atrial fibrillation E coli UTI Dehydration Hyponatremia Gabapentin overdose, unintentional Immunizations: Have You Had Influenza Vaccine: Yes Influenza Vaccine Date: Dec 13, 2010 History of Tetanus Vaccine?: Unknown History of Pneumococcal: Yes Pneumococcal Date: Dec 13, 2010 History of Hepatitis B Vaccine: Unknown Procedures: none Consultations: none Medication Reconciliation New Medications: Cephalexin Monohydrate (Keflex) 500 Mg Cap 1 CAP PO BID for 4 Days, #8 CAP first dose in AM on 02/28 Ibuprofen (Advil) 200 Mg Tab 400 MG PO Q4H PRN for Pain, #60 TAB 0 Refills Rivaroxaban (Xarelto) 15 Mg Tab 15 MG PO QDD, #30 TAB 3 Refills Continued Medications: Ascorbic Acid (Vitamin C) 500 Mg Tab 1 TAB PO DAILY Aspirin Enteric Coated (Ecotrin Or Generic *) 81 Mg Ectab 81 MG PO DAILY, 0 Refills Atorvastatin (Lipitor) 10 Mg Tab 10 MG PO DAILY Calcium Carbonate-Vitamin D (Calcium) 1 Tab Tab 1 TAB PO DAILY Clindamycin Hcl (Cleocin) 300 Mg Cap 300 MG PO UD for 7 Days, CAP PRIOR TO DENTAL Furosemide (Lasix) 40 Mg Tab 40 MG PO DAILY, TAB Gabapentin (Neurontin) 300 Mg Cap 300 MG PO HS, 0 Refills Levothyroxine (Synthroid *) 0.075 Mg Tab 0.075 MG PO DAILY, 0 Refills Lisinopril (Zestril) 40 Mg Tab 40 MG PO DAILY, TAB Memantine Hcl (Namenda Xr) 14 Mg Cap 14 MG PO DAILY Metoprolol Succinate (Toprol Xl) 25 Mg Tabcr 25 MG PO DAILY, TAB Mirtazapine (Mirtazapine) 15 Mg Tab 15 MG PO HS Multivitamin (Multivitamin) Tab 1 TABLET PO DAILY, 0 Refills Omeprazole (Prilosec) 40 Mg Cap 40 MG PO DAILY, CAP Potassium Chloride (Micro-K Ext Rel) 10 Meq Capcr 10 MEQ PO DAILY, CAP Discontinued Medications: Ibuprofen (Advil) 200 Mg Tab 200 MG PO PRN, TAB Discharge Exam Patient feeling well, pain controlled, breathing well. Reviewed labs, stable. Patient ready for discharge today. Review of Systems: Constitutional: No fever, No chills, No sweats, No weight loss, No weakness , No fatigue, No problem reported Eyes: No worsening of vision, No eye pain, No redness, No discharge, No diplopia, No problem reported ENT: No hearing loss, No unusual epistaxis, No nasal symptoms, No sore throat, No tinnitus, No dental problems, No trouble swallowing, No problem reported Respiratory: No cough, No sputum, No wheezing, No shortness of breath, No dyspnea on exertion, No dyspnea at rest, No hemoptysis, No problem reported Cardiovascular: No chest pain, No orthopnea, No PND, No edema, No claudication, No palpitations, No problem reported Abdomen: No pain, No nausea, No vomiting, No diarrhea, No constipation, No GI bleeding, No problem reported Musculoskeletal: + joint pain (chronic), No muscle pain, No swelling, No calf pain, No problem reported Genitourinary - Female: No dysuria, No urinary frequency, No urinary urgency , No urinary incontinence, No urinary retention, No hematuria Psychiatric: No depression symptoms, No anhedonism, No anxiety, No insomnia , No substance abuse, No problem reported Endocrine: No fatigue, No excessive thirst, No excessive urination, No problem reported Hematologic / Lymphatic: No abnormal bleeding/bruising, No clotting problems , No swollen lymph nodes, No night sweats, No problem reported Integumentary: No rash, No itch, No new/changing skin lesions, No color change, No bleeding, No problem reported Physical Exam: General Appearance: WD/WN, no apparent distress Eyes: normal inspection, EOMI, sclerae normal ENT: normal ENT inspection, hearing grossly normal, pharynx normal Neck: supple, no adenopathy, no JVD, trachea midline Respiratory/Chest: chest non-tender, lungs clear, normal breath sounds, no respiratory distress, no accessory muscle use Cardiovascular: regular rate, rhythm, no edema, no gallop, no JVD, no murmur , normal peripheral pulses Abdomen / GI: normal bowel sounds, non tender, soft, no organomegaly Extremities: normal inspection, no calf tenderness, normal capillary refill , no pedal edema, normal range of motion, pelvis stable Neurologic/Psychiatric: 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, no motor/sensory deficits , alert, normal mood/affect, normal reflexes, oriented x 3 Skin: normal color, warm/dry, no rash Hospital Course 89 year old female presents with confusion suspect secondary to hyponatremia, dehydration +/- UTI - Toxic encephalopathy secondary to increased dose of Gabapentin (unintentional ) in addition to dehydration, hyponatremia and UTI patient's mental status is back to baseline, oriented x 3 Na is now normal continue Rocephin for UTI, d/c on Keflex continue Gabapentin at correct dose of 300mg at bedtime - Dehydration: responded well to fluids, eating and drinking well, stopped fluids yesterday - Hyponatremia: likely from poor solute intake, Na normal for two days - Hypokalemia: resolved - Paroxysmal afib with RVR: converted to NSR after 3 doses of Lopressor 5mg IV in the ED continue home dose of Toprol discussed anticoagulation with patient's son he would be in favor of using novel agents, he is aware of risk of bleeding and no reversal will go with Xarelto 15mg daily (due to age, Cr clearance) - E coli UTI: treated with Rocephin for 3 days, d/c on Keflex for 4 more days GERD - continue pantoprazole Hypothyroidism - Continue levothyroxine Dementia - continue memantine plan: d/c to [facility] today Total Time Spent: Greater than 30 minutes This includes examination of the patient, discharge planning, medication reconciliation, and communication with other providers. Discharge Instructions Please refer to the electronic Patient Visit Report (Discharge Instructions) for additional information. Follow-Up physician at [facility] Additional Copies To Geraldo Rick M.D.; [facility]
[2017-03-14] MEDS ORDERED: PANT40TA PO (16:23)
[2017-03-14] MEDS ORDERED: MIRT15TA2 PO (16:23)
[2017-03-14] MEDS ORDERED: MULT-513 PO (16:23)
[2017-03-14] MEDS ORDERED: ASPI-461 PO (16:23)
[2017-03-14] MEDS ORDERED: LEVO75TA5 PO (16:23)
[2017-03-14] MEDS ORDERED: SENN-61 PO (16:23)
[2017-03-14] MEDS ORDERED: NAPR1TAB9 PO (16:23)
[2017-03-14] MEDS ORDERED: ONDA4TAB10 SL (19:00)
[2017-03-14] MEDS ORDERED: GABA1CAP PO (19:00)
[2017-03-14] MEDS ORDERED: TRAM-10 PO (20:25)
== END 2017-02-27 12:30 | DRG 640 ==
LOC: C.EDB 15:26 → CANRESERV 21:02 → ENRESERV 21:02 → EDBEDREQTM 21:05 → EDBEDREQSVC 21:05 → C.2E 21:07 → ENRESERV 21:08 → C.MS2W 02-26 12:54
PROVIDERS: ADMIT Hospitalist; ATTEND Internal Medicine
DX: E46 Unspecified protein-calorie malnutrition (principal); G93.41 Metabolic encephalopathy; S32.010A Wedge compression fracture of first lumbar vertebra, initial encounter for closed fracture; N39.0 Urinary tract infection, site not specified; E87.1 Hypo-osmolality and hyponatremia; A49.8 Other bacterial infections of unspecified site; Z66 Do not resuscitate; T42.71XA Poisoning by unspecified antiepileptic and sedative-hypnotic drugs, accidental (unintentional), initial encounter; I35.8 Other nonrheumatic aortic valve disorders; I05.9 Rheumatic mitral valve disease, unspecified; W19.XXXA Unspecified fall, initial encounter; I48.0 Paroxysmal atrial fibrillation; F03.90 Unspecified dementia, unspecified severity, without behavioral disturbance, psychotic disturbance, mood disturbance, and anxiety; Z87.01 Personal history of pneumonia (recurrent); Z79.82 Long term (current) use of aspirin

== ENCOUNTER → 2017-03-18 | Outpatient (CLI) | payer OTHER, MEDICARE ==
[~2017-03-18] MED LIST changes: -ASPEC81 PO; +ASPI-461 PO; -CLIN300C2 PO; +FRS/40 PO; -FURO20TA PO; -GABA-113 PO; +GABA1CAP PO; -IBUP-1277 PO; +LEVO75TA5 PO; +LISI40TA PO; -LSN20 PO; +MIRT15TA2 PO; -MULT-506 PO; +MULT-513 PO; +NAPR1TAB9 PO; -OMEP40CA41 PO; +ONDA4TAB10 SL; +PANT40TA PO; -RMR15 PO; +SENN-61 PO; -SYN75 PO; +TRAM-10 PO
[2017-03-18 13:00] LABS: BASO % 0.4 %; BASO ABS # 0.02 K/uL (0-0.2); COMPLETE YES; HEMATOCRIT 38.5 % (37-47); IG% 0.2 %; LYMPH % 28.5 %; LYMPH ABS # 1.58 K/uL (1.2-3.4); MEAN CELL VOLUME 96.3 fL (80-100); MEAN CORPUSCULAR HEMOGLOBIN 32.3 pg (25-34); MEAN CORPUSCULAR HGB CONC 33.5 g/dl (32-36); MEAN PLATELET VOLUME 11.6 fL (7.4-10.4); MONO % 9.9 %; PLATELET COUNT 200 K/uL (130-400); WHITE BLOOD COUNT 5.55 K/uL (4.8-10.8)
[2017-03-18 13:04] LABS: BLOOD UREA NITROGEN 18 mg/dl (7-18); CALCIUM 9.2 mg/dl (8.5-10.1); CARBON DIOXIDE 25 mmol/L (21-32); CHLORIDE 99 mmol/L (98-107); CREATININE 1.27 mg/dl (0.60-1.20); GLUCOSE 93 mg/dl (70-99); POTASSIUM 3.9 mmol/L (3.5-5.1); SODIUM 132 mmol/L (136-145)
== END | disposition home or self-care (01) ==
LOC: C.LABOAKS 12:28
PROVIDERS: ATTEND Physician Assistant
DX: Z87.440 Personal history of urinary (tract) infections (principal)

== ENCOUNTER 2017-03-20 11:28 | Emergency (ER) | payer OTHER, MEDICARE ==
[~2017-03-20 11:28] MED LIST changes: -MEMA1CAP3 PO
[2017-03-20 11:32] VITALS: TEMP 36.6; Ht 160 cm
--- NOTE | 2017-03-20 12:27 | EMERGENCY ROOM VISIT NOTE ---
History Report prepared by Haider: Howard Morris Under the Supervision of: Dr. Carl Ramírez M.D. First contact with patient: 12:20 Chief Complaint: NAUSEA Stated Complaint: NAUSEA,NOT TAKING MEDS Nursing Triage Summary: nausea, refusing to take meds, refusing to eat or drink. History of Present Illness The patient is a 89 year old female who presents to the Emergency Room with complaints of refusing medications and limited dietary intake. Per her steward/stewardess smoke room Callie at [facility], the patient has extreme nausea and pain. She was previously seen by Dr. Ashraf who completed an extensive workup on the patient. She denies abdominal pain. Of note, the patient has a history of dementia. Source of History: patient, spouse/significant other Onset: prior to arrival Position: other (general ) Timing: constant Modifying Factors (Relieving): other (refusing medication ) Associated Symptoms: + nausea, No abdominal pain Note: generalized pain Review of Systems See HPI for pertinent positives & negatives. A total of 10 systems reviewed and were otherwise negative. 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 Family History Omitted secondary to age Social History Smoking Status: Never Smoker Alcohol Use: none Drug Use: none Marital Status: single Housing Status: lives with family Occupation Status: retired Current/Historical Medications Scheduled Ascorbic Acid (Vitamin C), 1 TAB PO QAM Aspirin (Aspirin), 1 TAB PO QAM Atorvastatin (Lipitor), 10 MG PO HS Calcium Carbonate-Vitamin D (Calcium), 1 TAB PO QAM Furosemide (Lasix), 40 MG PO QAM Gabapentin (Neurontin), 100 MG PO QPM Levothyroxine Sodium (Levothyroxine Sodium), 1 TAB PO QAM Lisinopril (Zestril), 40 MG PO QAM Memantine Hcl (Namenda Xr), 14 MG PO DAILY Metoprolol Succinate (Toprol Xl), 25 MG PO QAM Mirtazapine Soltab (Remeron Soltab), 15 MG PO HS Multivitamins/Minerals (Mvi With Minerals), 1 TAB PO QAM Naproxen (Aleve), 220 MG PO BIDM Ondasetron Odt (Zofran Odt), 4 MG SL Q6H Pantoprazole (Protonix), 40 MG PO QAM Potassium Chloride (Micro-K Ext Rel), 10 MEQ PO QAM Senna (Senokot), 1 TAB PO 1200 Scheduled PRN Tramadol (Ultram), 50 MG PO Q8H PRN for Pain Allergies Coded Allergies: Penicillins (Verified Allergy, Intermediate, RXN = RASH, NO SOB, NO EDEMA PER PATIENT REPORT, 03/20/17) Sulfa Antibiotics (Verified Allergy, Intermediate, RXN = RASH, NO SOB, NO EDEMA PER PATIENT REPORT, 03/20/17) Erythromycin (Verified Allergy, Mild, unknown, 03/20/17) Lidocaine (Verified Allergy, Mild, 03/20/17) Tetracyclines (Verified Allergy, Mild, 03/20/17) Zinc (Verified Allergy, Mild, MADE JAW SORE WITH PASTE FOR DENTURES, ) Morphine (Verified Adverse Reaction, Unknown, SENSITIVE TO MEDICATION, 03/20/17) Physical Exam Vital Signs Date Time Temp Pulse Resp B/P (MAP) Pulse Ox O2 Delivery O2 Flow Rate FiO2 03/20/17 15:20 80 20 145/73 95 Room Air 03/20/17 13:30 78 16 148/79 95 03/20/17 11:32 36.6 74 18 125/72 92 Room Air Physical Exam GENERAL: Patient is well appearing and in no acute distress. Elderly. Mildly Demented. HEENT: No acute trauma, normocephalic atraumatic, mucous membranes moist, no nasal congestion, no scleral icterus. NECK: No stridor, no adenopathy, no meningismus, trachea is midline. LUNGS: No dyspnea. Clear to auscultation and equal bilaterally. No wheeze, no rhonchi. HEART: Regular rate and rhythm. No murmurs, rubs, gallops appreciated. ABDOMEN: Soft, nontender, bowel sounds positive, no masses appreciated, no peritonitis. BACK: No midline tenderness, no CVA tenderness EXTREMITIES: Normal motion all extremities, no cyanosis, no edema. NEUROLOGIC: Alert and oriented, no acute motor or sensory deficits, no focal weakness, cranial nerves grossly intact. SKIN: No rash, no jaundice, no diaphoresis. Medical Decision & Procedures Laboratory Results 03/20/17 12:38 Red Blood Count 3.73, Mean Corpuscular Volume 95.4, Mean Corpuscular Hemoglobin 32.7, Mean Corpuscular Hemoglobin Concent 34.3, Mean Platelet Volume 10.9, Neutrophils (%) (Auto) 73.7, Lymphocytes (%) (Auto) 14.2, Monocytes (%) (Auto) 10.2, Eosinophils (%) (Auto) 1.1, Basophils (%) (Auto) 0.2, Neutrophils # (Auto ) 3.99, Lymphocytes # (Auto) 0.77, Monocytes # (Auto) 0.55, Eosinophils # (Auto ) 0.06, Basophils # (Auto) 0.01 03/20/17 12:38 Test 03/20/17 12:38 White Blood Count 5.41 K/uL (4.8-10.8) Red Blood Count 3.73 M/uL (4.2-5.4) Hemoglobin 12.2 g/dL (12.0-16.0) Hematocrit 35.6 % (37-47) Mean Corpuscular Volume 95.4 fL (80-100) Mean Corpuscular Hemoglobin 32.7 pg (25-34) Mean Corpuscular Hemoglobin Concent 34.3 g/dl (32-36) Platelet Count 228 K/uL (130-400) Mean Platelet Volume 10.9 fL (7.4-10.4) Neutrophils (%) (Auto) 73.7 % Lymphocytes (%) (Auto) 14.2 % Monocytes (%) (Auto) 10.2 % Eosinophils (%) (Auto) 1.1 % Basophils (%) (Auto) 0.2 % Neutrophils # (Auto) 3.99 K/uL (1.4-6.5) Lymphocytes # (Auto) 0.77 K/uL (1.2-3.4) Monocytes # (Auto) 0.55 K/uL (0.11-0.59) Eosinophils # (Auto) 0.06 K/uL (0-0.5) Basophils # (Auto) 0.01 K/uL (0-0.2) RDW Standard Deviation 48.3 fL (36.4-46.3) RDW Coefficient of Variation 14.0 % (11.5-14.5) Immature Granulocyte % (Auto) 0.6 % Immature Granulocyte # (Auto) 0.03 K/uL (0.00-0.02) Platelet Estimate NORMAL Anion Gap 7.0 mmol/L (3-11) Estimated GFR () 54.5 Estimated GFR (Non- 47.0 BUN/Creatinine Ratio 15.7 (10-20) Calcium Level 9.3 mg/dl (8.5-10.1) Total Bilirubin 0.8 mg/dl (0.2-1) Aspartate Amino Transf (AST/SGOT) 30 U/L (15-37) Alanine Aminotransferase (ALT/SGPT) 25 U/L (12-78) Alkaline Phosphatase 96 U/L (45-117) Total Protein 7.1 gm/dl (6.4-8.2) Albumin 3.4 gm/dl (3.4-5.0) Globulin 3.7 gm/dl (2.5-4.0) Albumin/Globulin Ratio 0.9 (0.9-2) Lipase 151 U/L (73-393) Laboratory results as reviewed by me. ED Course 1249: I discussed the case with case management extensively for their involvement in patient management. 1300: The patient is hungry and would like something to eat. 1420: I checked with the patient and she is demanding to go back to the [facility]. Medical Decision 89 yr old pleasant female with dementia arrives from [facility] due to refusing to take her medications and not heating. She is clear that she is in no distress and by exam is well. Labs and vitals unremarkable. No significant dehydration. No evidence this is infectious. Case management involved who discussed with [facility] and will transfer her back there as no clear emergency reason for admission. Stable throughout and requesting food at times. Impression Primary Impression: Refuses to eat Additional Impression: Medical non-compliance Scribe Attestation The scribe's documentation has been prepared under my direction and personally reviewed by me in its entirety. I confirm that the note above accurately reflects all work, treatment, procedures, and medical decision making performed by me. Departure Information Dispostion Home / Self-Care Referrals [facility] (PCP) Patient Instructions [facility] Additional Instructions Labs done today were unremarkable, patient was without complaints and tolerating oral intake. She has been examined and treated today on an emergency basis only. This is not a substitute for, or an effort to provide, complete comprehensive medical care. It is impossible to recognize and treat all injuries or illnesses in a single emergency department visit. It is therefore important that you follow up closely with your Primary Physician. Return to Emergency Department, call 911 or seek immediate medical attention if you feel your symptoms are worsening. Problem Qualifiers
[2017-03-20] MEDS ORDERED: MEMA1CAP3 PO (13:27)
[2017-03-20 13:44] LABS: ALT/SGPT 25 U/L (12-78); AST/SGOT 30 U/L (15-37); BLOOD UREA NITROGEN 16 mg/dl (7-18); BUN/CREATININE RATIO 15.7 (10-20); CALCIUM 9.3 mg/dl (8.5-10.1); CARBON DIOXIDE 26 mmol/L (21-32); CHLORIDE 99 mmol/L (98-107); CREATININE 1.05 mg/dl (0.60-1.20); GLUCOSE 77 mg/dl (70-99); POTASSIUM 4.1 mmol/L (3.5-5.1); SODIUM 132 mmol/L (136-145)
[2017-03-20 13:46] LABS: ALB/GLOB RATIO 0.9 (0.9-2); ALKALINE PHOSPHATASE 96 U/L (45-117)
[2017-03-20 14:14] LABS: HEMATOCRIT 35.6 % (37-47); MEAN CELL VOLUME 95.4 fL (80-100); MEAN CORPUSCULAR HEMOGLOBIN 32.7 pg (25-34); MEAN CORPUSCULAR HGB CONC 34.3 g/dl (32-36); MEAN PLATELET VOLUME 10.9 fL (7.4-10.4); PLATELET COUNT 228 K/uL (130-400); RED BLOOD COUNT 3.73 M/uL (4.2-5.4); WHITE BLOOD COUNT 5.41 K/uL (4.8-10.8)
[2017-03-20 14:15] LABS: BASO % 0.2 %; BASO ABS # 0.01 K/uL (0-0.2); COMPLETE YES; EOS % 1.1 %; IG% 0.6 %; LYMPH % 14.2 %; LYMPH ABS # 0.77 K/uL (1.2-3.4); MONO % 10.2 %; NEUT % 73.7 %; PLT ESTIMATE NORMAL
[2017-03-20 15:20] VITALS: BP 145/73; PULSE 80; O2SAT 95
== END 2017-03-20 15:22 | disposition home or self-care (01) ==
LOC: C.EDB 11:30 → C.EDA 15:22
DX: R63.3 Feeding difficulties (principal); Z91.14 Patient's other noncompliance with medication regimen; F03.90 Unspecified dementia, unspecified severity, without behavioral disturbance, psychotic disturbance, mood disturbance, and anxiety; I70.0 Atherosclerosis of aorta; I35.8 Other nonrheumatic aortic valve disorders; I48.91 Unspecified atrial fibrillation; I51.7 Cardiomegaly; I50.9 Heart failure, unspecified; I11.0 Hypertensive heart disease with heart failure; E78.5 Hyperlipidemia, unspecified; I34.0 Nonrheumatic mitral (valve) insufficiency; I36.8 Other nonrheumatic tricuspid valve disorders; D47.2 Monoclonal gammopathy; Z79.82 Long term (current) use of aspirin

== ENCOUNTER 2017-04-09 16:20 | Inpatient (IN) | payer OTHER, MEDICARE ==
[~2017-04-09] VITALS: Ht 157.5 cm; Wt 59.3 kg
[~2017-04-09 16:20] MED LIST changes: -FRS/40 PO; -GABA1CAP PO; -LEVO75TA5 PO; +MEMA1CAP3 PO; +METOPROLOL TARTRATE 1 MG/ML VIAL IV. ONE; -MULT-513 PO
[2017-04-09] MEDS ORDERED: LEVO75TA5 PO (16:23)
[2017-04-09] MEDS ORDERED: MULT-513 PO ×2 (16:23)
[2017-04-09] MEDS ORDERED: FRS/40 PO (16:26)
[2017-04-09] MEDS ORDERED: LSN20 PO ×2 (16:52)
[2017-04-09] MEDS ORDERED: NRN100 PO ×2 (16:52)
[2017-04-09] MEDS ORDERED: IBUP-1050 PO ×3 (16:56)
[2017-04-09] MEDS ORDERED: OPTIRAY 320 IV PRN (17:00)
--- NOTE | 2017-04-09 17:02 | EMERGENCY ROOM VISIT NOTE ---
History Report prepared by Haider: Padmini Escobedo Under the Supervision of: Dr. Alexi Henao M.D. First contact with patient: 16:23 Chief Complaint: LETHARGIC Stated Complaint: LETHARGIC History of Present Illness The patient is an 89 year old female with a past medical history of aortic atherosclerosis, aortic valve disorder, cardiomegaly, congestive heart failure, hyperlipidemia, hypertension, mitral valve disorder, sciatica, and tricuspid valve disease who presents to the ED with a cc of persistent generalized weakness beginning one month ago. Positive abdominal pain. Negative recent trauma or chest pain. The patient's son states that the patient had all of her teeth removed 3 months ago and is currently in the process of getting dentures. Her son states that patient was staying at [facility] noting that one month ago the patient began complaining of dizziness and persistent nausea. Her son notes she has been coughing up clear mucous, has had a loss of appetite , and sometimes has difficulty taking her medication. The patient currently has assistant superintendent living. The patient's son states she has a history of dementia. Source of History: patient Onset: 1 month ago Quality: other (generalized weakness) Timing: other (persistent ) Associated Symptoms: + abdominal pain, No chest pain Review of Systems See HPI for pertinent positives and negatives. A total of ten systems were reviewed and were otherwise negative. 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 Family History Omitted secondary to age Social History Smoking Status: Never Smoker Alcohol Use: none Drug Use: none Marital Status: single Housing Status: lives with family Occupation Status: retired Current/Historical Medications Scheduled Ascorbic Acid (Vitamin C), 500 MG PO QAM Aspirin (Aspirin Ec), 81 MG PO QAM Atorvastatin (Lipitor), 10 MG PO QD@1700 Calcium Carbonate-Cholecalcife (Calcium 500+D 500-200 mg-Unit), 1 TAB PO QAM Furosemide (Lasix), 40 MG PO QAM Gabapentin (Gabapentin), 100 MG PO QPM Ibuprofen (Advil), 400 MG PO AMHS Ibuprofen (Advil), 200 MG PO QD@1200 Ibuprofen (Advil), 200 MG PO QD@1600 Levothyroxine Sodium (Levothyroxine Sodium), 75 MCG PO QAM Lisinopril (Lisinopril), 20 MG PO QAM Memantine Hcl (Namenda Xr), 14 MG PO QPM Metoprolol Succinate (Metoprolol Succinate ER), 25 MG PO QAM Mirtazapine (Remeron), 15 MG PO HS Multivitamins/Minerals (Mvi With Minerals), 1 TAB PO QAM Potassium Chloride (Potassium Chloride Er), 10 MEQ PO QAM Sennosides-Docusate Sodium (Docusate Sodium/Senna), 1 TAB PO QD@1200 Allergies Coded Allergies: Penicillins (Verified Allergy, Intermediate, RXN = RASH, NO SOB, NO EDEMA PER PATIENT REPORT, 03/20/17) Sulfa Antibiotics (Verified Allergy, Intermediate, RXN = RASH, NO SOB, NO EDEMA PER PATIENT REPORT, 03/20/17) Erythromycin (Verified Allergy, Mild, unknown, 03/20/17) Lidocaine (Verified Allergy, Mild, 03/20/17) Tetracyclines (Verified Allergy, Mild, 03/20/17) Zinc (Verified Allergy, Mild, MADE JAW SORE WITH PASTE FOR DENTURES, ) Morphine (Verified Adverse Reaction, Unknown, SENSITIVE TO MEDICATION, 03/20/17) Physical Exam Vital Signs Date Time Temp Pulse Resp B/P (MAP) Pulse Ox O2 Delivery O2 Flow Rate FiO2 04/09/17 20:48 82 04/09/17 20:47 82 106/66 93 Room Air 04/09/17 20:28 80 72/51 92 Room Air 04/09/17 19:26 76 18 81/47 93 Room Air 04/09/17 17:05 85 16 108/68 95 Room Air 04/09/17 16:47 77 04/09/17 16:46 94 Room Air 04/09/17 16:20 36.9 76 18 95/58 96 Room Air Physical Exam GENERAL: A & O x2 HENT: Normocephalic, atraumatic. EYES: Normal conjunctiva. Sclera non-icteric. NECK: Supple. No nuchal rigidity. FROM. RESPIRATORY: CTAB, no rhonchi, wheezing, crackles CARDIAC: RRR, no MRG ABDOMEN: Right abdomen distention with severe TTP that is diffused. BS+ MSK: No chest wall TTP, no LE edema NEURO: GCS 14, CN 2-12 intact, moves all 4s on command SKIN: No rash or jaundice noted. Medical Decision & Procedures ER Provider Diagnostic Interpretation: Radiology results as stated below per my review and radiologist interpretation: CHEST ONE VIEW PORTABLE CLINICAL HISTORY: Weakness. COMPARISON STUDY: Chest CT April 19, 2016 and chest radiograph March 14, 2017. FINDINGS: Note is made of median sternotomy wires and a prosthetic aortic valve. Mild cardiomegaly is unchanged. There is no evidence for pulmonary edema. Right breast surgical clips are noted. Mild left basilar opacity is unchanged. This favors atelectasis. Blunting of the left costophrenic angle is unchanged and likely related to epicardial fat pad. Appearance of the chest is unchanged. There is an old right clavicular fracture and old left-sided rib fractures. IMPRESSION: No acute cardiopulmonary findings. Mild left basilar opacity which favors atelectasis. Electronically signed by: Micheal Danielson M.D. 04/09/2017 6:20 PM Dictated Date/Time: 04/09/2017 6:[address] SCAN OF THE BRAIN WITHOUT IV CONTRAST CLINICAL HISTORY: Change in mental status. COMPARISON STUDY: CT of the brain dated 02/24/2017. TECHNIQUE: Unenhanced axial CT scan of the brain is performed from the vertex to the skull base. A dose lowering technique was utilized adhering to the principles of ALARA. FINDINGS: Brain parenchyma: There are age-related involutional changes noting mild to moderate subcortical and periventricular microangiopathic change. There is no hemorrhage, mass effect, or evidence of acute territorial ischemia by CT criteria. Mcneil-white matter is preserved. No extra-axial fluid collection is seen. Ventricles, sulci, cisterns: Prominent secondary to involutional change. Intracranial vasculature: There is atherosclerotic calcification of the cavernous carotid and vertebral arteries. Calvarium: Unremarkable. Sinuses and mastoids: The visualized paranasal sinuses are clear. The mastoid air cells are well pneumatized. Orbits: The bony orbits are grossly intact. There are bilateral ocular lens implants. IMPRESSION: Senescent changes as above with no hemorrhage, mass effect, or evidence of acute territorial ischemia by CT criteria. Electronically signed by: Miguelangel Mahoney M.D. 04/09/2017 8:21 PM Dictated Date/Time: 04/09/2017 8:[address] SCAN OF THE ABDOMEN AND PELVIS WITHOUT IV CONTRAST CLINICAL HISTORY: Generalized abdominal pain. COMPARISON STUDY: Abdominal CT scan dated 03/14/2017 and 11/23/2013. TECHNIQUE: CT scan of the abdomen and pelvis is performed from the lung bases to the proximal femora. Images are reviewed in the axial, sagittal, and coronal planes. IV contrast was not administered for this examination as per the referring clinician. Note that the examination was performed in suboptimal fashion without oral and IV contrast. A dose lowering technique was utilized adhering to the principles of ALARA. The examination is degraded by motion artifact, as well as by streak artifact from the patient's arms which could not be elevated above the abdomen. CT DOSE: 905.94 mGy.cm FINDINGS: Lung bases: Midline sternotomy wires are noted. The heart is mildly enlarged and without pericardial effusion. There are coronary artery calcifications. There is evidence of previous cardiac valve surgery. A tiny hiatal hernia is identified. There is bibasilar scarring versus atelectasis. No airspace consolidation or pleural effusion is seen. Liver: Evaluation of the liver is degraded by streak artifact. The unenhanced liver is normal in size, contour, and attenuation. There is no intrahepatic biliary ductal dilatation. Gallbladder: Surgically absent noting clips in the gallbladder fossa. Spleen: Normal in size and attenuation. Pancreas: The unenhanced pancreas is markedly atrophic and grossly unremarkable. Adrenal glands: Unremarkable. Kidneys: The unenhanced kidneys are atrophic and without hydronephrosis. There are no renal calculi identified. There are numerous bilateral renal cysts. The largest arises from the lower pole the right kidney and measures 5.4 cm. Small complex/hyperdense cysts are noted in the left kidney. These are unchanged from 2014. Abdominal vasculature: The abdominal aorta is normal in course and caliber noting moderate atherosclerotic calcification. Bowel: There is rectosigmoid fecal impaction. Mild stranding suggested around the descending and proximal sigmoid colon. This marrow present a mild colitis. There is only minimal colonic wall thickening. There is mild to moderate colonic diverticulosis without CT evidence of acute diverticulitis. No bowel obstruction is seen. The appendix is not identified. Peritoneum: There is no intraperitoneal free air or abdominal ascites. Lymphadenopathy: None. Pelvic viscera: The bladder is normal as visualized. The uterus is surgically absent. No adnexal lesion is seen. Skeletal structures: The skeletal structures are osteopenic. Degenerative change and scoliosis are noted in the lumbosacral spine. There are chronic compression deformities of L1 and L4. No lytic or blastic lesions are seen. IMPRESSION: 1. Suboptimal examination without oral and IV contrast. The examination is also degraded by streak and motion artifact. 2. Suspect a mild nonspecific colitis of the left colon. This could be on an infectious, inflammatory, or ischemic basis. Clinical correlation will be required. 3. Colonic diverticulosis without CT evidence of acute diverticulitis. 4. Cardiomegaly. 5. There is rectosigmoid fecal impaction. 6. Additional findings as above. Electronically signed by: Miguelangel Mahoney M.D. 04/09/2017 8:50 PM Dictated Date/Time: 04/09/2017 8:44 PM Laboratory Results 04/09/17 18:48 Red Blood Count 4.38, Mean Corpuscular Volume 94.5, Mean Corpuscular Hemoglobin 32.2, Mean Corpuscular Hemoglobin Concent 34.1, Mean Platelet Volume 11.1, Neutrophils (%) (Auto) 85.8, Lymphocytes (%) (Auto) 4.3, Monocytes (%) (Auto) 9.4, Eosinophils (%) (Auto) 0.1, Basophils (%) (Auto) 0.1, Neutrophils # (Auto) 12.29, Lymphocytes # (Auto) 0.62, Monocytes # (Auto) 1.35, Eosinophils # (Auto) 0.02, Basophils # (Auto) 0.01 04/09/17 18:48 Test 04/09/17 18:48 White Blood Count 14.33 K/uL (4.8-10.8) Red Blood Count 4.38 M/uL (4.2-5.4) Hemoglobin 14.1 g/dL (12.0-16.0) Hematocrit 41.4 % (37-47) Mean Corpuscular Volume 94.5 fL (80-100) Mean Corpuscular Hemoglobin 32.2 pg (25-34) Mean Corpuscular Hemoglobin Concent 34.1 g/dl (32-36) Platelet Count 188 K/uL (130-400) Mean Platelet Volume 11.1 fL (7.4-10.4) Neutrophils (%) (Auto) 85.8 % Lymphocytes (%) (Auto) 4.3 % Monocytes (%) (Auto) 9.4 % Eosinophils (%) (Auto) 0.1 % Basophils (%) (Auto) 0.1 % Neutrophils # (Auto) 12.29 K/uL (1.4-6.5) Lymphocytes # (Auto) 0.62 K/uL (1.2-3.4) Monocytes # (Auto) 1.35 K/uL (0.11-0.59) Eosinophils # (Auto) 0.02 K/uL (0-0.5) Basophils # (Auto) 0.01 K/uL (0-0.2) RDW Standard Deviation 50.0 fL (36.4-46.3) RDW Coefficient of Variation 14.5 % (11.5-14.5) Immature Granulocyte % (Auto) 0.3 % Immature Granulocyte # (Auto) 0.04 K/uL (0.00-0.02) Prothrombin Time 11.0 SECONDS (9.0-12.0) Prothromb Time International Ratio 1.0 (0.9-1.1) Activated Partial Thromboplast Time 28.8 SECONDS (21.0-31.0) Partial Thromboplastin Ratio 1.1 Venous Blood pH 7.37 (7.36-7.41) Venous Blood Partial Pressure CO2 44 mmHg (38.0-50.0) Venous Blood Partial Pressure O2 42 mmHg Venous Blood HCO3 25 mmol/L Venous Blood Oxygen Saturation 73.5 % Venous Blood Base Excess -0.8 mEq/L Anion Gap 14.0 mmol/L (3-11) Est Creatinine Clear Calc Drug Dose 8.2 ml/min Estimated GFR () 12.0 Estimated GFR (Non- 10.3 BUN/Creatinine Ratio 26.5 (10-20) Lactic Acid Level 1.6 mmol/L (0.4-2.0) Calcium Level 9.9 mg/dl (8.5-10.1) Magnesium Level 2.9 mg/dl (1.8-2.4) Total Bilirubin 0.4 mg/dl (0.2-1) Direct Bilirubin 0.2 mg/dl (0-0.2) Aspartate Amino Transf (AST/SGOT) 25 U/L (15-37) Alanine Aminotransferase (ALT/SGPT) 17 U/L (12-78) Alkaline Phosphatase 145 U/L (45-117) Troponin I < 0.015 ng/ml (0-0.045) Pro-B-Type Natriuretic Peptide 2329 pg/ml (0-1800) Total Protein 7.5 gm/dl (6.4-8.2) Albumin 2.7 gm/dl (3.4-5.0) Lipase 105 U/L (73-393) Thyroid Stimulating Hormone (TSH) 0.074 uIu/ml (0.300-4.500) Laboratory results reviewed by me Medications Administered Medications (Trade) Dose Ordered Sig/Sapphire Route Start Time Stop Time Status Last Admin Dose Admin Sodium Chloride 500 ml @ 500 mls/hr Q1H STAT IV 04/09/17 20:09 04/09/17 21:08 DC 04/09/17 20:09 500 MLS/HR ECG Indication: weakness Rate (beats per minute): 78 Rhythm: sinus with SA Findings: T-wave inversion (Anterior lateral and high lateral lead ), other ( normal interval, normal axis) Comparison ECG Date: findings are new compared to 03/14 ED Course 162: The patient was evaluated in room C3. A complete history and physical exam was performed. 1819: I reevaluated the patient, who was resting comfortably. 1944: The patient will be admitted into the hospital. She will be evaluated by a hospitalist. Medical Decision The patient is an 89 year old female with a past medical history of aortic atherosclerosis, aortic valve disorder, cardiomegaly, congestive heart failure, hyperlipidemia, hypertension, mitral valve disorder, sciatica, and tricuspid valve disease who presents to the ED with a cc of persistent generalized weakness beginning one month ago. Differential diagnosis: Etiologies such as metabolic, infection, hypoglycemia, electrolyte abnormalities , cardiac sources, intracerebral event, toxicologic, neurologic, as well as others were entertained, appendicitis, diverticulitis, PUD, biliary pathology, UTI, pancreatitis, obstruction, mesenteric ischemia, aortic pathology, infections, inflammatory bowel disease, renal colic, as well as others were entertained. Patient was seen and evaluated the bedside. Much of the history was obtained by the son who is also power of senior trial attorney. Of note the patient is DNR/DNI. Patient apparently had a change in mental status and was not as awake nor alert. On exam the patient is a GCS of 14 and will follow commands. Patient is a and O 2. Of note patient does have a history of dementia. Patient on exam will follow commands does move all fours with equal and symmetric strength. Patient did have notable abdominal distention with abdominal pain. Patient did have blood work completed along with an EKG, troponin, chest x-ray, CT of the abdomen pelvis. Patient's EKG did show diffuse T-wave inversions which are new changes. Patient has a negative troponin. Patient's chest x-ray does not show any focal consolidation. Patient does have a white blood cell count of 14. Patient is of acute renal failure and has an elevated BUN/ creatinine 97/3.6. This is much higher from her baseline. Patient's CT was made noncontrast. Patient did have a Coon that was placed. Patient was not hyperkalemic. Patient's CT of the abdomen pelvis showed diverticulosis without diverticulitis, fecal impaction, as well as colitis. Given the patient's white count and symptoms she may benefit from antibiotics however these were deferred to the inpatient team. I did discuss the patient with the medicine team who agreed to further evaluate and treat the patient. Medication Reconcilliation Current Medication List: was personally reviewed by me Impression Primary Impression: Renal failure Additional Impressions: Dehydration Abdominal pain Fecal impaction in rectum Colitis Diverticulosis Scribe Attestation The scribe's documentation has been prepared under my direction and personally reviewed by me in its entirety. I confirm that the note above accurately reflects all work, treatment, procedures, and medical decision making performed by me. Departure Information Dispostion Being Evaluated By Hospitalist Nasir Horton Tucker (PCP) Forms HOME CARE DOCUMENTATION FORM, IMPORTANT VISIT INFORMATION, WORK / SCHOOL INSTRUCTIONS Patient Instructions My [facility] Problem Qualifiers Primary Impression: Renal failure Renal failure chronicity: acute Acute renal failure type: unspecified Qualified Codes: N17.9 - Acute kidney failure, unspecified Additional Impressions: Abdominal pain Abdominal location: generalized Qualified Codes: R10.84 - Generalized abdominal pain Diverticulosis Diverticulosis site: diverticulosis of large intestine Diverticulosis bleeding: diverticulosis without bleeding Qualified Codes: K57.30 - Diverticulosis of large intestine without perforation or abscess without bleeding
[2017-04-09] MEDS ORDERED: CALC-464 PO ×2 (17:12)
[2017-04-09] MEDS ORDERED: POTA-74 PO ×2 (17:12)
[2017-04-09] MEDS ORDERED: MIRT15TA3 PO ×2 (17:12)
[2017-04-09] MEDS ORDERED: ASPI81TA28 PO ×2 (17:12)
[2017-04-09] MEDS ORDERED: TPRSR25 PO (17:12)
[2017-04-09] MEDS ORDERED: SENN8.6T36 PO (17:20)
--- NOTE | 2017-04-09 18:21 | DIAGNOSTIC IMAGING REPORT ---
CHEST ONE VIEW PORTABLE CLINICAL HISTORY: Weakness. COMPARISON STUDY: Chest CT April 19, 2016 and chest radiograph March 14, 2017. FINDINGS: Note is made of median sternotomy wires and a prosthetic aortic valve. Mild cardiomegaly is unchanged. There is no evidence for pulmonary edema. Right breast surgical clips are noted. Mild left basilar opacity is unchanged. This favors atelectasis. Blunting of the left costophrenic angle is unchanged and likely related to epicardial fat pad. Appearance of the chest is unchanged. There is an old right clavicular fracture and old left-sided rib fractures. IMPRESSION: No acute cardiopulmonary findings. Mild left basilar opacity which favors atelectasis. Electronically signed by: Micheal Danielson M.D. 04/09/2017 6:20 PM Dictated Date/Time: 04/09/2017 6:17 PM
[2017-04-09 18:59] LABS: BASO % 0.1 %; BASO ABS # 0.01 K/uL (0-0.2); EOS % 0.1 %; EOS ABS # 0.02 K/uL (0-0.5); HEMATOCRIT 41.4 % (37-47); HEMOGLOBIN 14.1 g/dL (12.0-16.0); IG# 0.04 K/uL (0.00-0.02); LYMPH % 4.3 %; LYMPH ABS # 0.62 K/uL (1.2-3.4); MEAN CELL VOLUME 94.5 fL (80-100); MEAN CORPUSCULAR HEMOGLOBIN 32.2 pg (25-34); MEAN CORPUSCULAR HGB CONC 34.1 g/dl (32-36); MEAN PLATELET VOLUME 11.1 fL (7.4-10.4); MONO % 9.4 %; MONO ABS # 1.35 K/uL (0.11-0.59); NEUT % 85.8 %; NEUT ABS # 12.29 K/uL (1.4-6.5); PLATELET COUNT 188 K/uL (130-400); RED CELL DISTRIBUTION WIDTH CV 14.5 % (11.5-14.5); WHITE BLOOD COUNT 14.33 K/uL (4.8-10.8)
[2017-04-09 19:51] LABS: PTT PATIENT 28.8 SECONDS (21.0-31.0)
[2017-04-09 19:55] LABS: ALBUMIN 2.7 gm/dl (3.4-5.0); ALT/SGPT 17 U/L (12-78); BLOOD UREA NITROGEN 97 mg/dl (7-18); CALCIUM 9.9 mg/dl (8.5-10.1); CARBON DIOXIDE 22 mmol/L (21-32); CREATININE 3.68 mg/dl (0.60-1.20); GLUCOSE 103 mg/dl (70-99); LIPASE 105 U/L (73-393); POTASSIUM 4.5 mmol/L (3.5-5.1); SODIUM 134 mmol/L (136-145)
[2017-04-09 20:04] LABS: ALKALINE PHOSPHATASE 145 U/L (45-117); AST/SGOT 25 U/L (15-37); TOTAL PROTEIN 7.5 gm/dl (6.4-8.2)
[2017-04-09] MEDS ORDERED: SODIUM CHLORIDE 0.9% 500ML 500 ML IV STA (20:09)
--- NOTE | 2017-04-09 20:22 | DIAGNOSTIC IMAGING REPORT ---
CT SCAN OF THE BRAIN WITHOUT IV CONTRAST CLINICAL HISTORY: Change in mental status. COMPARISON STUDY: CT of the brain dated 02/24/2017. TECHNIQUE: Unenhanced axial CT scan of the brain is performed from the vertex to the skull base. A dose lowering technique was utilized adhering to the principles of ALARA. FINDINGS: Brain parenchyma: There are age-related involutional changes noting mild to moderate subcortical and periventricular microangiopathic change. There is no hemorrhage, mass effect, or evidence of acute territorial ischemia by CT criteria. Mcneil-white matter is preserved. No extra-axial fluid collection is seen. Ventricles, sulci, cisterns: Prominent secondary to involutional change. Intracranial vasculature: There is atherosclerotic calcification of the cavernous carotid and vertebral arteries. Calvarium: Unremarkable. Sinuses and mastoids: The visualized paranasal sinuses are clear. The mastoid air cells are well pneumatized. Orbits: The bony orbits are grossly intact. There are bilateral ocular lens implants. IMPRESSION: Senescent changes as above with no hemorrhage, mass effect, or evidence of acute territorial ischemia by CT criteria. Electronically signed by: Miguelangel Mahoney M.D. 04/09/2017 8:21 PM Dictated Date/Time: 04/09/2017 8:20 PM
--- NOTE | 2017-04-09 20:51 | DIAGNOSTIC IMAGING REPORT ---
CT SCAN OF THE ABDOMEN AND PELVIS WITHOUT IV CONTRAST CLINICAL HISTORY: Generalized abdominal pain. COMPARISON STUDY: Abdominal CT scan dated 03/14/2017 and 11/23/2013. TECHNIQUE: CT scan of the abdomen and pelvis is performed from the lung bases to the proximal femora. Images are reviewed in the axial, sagittal, and coronal planes. IV contrast was not administered for this examination as per the referring clinician. Note that the examination was performed in suboptimal fashion without oral and IV contrast. A dose lowering technique was utilized adhering to the principles of ALARA. The examination is degraded by motion artifact, as well as by streak artifact from the patient's arms which could not be elevated above the abdomen. CT DOSE: 905.94 mGy.cm FINDINGS: Lung bases: Midline sternotomy wires are noted. The heart is mildly enlarged and without pericardial effusion. There are coronary artery calcifications. There is evidence of previous cardiac valve surgery. A tiny hiatal hernia is identified. There is bibasilar scarring versus atelectasis. No airspace consolidation or pleural effusion is seen. Liver: Evaluation of the liver is degraded by streak artifact. The unenhanced liver is normal in size, contour, and attenuation. There is no intrahepatic biliary ductal dilatation. Gallbladder: Surgically absent noting clips in the gallbladder fossa. Spleen: Normal in size and attenuation. Pancreas: The unenhanced pancreas is markedly atrophic and grossly unremarkable. Adrenal glands: Unremarkable. Kidneys: The unenhanced kidneys are atrophic and without hydronephrosis. There are no renal calculi identified. There are numerous bilateral renal cysts. The largest arises from the lower pole the right kidney and measures 5.4 cm. Small complex/hyperdense cysts are noted in the left kidney. These are unchanged from 2014. Abdominal vasculature: The abdominal aorta is normal in course and caliber noting moderate atherosclerotic calcification. Bowel: There is rectosigmoid fecal impaction. Mild stranding suggested around the descending and proximal sigmoid colon. This marrow present a mild colitis. There is only minimal colonic wall thickening. There is mild to moderate colonic diverticulosis without CT evidence of acute diverticulitis. No bowel obstruction is seen. The appendix is not identified. Peritoneum: There is no intraperitoneal free air or abdominal ascites. Lymphadenopathy: None. Pelvic viscera: The bladder is normal as visualized. The uterus is surgically absent. No adnexal lesion is seen. Skeletal structures: The skeletal structures are osteopenic. Degenerative change and scoliosis are noted in the lumbosacral spine. There are chronic compression deformities of L1 and L4. No lytic or blastic lesions are seen. IMPRESSION: 1. Suboptimal examination without oral and IV contrast. The examination is also degraded by streak and motion artifact. 2. Suspect a mild nonspecific colitis of the left colon. This could be on an infectious, inflammatory, or ischemic basis. Clinical correlation will be required. 3. Colonic diverticulosis without CT evidence of acute diverticulitis. 4. Cardiomegaly. 5. There is rectosigmoid fecal impaction. 6. Additional findings as above. Electronically signed by: Miguelangel Mahoney M.D. 04/09/2017 8:50 PM Dictated Date/Time: 04/09/2017 8:44 PM
--- NOTE | 2017-04-09 21:24 | History and Physical ---
History & Physical Date & Time of Service: Apr 09, 2017 at 21:15 Chief Complaint: Lethargic Primary Care Physician: Clay,The History of Present Illness Source: family, hospital records This is an 89 y/o F who presents from the [facility] with dizziness and nausea. History is provided by son. He reports that 3 months ago, she had all of her teeth pulled out and since then there has been a progressive decline in her health. About a month after she stopped taking her meds and starting showing signs of confusion. She was admitted here in Feb for weakness, found to be in Afib and also gabapentin overdose (due to mixing up of meds.) She was sent to . He reports that nausea and dizziness has been a constant problem even after being treated here. Prior to having her teeth pulled, her main concerns were chronic generalized pain. She recently saw Dr. Stout office and she was taken off her blood thinner for concerns that it might be interfering with her meds that control her pain. He reports that today, her mental status seems more altered than usual. He is concerned about her lack of bowel movements. He says that if the appetite is a concern, he would be willing to have a feeding tube placed as she is not eating or drinking anything. She is in the process of getting fitted for dentures. This was also an issue and contributing to her eating issues. He mentions that she maybe having some psychological challenges with having all her teeth removed but wants to make sure there are no organic causes for her dizziness and nausea as those seem to be constant complaints. 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 Family History Omitted secondary to age Social History Smoking Status: Never Smoker Smokeless Tobacco Use: No Alcohol Use: none Drug Use: none Marital Status: single [facility] status[facility] Occupational Status: retired Immunizations History of Influenza Vaccine: Yes Influenza Vaccine Date: Dec 13, 2010 History of Tetanus Vaccine?: Unknown History of Pneumococcal: Yes Pneumococcal Date: Dec 13, 2010 History of Hepatitis B Vaccine: Unknown Multi-Drug Resistant Organisms History of MDRO: No Allergies Coded Allergies: Penicillins (Verified Allergy, Intermediate, RXN = RASH, NO SOB, NO EDEMA PER PATIENT REPORT, 03/20/17) Sulfa Antibiotics (Verified Allergy, Intermediate, RXN = RASH, NO SOB, NO EDEMA PER PATIENT REPORT, 03/20/17) Erythromycin (Verified Allergy, Mild, unknown, 03/20/17) Lidocaine (Verified Allergy, Mild, 03/20/17) Tetracyclines (Verified Allergy, Mild, 03/20/17) Zinc (Verified Allergy, Mild, MADE JAW SORE WITH PASTE FOR DENTURES, ) Morphine (Verified Adverse Reaction, Unknown, SENSITIVE TO MEDICATION, 03/20/17) Home Medications Scheduled Ascorbic Acid (Vitamin C), 500 MG PO QAM Aspirin (Aspirin Ec), 81 MG PO QAM Atorvastatin (Lipitor), 10 MG PO QD@1700 Calcium Carbonate-Cholecalcife (Calcium 500+D 500-200 mg-Unit), 1 TAB PO QAM Furosemide (Lasix), 40 MG PO QAM Gabapentin (Gabapentin), 100 MG PO QPM Ibuprofen (Advil), 400 MG PO AMHS Ibuprofen (Advil), 200 MG PO QD@1200 Ibuprofen (Advil), 200 MG PO QD@1600 Levothyroxine Sodium (Levothyroxine Sodium), 75 MCG PO QAM Lisinopril (Lisinopril), 20 MG PO QAM Memantine Hcl (Namenda Xr), 14 MG PO QPM Metoprolol Succinate (Metoprolol Succinate ER), 25 MG PO QAM Mirtazapine (Remeron), 15 MG PO HS Multivitamins/Minerals (Mvi With Minerals), 1 TAB PO QAM Potassium Chloride (Potassium Chloride Er), 10 MEQ PO QAM Sennosides-Docusate Sodium (Docusate Sodium/Senna), 1 TAB PO QD@1200 Review of Systems ROS, unobtainable Physical Exam Vital Signs Date Time Temp Pulse Resp B/P (MAP) Pulse Ox O2 Delivery O2 Flow Rate FiO2 04/09/17 20:48 82 04/09/17 20:47 82 106/66 93 Room Air 04/09/17 20:28 80 72/51 92 Room Air 04/09/17 19:26 76 18 81/47 93 Room Air 04/09/17 17:05 85 16 108/68 95 Room Air 04/09/17 16:47 77 04/09/17 16:46 94 Room Air 04/09/17 16:20 36.9 76 18 95/58 96 Room Air General Appearance: no apparent distress Eyes: PERRL Respiratory/Chest: no respiratory distress, no accessory muscle use, + decreased breath sounds Cardiovascular: regular rate, rhythm, no edema Abdomen/GI: normal bowel sounds, non tender, soft Extremities/Musculoskelatal: no calf tenderness, no pedal edema Neurologic/Psych: + disoriented Diagnostics Laboratory Results Results Past 24 Hours Test 04/09/17 18:48 Range/Units White Blood Count 14.33 4.8-10.8 K/uL Red Blood Count 4.38 4.2-5.4 M/uL Hemoglobin 14.1 12.0-16.0 g/dL Hematocrit 41.4 37-47 % Mean Corpuscular Volume 94.5 80-100 fL Mean Corpuscular Hemoglobin 32.2 25-34 pg Mean Corpuscular Hemoglobin Concent 34.1 32-36 g/dl Platelet Count 188 130-400 K/uL Mean Platelet Volume 11.1 7.4-10.4 fL Neutrophils (%) (Auto) 85.8 % Lymphocytes (%) (Auto) 4.3 % Monocytes (%) (Auto) 9.4 % Eosinophils (%) (Auto) 0.1 % Basophils (%) (Auto) 0.1 % Neutrophils # (Auto) 12.29 1.4-6.5 K/uL Lymphocytes # (Auto) 0.62 1.2-3.4 K/uL Monocytes # (Auto) 1.35 0.11-0.59 K/uL Eosinophils # (Auto) 0.02 0-0.5 K/uL Basophils # (Auto) 0.01 0-0.2 K/uL RDW Standard Deviation 50.0 36.4-46.3 fL RDW Coefficient of Variation 14.5 11.5-14.5 % Immature Granulocyte % (Auto) 0.3 % Immature Granulocyte # (Auto) 0.04 0.00-0.02 K/uL Prothrombin Time 11.0 9.0-12.0 SECONDS Prothromb Time International Ratio 1.0 0.9-1.1 Activated Partial Thromboplast Time 28.8 21.0-31.0 SECONDS Partial Thromboplastin Ratio 1.1 Venous Blood pH 7.37 7.36-7.41 Venous Blood Partial Pressure CO2 44 38.0-50.0 mmHg Venous Blood Partial Pressure O2 42 mmHg Venous Blood HCO3 25 mmol/L Venous Blood Oxygen Saturation 73.5 % Venous Blood Base Excess -0.8 mEq/L Sodium Level 134 136-145 mmol/L Potassium Level 4.5 3.5-5.1 mmol/L Chloride Level 98 98-107 mmol/L Carbon Dioxide Level 22 21-32 mmol/L Anion Gap 14.0 3-11 mmol/L Blood Urea Nitrogen 97 7-18 mg/dl Creatinine 3.68 0.60-1.20 mg/dl Est Creatinine Clear Calc Drug Dose 8.2 ml/min Estimated GFR () 12.0 Estimated GFR (Non- 10.3 BUN/Creatinine Ratio 26.5 10-20 Random Glucose 103 70-99 mg/dl Lactic Acid Level 1.6 0.4-2.0 mmol/L Calcium Level 9.9 8.5-10.1 mg/dl Magnesium Level 2.9 1.8-2.4 mg/dl Total Bilirubin 0.4 0.2-1 mg/dl Direct Bilirubin 0.2 0-0.2 mg/dl Aspartate Amino Transf (AST/SGOT) 25 15-37 U/L Alanine Aminotransferase (ALT/SGPT) 17 12-78 U/L Alkaline Phosphatase 145 45-117 U/L Troponin I < 0.015 0-0.045 ng/ml Pro-B-Type Natriuretic Peptide 2329 0-1800 pg/ml Total Protein 7.5 6.4-8.2 gm/dl Albumin 2.7 3.4-5.0 gm/dl Lipase 105 73-393 U/L Thyroid Stimulating Hormone (TSH) 0.074 0.300-4.500 uIu/ml Impression Assessment and Plan 89 y/o F with weakness, dizziness and nausea. DERRELL/Dehdyration Cr of 3.68 IVFs repeat Bmp if no improvement, consider renal USG Hold Lisinopril and Furosemide Fecal impaction Colace, Miralax son hesitant about enema Dizziness Orthostatics Head CT negative. Patient is not on anticoagulation anymore so ? possibility of small cvas from Afib- son does not note any new deficits Hydration ?BPPV?- history difficult to obtain Echo in feb 2017- * There is mild concentric left ventricular hypertrophy. * Left ventricular systolic function is normal. * Grade I diastolic dysfunction, (abnormal relaxation pattern). * The right ventricle is mild to moderately dilated. * The right ventricular systolic function is mildly reduced. * The right atrium is moderate to severely dilated. * There is a bioprosthetic aortic valve. * There is severe tricuspid regurgitation. * There is mild mitral regurgitation. * Right ventricular systolic pressure is normal. Lack of appetite/feeding concerns Rn Home Health consult consider appetite stimulant Abnormal u/a Rocephin Urine culture was treated for e.coli UTI at last admission. PAF: Continue metoprolol No longer on Xarelto. GERD - continue pantoprazole Hypothyroidism Tsh of 0.075 decrease dose of Levothyroxine to 50 mcg recheck outpatient Dementia continue memantine Attending addendum: I have physically seen this patient, have supervised the medical residents activities, and agree with the H&P unless as otherwise noted. Assessment and Plan: Dehydration/DERRELL/UTI/orthostatic hypotension/dizziness-- Nothing by mouth status Place on normal saline IV fluids Serial BMP and magnesium levels Ceftriaxone 1 g IV daily and follow urine culture and sensitivity Hold lisinopril, ibuprofen, furosemide and potassium Expect blood pressure and dizziness to improve with hydration Overall declining nutritional state is a contributing factor as well Dementia/metabolic encephalopathy-- Continue Namenda Target is to return to baseline as encephalopathy improves GERD-- Continue pantoprazole Hypothyroidism-- Levothyroxin being decreased from 75-50 g Level of Care Telemetry Advanced Directives Existing Advance Directive: Yes Existing Living Will: Yes Existing Power of Consumer Insight Manager: Yes Resuscitation Status DO NOT RESUSCITATE VTE Prophylaxis VTE Risk Assessment Done? Y/N: Yes Risk Level: High Given or contraindicated: Unfractionated heparin SQ Social Service Consult Lives in Detention
[2017-04-09] MEDS ORDERED: MAGNESIUM HYDROXIDE SUSP 30 ML UDC PO PRN (22:15)
[2017-04-09] MEDS ORDERED: POLYETHYLENE (MIRALAX) 17 GM PACK PO PRN (22:15)
[2017-04-09] MEDS ORDERED: ALUMINUM/MAGNESIUM/SIMETH (MAALOX MAX) 30 ML UDC PO PRN (22:15)
[2017-04-09] MEDS ORDERED: ONDANSETRON INJ 2 MG/ML 2 ML VIAL IV PRN (22:15)
[2017-04-10] VITALS (10 sets, daily range): BP systolic 81–113; BP diastolic 47–73; PULSE 79–130; TEMP 36.5–37; O2SAT 93–97; Ht 157.5 cm; Wt 59.3 kg
[2017-04-10 05:51] LABS: BASO % 0.1 %; BASO ABS # 0.01 K/uL (0-0.2); HEMATOCRIT 36.4 % (37-47); HEMOGLOBIN 12.4 g/dL (12.0-16.0); IG# 0.04 K/uL (0.00-0.02); LYMPH % 4.5 %; LYMPH ABS # 0.63 K/uL (1.2-3.4); MEAN CELL VOLUME 95.3 fL (80-100); MEAN CORPUSCULAR HEMOGLOBIN 32.5 pg (25-34); MEAN CORPUSCULAR HGB CONC 34.1 g/dl (32-36); MEAN PLATELET VOLUME 10.9 fL (7.4-10.4); MONO % 8.6 %; MONO ABS # 1.19 K/uL (0.11-0.59); NEUT % 86.5 %; PLATELET COUNT 187 K/uL (130-400); RED CELL DISTRIBUTION WIDTH CV 14.6 % (11.5-14.5); RED CELL DISTRIBUTION WIDTH SD 50.8 fL (36.4-46.3); WHITE BLOOD COUNT 13.87 K/uL (4.8-10.8)
[2017-04-10] MEDS ORDERED: ONDANSETRON INJ 2 MG/ML 2 ML VIAL IV PRN (06:15)
[2017-04-10] MEDS ORDERED: ALUMINUM/MAGNESIUM/SIMETH (MAALOX MAX) 30 ML UDC PO PRN (06:15)
[2017-04-10] MEDS ORDERED: POLYETHYLENE (MIRALAX) 17 GM PACK PO PRN (06:15)
[2017-04-10 06:24] LABS: CALCIUM 8.9 mg/dl (8.5-10.1); CREATININE 3.44 mg/dl (0.60-1.20); POTASSIUM 3.8 mmol/L (3.5-5.1)
[2017-04-10] MEDS: CEFTRIAXONE SOD INJ 1 GM in DEXTROSE 5% ADD-VANTAGE 50ML 50 ML IV SCH (06:30)
[2017-04-10] MEDS ORDERED: MAGNESIUM HYDROXIDE SUSP 30 ML UDC PO PRN (06:30)
[2017-04-10] MEDS: LEVOTHYROXINE 75 MCG TAB PO SCH (06:36)
--- NOTE | 2017-04-10 07:34 | Family Medicine Progress Note ---
Progress Note Date of Service Apr 10, 2017. Subjective Pt evaluation today including: conversation w/ patient, conversation w/ family , physical exam, chart review, lab review, review of inpatient medication list Pain: Patient communicates by nodding; declined pain when asked PO Intake: Tolerating pureed food Voiding: hanks catheter in place Patient is poor communicator and historian Constitutional: + fatigue Cardiovascular: No chest pain Abdomen: No pain Additional Comments: ROS unable to be attained due to patient's mentation but declines pain or difficulty breathing and states she is tired. Medications Current Inpatient Medications Medications (Trade) Dose Ordered Sig/Sapphire Route Start Time Stop Time Status Last Admin Dose Admin Ioversol (Optiray 320) 100 ml UD PRN IV 04/09/17 17:00 04/13/17 16:59 Docusate Sodium (coLACE SYRUP) 100 mg BID PO 04/10/17 09:00 05/10/17 08:59 04/10/17 09:00 100 MG Polyethylene (Miralax Powder Packet) 17 gm BID PO 04/10/17 09:00 05/10/17 08:59 Ascorbic Acid (Vitamin C Tab) 500 mg QAM PO 04/10/17 09:00 05/10/17 08:59 04/10/17 09:37 500 MG Aspirin (Ecotrin Tab) 81 mg QAM PO 04/10/17 09:00 05/10/17 08:59 04/10/17 09:37 81 MG Atorvastatin Calcium (Lipitor Tab) 10 mg QD@1700 PO 04/10/17 17:00 05/10/17 16:59 04/10/17 18:04 10 MG Gabapentin (Neurontin Cap) 100 mg QPM PO 04/10/17 21:00 05/10/17 20:59 Metoprolol Succinate (Toprol Xl Tab) 25 mg QAM PO 04/10/17 09:00 05/10/17 08:59 Mirtazapine (Remeron Tab) 15 mg HS PO 04/10/17 21:00 05/10/17 20:59 Multivitamins/ Minerals (Multivitamin W/ Minerals Tab) 1 tab QAM PO 04/10/17 09:00 05/10/17 08:59 04/10/17 09:37 1 TAB Senna/Docusate Sodium (Senokot S Tab) 1 tab QD@1200 PO 04/10/17 12:00 05/10/17 11:59 04/10/17 09:38 1 TAB Miscellaneous Information (Order Awaiting Action) 1 ea QS N/A 04/10/17 08:00 05/10/17 07:59 Potassium Chloride (Klor-Con M10) 10 meq QAM PO 04/10/17 09:00 05/10/17 08:59 04/10/17 09:00 10 MEQ Levothyroxine Sodium (Synthroid Tab) 50 mcg DAILYBB PO 04/10/17 06:00 05/10/17 05:59 04/10/17 06:36 50 MCG Ceftriaxone Sodium 1 gm/ Dextrose 50 ml @ 100 mls/hr Q24H IV 04/10/17 06:00 04/15/17 05:59 04/10/17 06:30 100 MLS/HR Ondansetron HCl (Zofran Inj) 4 mg Q6H PRN IV 04/10/17 06:15 05/10/17 06:14 Polyethylene (Miralax Powder Packet) 17 gm DAILY PRN PO 04/10/17 06:15 05/10/17 06:14 Al Hydrox/Mg Hydrox/Simethicone (Maalox Max Susp) 15 ml Q4H PRN PO 04/10/17 06:15 05/10/17 06:14 Heparin Sodium (Porcine) (Heparin Sq 5000 Unit/0.5ml) 5,000 unit Q12 SQ 04/10/17 09:00 05/10/17 08:59 04/10/17 09:48 5,000 UNIT Magnesium Hydroxide (Milk Of Magnesia Susp) 30 ml Q12H PRN PO 04/10/17 06:30 05/10/17 06:29 Sodium Chloride 1,000 ml @ 125 mls/hr Q8H IV 04/10/17 08:45 05/10/17 08:44 04/10/17 11:19 125 MLS/HR Objective Vital Signs Date Time Temp Pulse Resp B/P (MAP) Pulse Ox O2 Delivery O2 Flow Rate FiO2 04/10/17 21:25 123 104/61 (75) 04/10/17 21:23 130 04/10/17 19:20 130 106/61 (76) 04/10/17 16:34 86 108/73 (85) 04/10/17 14:39 37.0 113 18 81/48 (59) 93 Room Air 04/10/17 14:19 36.8 91 16 95 04/10/17 12:00 95 Room Air 04/10/17 12:00 36.8 91 16 113/62 (79) 95 Room Air 04/10/17 08:00 36.8 108 14 95/51 (66) 94 Room Air 04/10/17 08:00 94 Room Air 04/10/17 04:00 37.0 79 14 101/47 (65) 94 Room Air 04/10/17 04:00 94 Room Air 04/10/17 01:13 36.5 87 20 108/73 97 Room Air 04/09/17 23:01 84 110/65 93 04/09/17 22:30 83 20 102/64 04/09/17 22:00 85 19 112/65 Physical Exam General Appearance: WD/WN, no apparent distress Eyes: normal inspection, PERRL, EOMI, sclerae normal ENT: normal ENT inspection, hearing grossly normal, TMs normal, + pertinent finding (dry mucous membranes) Neck: no carotid bruits, trachea midline Respiratory/Chest: chest non-tender, lungs clear, normal breath sounds, no respiratory distress, no accessory muscle use Cardiovascular: regular rate, rhythm, no edema, no JVD, + systolic murmur Abdomen: normal bowel sounds, soft, + tenderness (LLQ and suprapubic) Extremities: non-tender, normal inspection, no pedal edema, no calf tenderness Neurologic/Psychiatric: trust vault clerk II-XII nml as tested, no motor/sensory deficits, alert, + disoriented (oriented to self) Skin: normal color, warm/dry, + pertinent finding (poor skin turgor) Laboratory Results Last Resulted 04/10/17 05:21 Red Blood Count 3.82, Mean Corpuscular Volume 95.3, Mean Corpuscular Hemoglobin 32.5, Mean Corpuscular Hemoglobin Concent 34.1, Mean Platelet Volume 10.9, Neutrophils (%) (Auto) 86.5, Lymphocytes (%) (Auto) 4.5, Monocytes (%) (Auto) 8.6, Eosinophils (%) (Auto) 0.0, Basophils (%) (Auto) 0.1, Neutrophils # (Auto) 12.00, Lymphocytes # (Auto) 0.63, Monocytes # (Auto) 1.19, Eosinophils # (Auto) 0.00, Basophils # (Auto) 0.01 Last Resulted 04/10/17 05:21 Past 24 Hours Test 04/10/17 21:25 Range/Units Assessment and Plan 89 y/o F, PMH CHF, HLD, HTN, Atherosclerosis, dementia, hypothyroidism admitted for DERRELL/Dehydration and fecal impaction. Patient has recent hx of weakness, dizziness and nausea, over the past 3 months since she had her teeth removed for future denture placement Acute on chronic kidney failure/Dehdyration -Cr of 3.68 on admission, improved to 3.44 with 500mL bolus. -2nd 500mL bolus given with continuous NSS at 125/hr -Repeat BMP at midnight and with morning labs -If no improvement, consider renal USG -Hold Lisinopril and Furosemide Fecal impaction -Colace, Miralax, Senna -Enema ordered today -May need to manually disimpact Dizziness -Orthostatics -Head CT negative. However, patient is not on anticoagulation anymore so ? possibility of small cvas from Afib- son does not note any new deficits -Hydration -Based on symptoms son reports, she does not report room spinning, but more lightheaded/orthostatic picture -Echo in feb 2017: * There is mild concentric left ventricular hypertrophy, Grade I diastolic dysfunction, (abnormal relaxation pattern).The right ventricle is mild to moderately dilated. * The right ventricular systolic function is mildly reduced, The right atrium is moderate to severely dilated.There is a bioprosthetic aortic valve.There is severe tricuspid regurgitation. There is mild mitral regurgitation. Chronic generalized and back pain -unable to use NSAIDs as she had been on before in like of DERRELL -ESR ordered for tomorrow -voltaren gel if she can identify specific source of pain Lack of appetite/feeding concerns -Resident Care Coordinator consult -consider appetite stimulant Abnormal u/a -Rocephin -Urine culture -was treated for e.coli UTI at last admission. PAF: -Continue metoprolol -No longer on Xarelto. GERD - continue pantoprazole Hypothyroidism -Tsh of 0.075 -decrease dose of Levothyroxine to 50 mcg recheck outpatient Dementia -continue memantine Code: DNR Dispo: Tele DVTP: heparin Resident Physician Supervision Note: I interviewed and examined the patient. Discussed with Dr. Kirkland and agree with findings and plan as documented in the note. Any exceptions or clarifications are listed here: None Documented By: Alexander Samayoa no meaningful HPI or ROS from pt. son reiterates HPI of her current situation - seems to have had failure to thrive since teeth came out. she loosely relates to the son that her dizziness is a ligthheaded not a room spinning. son perseverates about her middle ear and wonders if that could be could be causing her dizziness. notes also that she hasn't been eating or drinking much since her teeth were pulled. did better in hospital and [facility], then back at the [facility] she was failure to thrive again once she was in independent living. discussed fecal impaction - he was refusing to let her have enema because she asked for one before. notes that she has frequent loose stools and incontinence. chronic pain - takes NSAIDs. she describes to son as "all over" but then appears worst in low back. tried tylenol, didn't help, then resumed NSAIDs. son doesn't know how much she might take when she's independent. notes ongoing nausea as well, not much as far as clarifying and qualifying factors vitals noted, fatigued appearing, no respiratory distress, no focal neuro deficits. failure to thrive - central theme of her illness. appears that change in diet/ pulling teeth+ dementia + "creature of habit" causing poor overall intake especially when not supervised. will need to treat all of below, but for this, will ask optical instrument assembly supervisor and speech for assistance. likely will need supervised setting for a while, at least to ensure adequate PO intake, even once discharged from hospital and/or subacute if necessary ARF - apperaing dehydration related. poor PO intake. may also be elements of NSAID induced renal injury. improving w hydration - continue to follow as may be ATN - with duration of dehydration coupled w NSAIDs, if this were the case, then situation would be much more worrisome. continue fluids, continue to follow BMP and hydration status fecal impaction - enema, then bowel regimen. suspect chronic loose stools and incontinence is actually overflow mechanism from chronic constipation chronic nausea - may all relate to chronic constipation. may also be elements of NSAID induced UGI pathology - certainly no evidence of bleeding ulcer or other catastrophes, but will need to follow closely and treat for any/all causative factors dizziness - given her run of failure to thrive, low BP at PCP's office, poor PO intake, current and past dehydration - seems most likely that vasoactive mechanisms are at play with the dizziness. explained to son extensively. he was also concerned about middle ear - doubt this would be the case given significant evidence pointing towards a more vasoactive dizziness. will treat for what it appears to be, then if she's still having dizziness will revisit middle ear more extensively. discussed also with treatment for middle ear typically being antihistamines for labarynthitis or diuretics for meniere's that significant harm could be caused with empiric treatment for what does not currently appear to be at play. DVT proph - heparin SQ >30mins face to face Resident Tracking Resident Involvement: Resident Care Provided Care Provided: Adult Hospital Medicine
[2017-04-10] MEDS ORDERED: SODIUM CHLORIDE 0.9% 500ML 500 ML IV ONE (07:45)
[2017-04-10] MEDS: SODIUM CHLORIDE 0.9% 1000ML 1,000 ML IV SCH ×3 (08:15→22:42)
[2017-04-10] MEDS: POLYETHYLENE (MIRALAX) 17 GM PACK PO SCH ×2 (09:00→20:13)
[2017-04-10] MEDS ORDERED: HEPARIN SOD 5000 UNIT/0.5 ML CARP SQ SCH (09:00)
[2017-04-10] MEDS: METOPROLOL SUCC 25MG EXT REL TAB PO SCH (09:00)
[2017-04-10] MEDS: DOCUSATE SODIUM 100 MG/10 ML UDC PO SCH ×2 (09:00→20:00)
[2017-04-10] MEDS: POTASSIUM CHLORIDE 10 MEQ TABCR PO SCH (09:00)
[2017-04-10] MEDS: ASCORBIC ACID 500 MG TAB PO SCH (09:37)
[2017-04-10] MEDS: CEROVITE ADV FORMULA TAB PO SCH (09:37)
[2017-04-10] MEDS: ASPIRIN 81 MG ECTAB PO SCH (09:37)
[2017-04-10] MEDS: DOCUSATE SODIUM/SENNA 50/8.6MG TAB PO SCH (09:38)
[2017-04-10] MEDS: HEPARIN SOD 5000 UNIT/0.5 ML CARP SQ SCH ×2 (09:48→20:17)
[2017-04-10] MEDS ORDERED: SOD PHOSPHATE/SOD BIPHOSPHATE ENEMA 132 ML BTL PR ONE (15:00)
[2017-04-10] MEDS: ATORVASTATIN 10 MG TAB PO SCH (18:04)
[2017-04-10] MEDS: GABAPENTIN 100 MG CAP PO SCH (20:14)
[2017-04-10] MEDS: MIRTAZAPINE TAB 15 MG TAB PO SCH (20:14)
[2017-04-10] MEDS ORDERED: DIGOXIN INJ 500 MCG/2 ML AMP ONE (21:19)
[2017-04-10] MEDS ORDERED: NURSING VERBAL MED ORDER ONE (21:30)
--- NOTE | 2017-04-10 22:35 | Progress Note ---
Progress Note Date of Service Apr 10, 2017. Progress Note Code purple: Roughly 8:45 pm Patient supposedly was trying to use the restroom with the help of nurse and felt like she was going to pass out When she came out of the rest room, she collapsed and was caught by the aide. She was unresponsive for about 45 secs. When I arrived, the patient was responsive and at her baseline (seen on admission yesterday). Patient has h/o Afib on last admission and is on metoprolol Was taken off Xarelto. HR: 140's, b/p : 85/50s denies chest pain, shortness of breath O2 sat - 86%, placed on 2 L Ekg: Afib with RVR Given 500 ml Bolus NSS + 1 L bolus- repeat B/P 100's /60's 5 mg of Metoprolol rate dropped to 120's-130's Transferred to Tele Labs/lytes checked- potassium of 2.9 replaced Given 0.25 mg of Digoxin rate remains in low 100's No further dig given due to ARF- check dig level Converted to NSR bow repairer custom.
[2017-04-11] VITALS (7 sets, daily range): BP systolic 107–141; BP diastolic 52–83; PULSE 81–108; TEMP 36.7–37.3; O2SAT 91–96
[2017-04-11 00:33] LABS: CALCIUM 7.8 mg/dl (8.5-10.1); POTASSIUM 2.9 mmol/L (3.5-5.1)
[2017-04-11] MEDS ORDERED: POTASSIUM CHLR 20 MEQ / WTR 10 MEQ in PREMIXED WATER 100 ML IV SCH (00:48)
[2017-04-11] MEDS: POTASSIUM CHLR 10MEQ / WTR IV SCH ×4 (01:03→04:19)
[2017-04-11] MEDS ORDERED: AMIODARONE IV BOLUS / DRIP IV STA (02:41)
[2017-04-11] MEDS ORDERED: AMIODARONE / D5W 100 ML IV SCH (03:00)
[2017-04-11] MEDS ORDERED: AMIODARONE / D5W 200 ML IV SCH ×2 (03:10→09:10)
[2017-04-11] MEDS ORDERED: NURSING VERBAL MED ORDER ONE (03:15)
[2017-04-11] MEDS: CEFTRIAXONE SOD INJ 1 GM in DEXTROSE 5% ADD-VANTAGE 50ML 50 ML IV SCH (05:49)
[2017-04-11] MEDS: LEVOTHYROXINE 75 MCG TAB PO SCH (05:51)
--- NOTE | 2017-04-11 06:59 | Clinical Documentation Query ---
CHARLOTTE Benítez : CLINICAL DOCUMENTATION QUERIES QUERY 1 OF 2 Patient is an 89 year old female admitted for evaluation and treatment of DERRELL, dizziness, generalized pain, and lack of appetite/feeding concerns. Noted to have had all teeth extracted 3 months ago per son. Weight per EMR of 67.4 Kg on 02/27/17. Weight as low as 56.5 Kg on this admission. This represents a 16% reduction in body weight over this interval. Historical EMR weights taken prior to teeth extraction in the vicinity of 70-73 Kg. Merchandise Stocker noted consumption of an estimated 0-25% of meals, reported loss of appetite. In your clinical opinion is this patient being managed for: ( ) Severe protein-calorie malnutrition (x ) Not Agree ( ) Other explanation of clinical findings (Please Explain) ( ) Unable to determine (Please Define) ( ) Need to Discuss The medical record reflects the following clinical findings, treatment, and risk factors. Clinical Indicators: As above Treatment: Merchandise Stocker consultation, labs, daily weights, I/O, pureed diet. Risk Factors: Age, edentulous QUERY 2 OF 2 Documentation includes "abnormal u/a". Culture is pending. She is being treated with IV Rocephin. As appropriate, consider documentation of the condition you are actively treating, whether known or suspected, until such time that it is ruled in or out. Documentation can be accordingly altered from that point forward. In your clinical opinion is this patient being managed for: ( x ) (Possible/Suspected) Urinary tract infection ( ) Not Agree ( ) Other explanation of clinical findings (Please Explain) ( ) Unable to determine (Please Define) ( ) Need to Discuss The medical record reflects the following clinical findings, treatment, and risk factors. Clinical Indicators: As above Treatment: UA, culture and sensitivity, IV Rocephin Risk Factors: Age, gender, dementia, limited mobility, dehydration Please clarify and document your clinical opinion in the progress notes and discharge summary. Terms such as "probable", "suspected", "likely", "questionable", "possible", or "still to be ruled out" are acceptable. IF IN AGREEMENT, YOU MUST DOCUMENT ABOVE DIAGNOSTIC STATEMENT IN DAILY PROGRESS NOTES AND DISCHARGE SUMMARY. This document is not part of the patient's record. Thank You, Valdez Ortega, KALI [phone]
--- NOTE | 2017-04-11 07:01 | Clinical Documentation Query ---
DIDIER Raygoza : CLINICAL DOCUMENTATION QUERIES QUERY 1 OF 2 Patient is an 89 year old female admitted for evaluation and treatment of DERRELL, dizziness, generalized pain, and lack of appetite/feeding concerns. Noted to have had all teeth extracted 3 months ago per son. Weight per EMR of 67.4 Kg on 02/27/17. Weight as low as 56.5 Kg on this admission. This represents a 16% reduction in body weight over this interval. Historical EMR weights taken prior to teeth extraction in the vicinity of 70-73 Kg. Retail Leader noted consumption of an estimated 0-25% of meals, reported loss of appetite. D In your clinical opinion is this patient being managed for: ( x ) Severe protein-calorie malnutrition ( ) Not Agree ( ) Other explanation of clinical findings (Please Explain) ( ) Unable to determine (Please Define) ( ) Need to Discuss The medical record reflects the following clinical findings, treatment, and risk factors. Clinical Indicators: As above Treatment: Retail Leader consultation, labs, daily weights, I/O, pureed diet. Risk Factors: Age, edentulous QUERY 2 OF 2 Documentation includes "abnormal u/a". Culture is pending. She is being treated with IV Rocephin. As appropriate, consider documentation of the condition you are actively treating, whether known or suspected, until such time that it is ruled in or out. Documentation can be accordingly altered from that point forward. In your clinical opinion is this patient being managed for: ( x ) (Possible/Suspected) Urinary tract infection ( ) Not Agree ( ) Other explanation of clinical findings (Please Explain) ( ) Unable to determine (Please Define) ( ) Need to Discuss The medical record reflects the following clinical findings, treatment, and risk factors. Clinical Indicators: As above Treatment: UA, culture and sensitivity, IV Rocephin Risk Factors: Age, gender, dementia, limited mobility, dehydration Please clarify and document your clinical opinion in the progress notes and discharge summary. Terms such as "probable", "suspected", "likely", "questionable", "possible", or "still to be ruled out" are acceptable. IF IN AGREEMENT, YOU MUST DOCUMENT ABOVE DIAGNOSTIC STATEMENT IN DAILY PROGRESS NOTES AND DISCHARGE SUMMARY. This document is not part of the patient's record. Thank You, Valdez Ortega, KALI [phone]
[2017-04-11 08:39] LABS: BASO % 0.1 %; BASO ABS # 0.01 K/uL (0-0.2); EOS % 0.4 %; EOS ABS # 0.03 K/uL (0-0.5); HEMATOCRIT 31.1 % (37-47); HEMOGLOBIN 10.3 g/dL (12.0-16.0); IG# 0.02 K/uL (0.00-0.02); LYMPH % 8.3 %; LYMPH ABS # 0.63 K/uL (1.2-3.4); MEAN CELL VOLUME 96.3 fL (80-100); MEAN CORPUSCULAR HEMOGLOBIN 31.9 pg (25-34); MEAN CORPUSCULAR HGB CONC 33.1 g/dl (32-36); MEAN PLATELET VOLUME 10.4 fL (7.4-10.4); MONO % 8.7 %; MONO ABS # 0.66 K/uL (0.11-0.59); NEUT % 82.2 %; NEUT ABS # 6.26 K/uL (1.4-6.5); PLATELET COUNT 150 K/uL (130-400); RED CELL DISTRIBUTION WIDTH CV 14.9 % (11.5-14.5); RED CELL DISTRIBUTION WIDTH SD 52.5 fL (36.4-46.3); WHITE BLOOD COUNT 7.61 K/uL (4.8-10.8)
[2017-04-11] MEDS: SODIUM CHLORIDE 0.9% 1000ML 1,000 ML IV SCH ×3 (08:42→23:57)
[2017-04-11] MEDS: ASCORBIC ACID 500 MG TAB PO SCH (08:42)
[2017-04-11] MEDS: POTASSIUM CHLORIDE 10 MEQ TABCR PO SCH (08:42)
[2017-04-11] MEDS: ASPIRIN 81 MG ECTAB PO SCH (08:43)
[2017-04-11] MEDS: CEROVITE ADV FORMULA TAB PO SCH (08:43)
[2017-04-11] MEDS: DOCUSATE SODIUM/SENNA 50/8.6MG TAB PO SCH (08:43)
[2017-04-11] MEDS: METOPROLOL SUCC 25MG EXT REL TAB PO SCH (08:43)
[2017-04-11] MEDS: DOCUSATE SODIUM 100 MG/10 ML UDC PO SCH ×2 (08:44→20:56)
[2017-04-11] MEDS: POLYETHYLENE (MIRALAX) 17 GM PACK PO SCH ×2 (08:44→20:57)
[2017-04-11] MEDS: HEPARIN SOD 5000 UNIT/0.5 ML CARP SQ SCH ×2 (08:48→20:58)
[2017-04-11 09:07] LABS: CALCIUM 8.3 mg/dl (8.5-10.1); CREATININE 1.62 mg/dl (0.60-1.20); POTASSIUM 3.7 mmol/L (3.5-5.1)
[2017-04-11] MEDS ORDERED: MILK AND MOLASSES ENEMA PR SCH (10:45)
[2017-04-11] MEDS ORDERED: METOPROLOL TARTRATE 1 MG/ML VIAL IV PRN (11:15)
--- NOTE | 2017-04-11 13:05 | DIAGNOSTIC IMAGING REPORT ---
KUB HISTORY: fecal impaction, assess colon distention COMPARISON: Abdomen and pelvis CT 04/09/2017. FINDINGS: Moderate to large stool ball seen within the rectum is again noted. Gas-filled colon which is not significantly distended. This measures up to 4.8 cm diameter. There are few nondilated gas-filled loops of small bowel. Cholecystectomy. No renal calculi. No ureteral calculi. No pneumoperitoneum or pneumatosis. IMPRESSION: 1. Moderate to large stool ball is again identified within the rectum. 2. Nondilated gas-filled loops of large and small bowel. No evidence for bowel obstruction at this time. Electronically signed by: Dhruv Crocker M.D. 04/11/2017 1:04 PM Dictated Date/Time: 04/11/2017 12:57 PM
[2017-04-11] MEDS: DICLOFENAC SOD 1% GEL 100 GM TUBE EXT SCH ×3 (16:11→20:56)
[2017-04-11] MEDS: ATORVASTATIN 10 MG TAB PO SCH (16:24)
--- NOTE | 2017-04-11 16:30 | Family Medicine Progress Note ---
Progress Note Date of Service Apr 11, 2017. Subjective Pt evaluation today including: conversation w/ patient, conversation w/ family , physical exam, chart review, lab review, review of studies, review of inpatient medication list Pain: Patient c/o rectal pain PO Intake: poor appetite, per nursing and family Voiding: hanks catheter in place Patient poor historian, however, continually reports "it hurts" and when prompted replied "rectum pain" Abdomen: + pain, + constipation Additional Comments: Patient is poor historian due to dementia Medications Current Inpatient Medications Medications (Trade) Dose Ordered Sig/Sapphire Route Start Time Stop Time Status Last Admin Dose Admin Ioversol (Optiray 320) 100 ml UD PRN IV 04/09/17 17:00 04/13/17 16:59 Docusate Sodium (coLACE SYRUP) 100 mg BID PO 04/10/17 09:00 05/10/17 08:59 04/11/17 20:56 100 MG Polyethylene (Miralax Powder Packet) 17 gm BID PO 04/10/17 09:00 05/10/17 08:59 04/11/17 20:57 17 GM Ascorbic Acid (Vitamin C Tab) 500 mg QAM PO 04/10/17 09:00 05/10/17 08:59 04/11/17 08:42 500 MG Aspirin (Ecotrin Tab) 81 mg QAM PO 04/10/17 09:00 05/10/17 08:59 04/11/17 08:43 81 MG Atorvastatin Calcium (Lipitor Tab) 10 mg QD@1700 PO 04/10/17 17:00 05/10/17 16:59 04/11/17 16:24 10 MG Gabapentin (Neurontin Cap) 100 mg QPM PO 04/10/17 21:00 05/10/17 20:59 04/11/17 20:56 100 MG Metoprolol Succinate (Toprol Xl Tab) 25 mg QAM PO 04/10/17 09:00 05/10/17 08:59 04/11/17 08:43 25 MG Mirtazapine (Remeron Tab) 15 mg HS PO 04/10/17 21:00 05/10/17 20:59 04/11/17 20:56 15 MG Multivitamins/ Minerals (Multivitamin W/ Minerals Tab) 1 tab QAM PO 04/10/17 09:00 05/10/17 08:59 12/29/17 08:43 1 TAB Senna/Docusate Sodium (Senokot S Tab) 1 tab QD@1200 PO 04/10/17 12:00 05/10/17 11:59 04/11/17 08:43 1 TAB Miscellaneous Information (Order Awaiting Action) 1 ea QS N/A 04/10/17 08:00 05/10/17 07:59 Potassium Chloride (Klor-Con M10) 10 meq QAM PO 04/10/17 09:00 05/10/17 08:59 04/11/17 08:42 10 MEQ Levothyroxine Sodium (Synthroid Tab) 50 mcg DAILYBB PO 04/10/17 06:00 05/10/17 05:59 04/11/17 05:51 50 MCG Ceftriaxone Sodium 1 gm/ Dextrose 50 ml @ 100 mls/hr Q24H IV 04/10/17 06:00 04/15/17 05:59 04/11/17 05:49 100 MLS/HR Ondansetron HCl (Zofran Inj) 4 mg Q6H PRN IV 04/10/17 06:15 05/10/17 06:14 Polyethylene (Miralax Powder Packet) 17 gm DAILY PRN PO 04/10/17 06:15 05/10/17 06:14 Al Hydrox/Mg Hydrox/Simethicone (Maalox Max Susp) 15 ml Q4H PRN PO 04/10/17 06:15 05/10/17 06:14 Heparin Sodium (Porcine) (Heparin Sq 5000 Unit/0.5ml) 5,000 unit Q12 SQ 04/10/17 09:00 05/10/17 08:59 04/11/17 20:58 5,000 UNIT Magnesium Hydroxide (Milk Of Magnesia Susp) 30 ml Q12H PRN PO 04/10/17 06:30 05/10/17 06:29 Sodium Chloride 1,000 ml @ 125 mls/hr Q8H IV 04/10/17 08:45 05/10/17 08:44 04/11/17 16:24 125 MLS/HR Metoprolol Tartrate (Lopressor Iv) 5 mg ONE PRN IV 04/11/17 11:15 05/11/17 11:14 Diclofenac Sodium (Voltaren 1% Top Gel) 1 appln QID EXT 04/11/17 13:00 05/11/17 12:59 04/11/17 20:56 1 APPLN Miscellaneous Medication (Milk And Molasses Enema) 1 ea Q1H PRN DE 04/11/17 19:15 05/11/17 19:14 Objective Vital Signs Date Time Temp Pulse Resp B/P (MAP) Pulse Ox O2 Delivery O2 Flow Rate FiO2 04/11/17 20:00 Room Air 04/11/17 19:34 36.7 88 16 128/61 (83) 95 04/11/17 16:00 Room Air 04/11/17 15:39 36.9 98 16 136/55 (82) 94 04/11/17 12:05 Room Air 04/11/17 12:00 Room Air 04/11/17 10:49 36.7 88 19 141/62 (88) 93 Room Air 04/11/17 08:34 37.2 81 19 117/52 (73) 91 Nasal Cannula 4.0 04/11/17 08:00 Room Air 04/11/17 04:54 36.7 108 20 136/83 (100) 96 Nasal Cannula 4.0 04/11/17 04:00 Nasal Cannula 4.0 04/11/17 00:50 37.3 102 24 107/64 (78) 95 Nasal Cannula 4.0 04/10/17 23:59 Nasal Cannula 4.0 Physical Exam General Appearance: WD/WN, + mild distress Eyes: normal inspection, EOMI, sclerae normal ENT: normal ENT inspection, hearing grossly normal, TMs normal Neck: supple, no JVD, no carotid bruits, trachea midline Cardiovascular: regular rate, rhythm, no edema, no gallop, no JVD, + systolic murmur Abdomen: normal bowel sounds, soft, + tenderness (LLQ and suprapubic) Extremities: no pedal edema Neurologic/Psychiatric: vender II-XII nml as tested, no motor/sensory deficits, alert, + disoriented (oriented to self) Skin: normal color, + pertinent finding (poor skin turgor) Laboratory Results Last Resulted 04/11/17 08:12 Red Blood Count 3.23, Mean Corpuscular Volume 96.3, Mean Corpuscular Hemoglobin 31.9, Mean Corpuscular Hemoglobin Concent 33.1, Mean Platelet Volume 10.4, Neutrophils (%) (Auto) 82.2, Lymphocytes (%) (Auto) 8.3, Monocytes (%) (Auto) 8.7, Eosinophils (%) (Auto) 0.4, Basophils (%) (Auto) 0.1, Neutrophils # (Auto) 6.26, Lymphocytes # (Auto) 0.63, Monocytes # (Auto) 0.66, Eosinophils # (Auto) 0.03, Basophils # (Auto) 0.01 Last Resulted 04/11/17 08:12 Assessment and Plan 89 y/o F, PMH CHF, HLD, HTN, Atherosclerosis, dementia, hypothyroidism admitted for DERRELL/Dehydration and fecal impaction. Patient has recent hx of weakness, dizziness and nausea, over the past 3 months since she had her teeth removed for future denture placement. Patient's kidneys have responded well to IVF. Manual disimpaction followed by enema has helped stimulate her bowels. Acute on chronic kidney failure/Dehdyration -Cr of 3.68 on admission, improved to 1.66 with IVF -Continuous NSS at 125/hr -Repeat BMP daily -Hold Lisinopril and Furosemide Fecal impaction -Colace, Miralax, Senna -Initial enema provided no relief -Performed manual disimpaction this afternoon with moderate amount of stool removed. -Started milk and molasses enema q1h prn Dizziness -Orthostatics -Head CT negative. However, patient is not on anticoagulation anymore so ? possibility of small cvas from Afib- son does not note any new deficits -Hydration -Based on symptoms son reports, she does not report room spinning, but more lightheaded/orthostatic picture -Echo in feb 2017: * There is mild concentric left ventricular hypertrophy, Grade I diastolic dysfunction, (abnormal relaxation pattern).The right ventricle is mild to moderately dilated. * The right ventricular systolic function is mildly reduced, The right atrium is moderate to severely dilated.There is a bioprosthetic aortic valve.There is severe tricuspid regurgitation. There is mild mitral regurgitation. Chronic generalized and back pain -unable to use NSAIDs as she had been on before in light of DERRELL -ESR 54 -voltaren gel for lower back Lack of appetite/feeding concerns -Difficult to ascertain whether purely protein caloric intake deficiency, although history from son would indicate that -BMI remains within normal range, albumin deficient but not critically low, weights have fluctuated by 5 - 13 pounds day to day during this visit -Chronic dehydration and constipation in setting of edentulous patient are clear causes for symptoms, and our current plan is to address these factors. -Goal is that with constipation corrected and in the future if she is able to get dentures fitted, this will greatly improve QOL -thus will not categorize her at this time with "severe caloric deficient malnutrition" -Hotel Registration Clerk consult -consider appetite stimulant Abnormal u/a, possibly e. coli UTI -Rocephin -was treated for e.coli UTI at last admission, growing gram neg bacilli on culture prelim PAF: -Continue metoprolol -No longer on Xarelto but discussion needs to be had with son regarding her annual risk of stroke and the need to be on therapy as outpatient -Reiterate that medications like xarelto would be unlikely to cause symptoms she has experienced. -CHADSVASC of 5 gives her 7% annual risk of stroke GERD - continue pantoprazole Hypothyroidism -Tsh of 0.075, free T4 nl at 1.38 -decreased dose of Levothyroxine to 50 mcg; consider increasing dose back to normal if comfortable -recheck as outpatient Dementia -continue memantine Code: DNR Dispo: Tele DVTP: heparin Resident Physician Supervision Note: I interviewed and examined the patient. Discussed with Dr. Kirkland and agree with findings and plan as documented in the note. Any exceptions or clarifications are listed here: None Documented By: Alexander Samayoa more talkative, bellly hurts and feels like she has to have a BM but won't come out. discussed impaction she and son consent for manual disimpaction vitals noted fatigued and apppearing intermittently uncomfortable w belly pain. abd soft nd but diffusely exquisitely tender no guarding/rebound no significant distention. dr kirkland disimpacted for significant amount of stool under my direct supervision failure to thrive - central theme of her illness. appears that change in diet/ pulling teeth+ dementia + "creature of habit" causing poor overall intake especially when not supervised. will need to treat all of below, but for this, will ask user interface designer and speech for assistance. likely will need supervised setting for a while, at least to ensure adequate PO intake, even once discharged from hospital and/or subacute if necessary. son agrees that independent setting likely not good for her senior care ARF - apperaing dehydration related. improving w fluids fecal impaction - disimpaction, then enemas, then bowel regiment to prevent recurrence chronic nausea - may all relate to chronic constipation. may also be elements of NSAID induced UGI pathology - certainly no evidence of bleeding ulcer or other catastrophes, but will need to follow closely and treat for any/all causative factors. no changes today dizziness - almost certainly "vasoactive' between dehydration, BP meds, and now also appears possibly PAF may play a role. follow as she improves. if this does not improve, then she would warratn further w/u - see d/w son 04/10 regarding inner ear - but seems unlikely DVT proph - heparin SQ Resident Tracking Resident Involvement: Resident Care Provided Care Provided: Adult Hospital Medicine
[2017-04-11] MEDS ORDERED: MILK AND MOLASSES ENEMA PR PRN (19:15)
[2017-04-11] MEDS: MIRTAZAPINE TAB 15 MG TAB PO SCH (20:56)
[2017-04-11] MEDS: GABAPENTIN 100 MG CAP PO SCH (20:56)
[2017-04-12 00:17] VITALS: BP 149/90; PULSE 109; TEMP 36.7; O2SAT 95
[2017-04-12 05:06] VITALS: BP 137/91; PULSE 86; TEMP 37.2; O2SAT 96
[2017-04-12] MEDS: CEFTRIAXONE SOD INJ 1 GM in DEXTROSE 5% ADD-VANTAGE 50ML 50 ML IV SCH (06:09)
[2017-04-12] MEDS: LEVOTHYROXINE 50 MCG TAB PO SCH (06:26)
[2017-04-12 08:19] LABS: HEMATOCRIT 30.7 % (37-47); HEMOGLOBIN 10.1 g/dL (12.0-16.0); MEAN CELL VOLUME 96.2 fL (80-100); MEAN CORPUSCULAR HEMOGLOBIN 31.7 pg (25-34); MEAN CORPUSCULAR HGB CONC 32.9 g/dl (32-36); MEAN PLATELET VOLUME 10.1 fL (7.4-10.4); PLATELET COUNT 190 K/uL (130-400); WHITE BLOOD COUNT 6.19 K/uL (4.8-10.8)
[2017-04-12 08:25] VITALS: BP 153/98; PULSE 86; TEMP 36.8; O2SAT 94
[2017-04-12] MEDS: METOPROLOL SUCC 25MG EXT REL TAB PO SCH (08:28)
[2017-04-12] MEDS: CEROVITE ADV FORMULA TAB PO SCH (08:28)
[2017-04-12] MEDS: SODIUM CHLORIDE 0.9% 1000ML 1,000 ML IV SCH (08:29)
[2017-04-12] MEDS: ASPIRIN 81 MG ECTAB PO SCH (08:29)
[2017-04-12] MEDS: POLYETHYLENE (MIRALAX) 17 GM PACK PO SCH ×4 (08:29→21:16)
[2017-04-12] MEDS: ASCORBIC ACID 500 MG TAB PO SCH (08:29)
[2017-04-12] MEDS: POTASSIUM CHLORIDE 10 MEQ TABCR PO SCH (08:29)
[2017-04-12] MEDS: DOCUSATE SODIUM 100 MG/10 ML UDC PO SCH ×4 (08:30→21:16)
[2017-04-12] MEDS: DICLOFENAC SOD 1% GEL 100 GM TUBE EXT SCH ×5 (08:38→18:19)
[2017-04-12] MEDS: HEPARIN SOD 5000 UNIT/0.5 ML CARP SQ SCH ×2 (08:43→21:17)
[2017-04-12 08:59] LABS: CALCIUM 8.7 mg/dl (8.5-10.1)
[2017-04-12 09:00] LABS: POTASSIUM 3.1 mmol/L (3.5-5.1)
--- NOTE | 2017-04-12 10:40 | Family Medicine Progress Note ---
Progress Note Date of Service Apr 12, 2017. Subjective Pt evaluation today including: conversation w/ patient (pt somewhat somnolent and looks down, reports feeling some belly pain. Reports no issues having gotten up to get cleaned after having a bowel movement in bed. Per nurse, she is moving her bowels very well now, so much so that colace and miralax deferred this AM dose.), physical exam, chart review, lab review Voiding: hanks catheter in place (cloudy, yellow) Constitutional: + fatigue Respiratory: No cough Cardiovascular: No chest pain Abdomen: + pain (diffuse. Pt unable to characterize.) Medications Current Inpatient Medications Medications (Trade) Dose Ordered Sig/Sapphire Route Start Time Stop Time Status Last Admin Dose Admin Ioversol (Optiray 320) 100 ml UD PRN IV 04/09/17 17:00 04/13/17 16:59 Docusate Sodium (coLACE SYRUP) 100 mg BID PO 04/10/17 09:00 05/10/17 08:59 04/12/17 08:30 100 MG Polyethylene (Miralax Powder Packet) 17 gm BID PO 04/10/17 09:00 05/10/17 08:59 04/12/17 08:29 17 GM Ascorbic Acid (Vitamin C Tab) 500 mg QAM PO 04/10/17 09:00 05/10/17 08:59 04/12/17 08:29 500 MG Aspirin (Ecotrin Tab) 81 mg QAM PO 04/10/17 09:00 05/10/17 08:59 04/12/17 08:29 81 MG Atorvastatin Calcium (Lipitor Tab) 10 mg QD@1700 PO 04/10/17 17:00 05/10/17 16:59 04/11/17 16:24 10 MG Gabapentin (Neurontin Cap) 100 mg QPM PO 04/10/17 21:00 05/10/17 20:59 04/11/17 20:56 100 MG Metoprolol Succinate (Toprol Xl Tab) 25 mg QAM PO 04/10/17 09:00 05/10/17 08:59 04/12/17 08:28 25 MG Mirtazapine (Remeron Tab) 15 mg HS PO 04/10/17 21:00 05/10/17 20:59 04/11/17 20:56 15 MG Multivitamins/ Minerals (Multivitamin W/ Minerals Tab) 1 tab QAM PO 04/10/17 09:00 05/10/17 08:59 04/12/17 08:28 1 TAB Senna/Docusate Sodium (Senokot S Tab) 1 tab QD@1200 PO 04/10/17 12:00 05/10/17 11:59 04/11/17 08:43 1 TAB Miscellaneous Information (Order Awaiting Action) 1 ea QS N/A 04/10/17 08:00 05/10/17 07:59 Potassium Chloride (Klor-Con M10) 10 meq QAM PO 04/10/17 09:00 05/10/17 08:59 04/12/17 08:29 10 MEQ Ceftriaxone Sodium 1 gm/ Dextrose 50 ml @ 100 mls/hr Q24H IV 04/10/17 06:00 04/15/17 05:59 04/12/17 06:09 100 MLS/HR Ondansetron HCl (Zofran Inj) 4 mg Q6H PRN IV 04/10/17 06:15 05/10/17 06:14 Polyethylene (Miralax Powder Packet) 17 gm DAILY PRN PO 04/10/17 06:15 05/10/17 06:14 Al Hydrox/Mg Hydrox/Simethicone (Maalox Max Susp) 15 ml Q4H PRN PO 04/10/17 06:15 05/10/17 06:14 Heparin Sodium (Porcine) (Heparin Sq 5000 Unit/0.5ml) 5,000 unit Q12 SQ 04/10/17 09:00 05/10/17 08:59 04/12/17 08:43 5,000 UNIT Magnesium Hydroxide (Milk Of Magnesia Susp) 30 ml Q12H PRN PO 04/10/17 06:30 05/10/17 06:29 Metoprolol Tartrate (Lopressor Iv) 5 mg ONE PRN IV 04/11/17 11:15 05/11/17 11:14 Diclofenac Sodium (Voltaren 1% Top Gel) 1 appln QID EXT 04/11/17 13:00 05/11/17 12:59 04/11/17 20:56 1 APPLN Miscellaneous Medication (Milk And Molasses Enema) 1 ea Q1H PRN [place] 04/11/17 19:15 05/11/17 19:14 Levothyroxine Sodium (Synthroid Tab) 50 mcg DAILYBB PO 04/12/17 06:00 05/12/17 05:59 04/12/17 06:26 50 MCG Potassium Chloride/Sodium Chloride 1,000 ml @ 75 mls/hr [id number] IV 04/12/17 10:00 05/12/17 09:59 Objective Vital Signs Date Time Temp Pulse Resp B/P (MAP) Pulse Ox O2 Delivery O2 Flow Rate FiO2 04/12/17 08:25 36.8 86 24 153/98 (116) 94 Room Air 04/12/17 05:06 37.2 86 18 137/91 (106) 96 Room Air 04/12/17 04:00 Room Air 04/12/17 00:17 36.7 109 17 149/90 (109) 95 Room Air 04/12/17 00:00 Room Air 04/11/17 20:00 Room Air 04/11/17 19:34 36.7 88 16 128/61 (83) 95 04/11/17 16:00 Room Air 04/11/17 15:39 36.9 98 16 136/55 (82) 94 04/11/17 12:05 Room Air 04/11/17 12:00 Room Air 04/11/17 10:49 36.7 88 19 141/62 (88) 93 Room Air Physical Exam General Appearance: WD/WN, no apparent distress, + cachetic Eyes: normal inspection, EOMI Respiratory/Chest: lungs clear, normal breath sounds, no respiratory distress Cardiovascular: no gallop, no murmur, + normal peripheral pulses, + pertinent finding (regular rate with PAC's) Abdomen: normal bowel sounds, soft, + tenderness (tenderness mostly in LLQ, although is diffuse. Neg for guarding. ) Neurologic/Psychiatric: alert, oriented x 3 Skin: warm/dry, no rash Laboratory Results Last Resulted 04/12/17 07:44 Last Resulted 04/12/17 07:44 Assessment and Plan 89 y/o F, PMH CHF, HLD, HTN, Atherosclerosis, dementia, hypothyroidism admitted for DERRELL/Dehydration and fecal impaction. Failure to thrive - rec boost daily, appreciate director special education recs. Once dentures situation is resolved, will need supplementation, appetite stimulant on discharge. - continue fluids, switch to 1/2 normal saline, with K supp 20. Hypokalemia - 3.1 today. Add 40 of potassium PO now and 20 at dinner time. Acute on chronic kidney failure/Dehdyration -Cr of 3.68 on admission, improved with IVF, 1.0 today. - cont fluids as above - Consider restarting Lisinopril and Furosemide on DC Fecal impaction - resolved - Hold Colace, Miralax, Senna, although will likely need to keep a daily regimen , goal of 1 soft stool per day. Rectal wall stretching will take weeks to resolve, important to keep regular to allow it to shrink back down. Dizziness - lightheadedness - reports none today - Head CT negative. Echo in feb 2017 shows cardiac likely noncontributory. - hydration and nutrition will likely be critical to solving this nursing home Chronic generalized and back pain -in light of DERRELL while here, would caution against use of NSAIDS in outpatient setting, however may continue voltaren gel for lower back. Abnormal u/a, possibly e. coli UTI - U cx growing klebsiella - has been treated with rocephin IV. Pansensitive, consider switch to Cipro PO 500mg PO BID - consider DC hanks today PAF: - Continue metoprolol - No longer on Xarelto but discussion needs to be continued with son regarding her annual risk of stroke and the need to be on therapy as outpatient, reiterate that medications like xarelto would be unlikely to cause nausea/ dizziness symptoms she has experienced. - CHADSVASC of 5 gives her 7% annual risk of stroke GERD - continue pantoprazole Hypothyroidism -Tsh of 0.075, free T4 nl at 1.38 - decreased dose of Levothyroxine to 50 mcg; consider increasing dose back to normal if comfortable - recheck as outpatient Dementia - continue memantine Code: DNR Dispo: Tele - consider transfer to medical tomorrow if continues to be stable. DC to SNF. Pt was formerly in independent living. Personal care likely not enough to watch her diet and intake. DVTP: heparin 5000 U q12h. Resident Physician Supervision Note: I interviewed and examined the patient. Discussed with Dr. Martínez and agree with findings and plan as documented in the note. Any exceptions or clarifications are listed here: None Documented By: Alexander Samayoa feeling better still not eating. denies nausea. denies dizziness vitals noted nad breathing unlabored no pallor or icterus failure to thrive - will need to ensure now that "acute fires" have been dealt with that she's got improvement in nausea and dizziness that lasts, then that she goes to safe environment that can encourage and monitor PO intake (probably minimum of 1200cal and about 60oz fluids) dehydration/dizziness/ARF - improved w IVF. as above w ongoing PO intake nausea/constipation/fecal impaction - improved w bowel regimen. will want to continue bowel regimen of some sort since constipation sounds chronic, will have to titrate based on her status afib/RVR - now NSR. would benefit from anticoagulation. seems it was held before because of family concern on if it had a bearing on her failure to thrive. at some point in near future would want to resume, but not urgent to do so DVT proph - heparin SQ hypokalemia - continue to replete. since she had RVR happen suddenly 2 nights ago, keep on tele until K repleted and stooling has slowed hypernatremia - adjust IVF metabolic acidosis - relates to renal failure - improving. Continued [facility] stay due to: inadequate po fluid intake Discharge planning: [facility] facility Resident Tracking Resident Involvement: Resident Care Provided Care Provided: Adult Hospital Medicine
[2017-04-12] MEDS: DOCUSATE SODIUM/SENNA 50/8.6MG TAB PO SCH (11:53)
[2017-04-12 12:21] VITALS: BP 166/92; PULSE 91; TEMP 36.6; O2SAT 96
[2017-04-12] MEDS: SODIUM CHLOR 0.45% + 20MEQ KCL 1,000 ML IV SCH ×2 (12:30→23:13)
[2017-04-12] MEDS ORDERED: POTASSIUM CHLORIDE 10 MEQ TABCR PO ONE (15:00)
[2017-04-12] MEDS ORDERED: BOOST VANILLA PO ONE (15:12)
[2017-04-12 16:21] VITALS: BP 151/75; PULSE 122; TEMP 36.7; O2SAT 94
[2017-04-12] MEDS: ATORVASTATIN 10 MG TAB PO SCH (17:30)
[2017-04-12] MEDS ORDERED: POTASSIUM CHLORIDE 20 MEQ TABCR PO SCH (18:00)
[2017-04-12 19:46] VITALS: BP 155/94; PULSE 102; TEMP 37; O2SAT 95
[2017-04-12] MEDS ORDERED: BOOST VANILLA PO SCH (21:00)
[2017-04-12] MEDS: GABAPENTIN 100 MG CAP PO SCH (21:16)
[2017-04-12] MEDS: MIRTAZAPINE TAB 15 MG TAB PO SCH (21:16)
[2017-04-13] VITALS (7 sets, daily range): BP systolic 150–174; BP diastolic 78–102; PULSE 79–101; TEMP 36.3–37.1; O2SAT 91–99
[2017-04-13] MEDS: CEFTRIAXONE SOD INJ 1 GM in DEXTROSE 5% ADD-VANTAGE 50ML 50 ML IV SCH (05:40)
[2017-04-13] MEDS: LEVOTHYROXINE 50 MCG TAB PO SCH (06:04)
[2017-04-13] MEDS: DICLOFENAC SOD 1% GEL 100 GM TUBE EXT SCH ×4 (07:49→21:47)
[2017-04-13] MEDS: CEROVITE ADV FORMULA TAB PO SCH (07:54)
[2017-04-13] MEDS: POTASSIUM CHLORIDE 10 MEQ TABCR PO SCH (08:00)
[2017-04-13] MEDS: ASPIRIN 81 MG ECTAB PO SCH (08:00)
[2017-04-13] MEDS: DOCUSATE SODIUM 100 MG/10 ML UDC PO SCH ×2 (08:00→21:45)
[2017-04-13] MEDS: ASCORBIC ACID 500 MG TAB PO SCH (08:00)
[2017-04-13] MEDS: POLYETHYLENE (MIRALAX) 17 GM PACK PO SCH ×2 (08:02→21:45)
[2017-04-13] MEDS: HEPARIN SOD 5000 UNIT/0.5 ML CARP SQ SCH ×2 (08:11→22:12)
[2017-04-13] MEDS: BOOST VANILLA PO SCH ×3 (08:12→21:44)
[2017-04-13] MEDS: METOPROLOL SUCC 50MG EXT REL TAB PO SCH (08:13)
[2017-04-13 09:10] LABS: CALCIUM 8.8 mg/dl (8.5-10.1); CREATININE 0.84 mg/dl (0.60-1.20); POTASSIUM 4.3 mmol/L (3.5-5.1)
[2017-04-13] MEDS: DOCUSATE SODIUM/SENNA 50/8.6MG TAB PO SCH (12:00)
[2017-04-13] MEDS: SODIUM CHLOR 0.45% + 20MEQ KCL 1,000 ML IV SCH (13:07)
--- NOTE | 2017-04-13 13:38 | Family Medicine Progress Note ---
Progress Note Date of Service Apr 13, 2017. Subjective Pt evaluation today including: conversation w/ patient (pt denies any complaints today, smiling, more conversational than usual.), physical exam, chart review, lab review Pain: denies PO Intake: tolerating boost, but not eating much breakfast. Voiding: no voiding problems Respiratory: No cough, No shortness of breath Cardiovascular: No chest pain, No palpitations Abdomen: No pain, No nausea, No vomiting Neurologic: No vertigo Medications Current Inpatient Medications Medications (Trade) Dose Ordered Sig/Sapphire Route Start Time Stop Time Status Last Admin Dose Admin Ioversol (Optiray 320) 100 ml UD PRN IV 04/09/17 17:00 04/13/17 16:59 Docusate Sodium (coLACE SYRUP) 100 mg BID PO 04/10/17 09:00 05/10/17 08:59 04/11/17 20:56 100 MG Polyethylene (Miralax Powder Packet) 17 gm BID PO 04/10/17 09:00 05/10/17 08:59 04/13/17 08:02 17 GM Ascorbic Acid (Vitamin C Tab) 500 mg QAM PO 04/10/17 09:00 05/10/17 08:59 04/13/17 08:00 500 MG Aspirin (Ecotrin Tab) 81 mg QAM PO 04/10/17 09:00 05/10/17 08:59 04/13/17 08:00 81 MG Atorvastatin Calcium (Lipitor Tab) 10 mg QD@1700 PO 04/10/17 17:00 05/10/17 16:59 04/12/17 17:30 10 MG Gabapentin (Neurontin Cap) 100 mg QPM PO 04/10/17 21:00 05/10/17 20:59 04/12/17 21:16 100 MG Mirtazapine (Remeron Tab) 15 mg HS PO 04/10/17 21:00 05/10/17 20:59 04/12/17 21:16 15 MG Multivitamins/ Minerals (Multivitamin W/ Minerals Tab) 1 tab QAM PO 04/10/17 09:00 05/10/17 08:59 04/13/17 07:54 1 TAB Senna/Docusate Sodium (Senokot S Tab) 1 tab QD@1200 PO 04/10/17 12:00 05/10/17 11:59 04/11/17 08:43 1 TAB Miscellaneous Information (Order Awaiting Action) 1 ea QS N/A 04/10/17 08:00 05/10/17 07:59 Potassium Chloride (Klor-Con M10) 10 meq QAM PO 04/10/17 09:00 05/10/17 08:59 04/13/17 08:00 10 MEQ Ceftriaxone Sodium 1 gm/ Dextrose 50 ml @ 100 mls/hr Q24H IV 04/10/17 06:00 04/15/17 05:59 04/13/17 05:40 100 MLS/HR Ondansetron HCl (Zofran Inj) 4 mg Q6H PRN IV 04/10/17 06:15 05/10/17 06:14 Polyethylene (Miralax Powder Packet) 17 gm DAILY PRN PO 04/10/17 06:15 05/10/17 06:14 Al Hydrox/Mg Hydrox/Simethicone (Maalox Max Susp) 15 ml Q4H PRN PO 04/10/17 06:15 05/10/17 06:14 Heparin Sodium (Porcine) (Heparin Sq 5000 Unit/0.5ml) 5,000 unit Q12 SQ 04/10/17 09:00 05/10/17 08:59 04/13/17 08:11 5,000 UNIT Magnesium Hydroxide (Milk Of Magnesia Susp) 30 ml Q12H PRN PO 04/10/17 06:30 05/10/17 06:29 Metoprolol Tartrate (Lopressor Iv) 5 mg ONE PRN IV 04/11/17 11:15 05/11/17 11:14 Diclofenac Sodium (Voltaren 1% Top Gel) 1 appln QID EXT 04/11/17 13:00 05/11/17 12:59 04/11/17 20:56 1 APPLN Miscellaneous Medication (Milk And Molasses Enema) 1 ea Q1H PRN MT 04/11/17 19:15 05/11/17 19:14 Levothyroxine Sodium (Synthroid Tab) 50 mcg DAILYBB PO 04/12/17 06:00 05/12/17 05:59 04/13/17 06:04 50 MCG Potassium Chloride/Sodium Chloride 1,000 ml @ 75 mls/hr [id number] IV 04/12/17 10:00 1/29/18 09:59 04/13/17 13:07 75 MLS/HR Metoprolol Succinate (Toprol Xl Tab) 50 mg QAM PO 04/13/17 09:00 05/10/17 08:59 04/13/17 08:13 50 MG Enteral Nutritional Formula (Boost) 1 can TID PO 04/13/17 09:00 05/13/17 08:59 Objective Vital Signs Date Time Temp Pulse Resp B/P (MAP) Pulse Ox O2 Delivery O2 Flow Rate FiO2 04/13/17 12:08 36.5 101 20 164/79 (107) 91 Room Air 04/13/17 08:38 Room Air 04/13/17 08:00 Room Air 04/13/17 07:18 36.8 99 18 162/94 (116) 99 Room Air 04/13/17 04:49 36.5 99 25 169/102 (124) 93 Room Air 04/13/17 04:00 Room Air 04/13/17 00:06 36.5 83 19 174/90 (118) 92 04/13/17 00:00 Room Air 04/12/17 20:00 Room Air 04/12/17 19:46 37.0 102 22 155/94 (114) 95 Room Air 04/12/17 16:21 36.7 122 23 151/75 (100) 94 Room Air 04/12/17 16:00 Room Air Physical Exam General Appearance: WD/WN, no apparent distress (smiling today. Dentures in place.) Eyes: normal inspection ENT: hearing grossly normal Respiratory/Chest: lungs clear, normal breath sounds, no respiratory distress Cardiovascular: regular rate, rhythm, no gallop, no murmur Abdomen: normal bowel sounds, non tender, soft Extremities: normal inspection, no pedal edema Neurologic/Psychiatric: alert, normal mood/affect, oriented x 3 Skin: normal color, warm/dry, no rash Laboratory Results 04/13/17 08:24 Test 04/13/17 08:24 Anion Gap 9.0 mmol/L (3-11) Est Creatinine Clear Calc Drug Dose 39.1 ml/min Estimated GFR () 71.4 Estimated GFR (Non- 61.6 BUN/Creatinine Ratio 36.5 (10-20) Calcium Level 8.8 mg/dl (8.5-10.1) Chemistry Specimen Hemolysis Assessment and Plan 89 y/o F, PMH CHF, HLD, HTN, Atherosclerosis, dementia, hypothyroidism admitted for DERRELL/Dehydration and fecal impaction. Failure to thrive - tolerating boost daily, appreciate shellfish dredge operator sondra. Apparently pt has dentures , and is wearing them today, (daughter brought them in). - continue fluids, 1/2 normal saline, with K supp 20. Titrating flow to 50 mls/ hour, as PO intake improving. Follow. Hypokalemia - resolved. Acute on chronic kidney failure/Dehydration - resolved. - Cr of 3.68 on admission, 0.86 today. - cont fluids as above - Consider restarting Lisinopril and Furosemide - continuing fluid rehydration for today but day team tomorrow should consider stopping fluids tomorrow and then restarting these medications, her intake needs to be more adequate. Fecal impaction - resolved - Colace, Miralax, Senna. Will likely need to keep a daily regimen of some stool softener on discharge, goal of 1 soft stool per day. Rectal wall stretching will take weeks to resolve, important to keep regular to allow it to shrink back down. Day team - monitor for 1 daily stool. Dizziness - lightheadedness - reports none today, resolved. - Head CT negative. Echo in feb 2017 shows cardiac likely noncontributory. - continue proper hydration and nutrition Chronic generalized and back pain - in light of DERRELL while here, would caution against use of NSAIDS in outpatient setting, however may continue voltaren gel for lower back. Abnormal u/a, possibly e. coli UTI - U cx growing klebsiella - has been treated with rocephin IV, will need total of 5 days. Can dc this drug after 5th day which will be 04/14/17. PAF: - Continue metoprolol - titrated dose to 50 this am for rate control. Tolerating well. - No longer on Xarelto but discussion needs to be continued with son regarding her annual risk of stroke and the need to be on therapy as outpatient, reiterate that medications like xarelto would be unlikely to cause nausea/ dizziness symptoms she has experienced. - CHADSVASC of 5 gives her 7% annual risk of stroke GERD - continue pantoprazole Hypothyroidism -Tsh of 0.075, free T4 nl at 1.38 - decreased dose of Levothyroxine to 50 mcg; consider increasing dose back to normal if comfortable - recheck as outpatient Dementia - continue memantine Code: DNR Dispo: Tele - consider transfer to medical today if continues to be stable. DC to SNF. Pt was formerly in independent living. Personal care likely not enough to watch her diet and intake. DVTP: heparin 5000 U q12h. I agree with resident assessment and plan and have seen and examined pt myself Resting comfortably in bed VS examined, still tachy Increased toprol to 50 mg daily DERRELL resolving, cut down on IVF, can likely DC tomorrow as sodium is increasing Cont PT/OT Will need SNF on DC, awaiting at this time Continued [facility] stay due to: inadequate po fluid intake, ambulation difficulties Discharge planning: residential facility Resident Tracking Resident Involvement: Resident Care Provided Care Provided: Adult Hospital Medicine
[2017-04-13] MEDS: ATORVASTATIN 10 MG TAB PO SCH (17:05)
[2017-04-13] MEDS ORDERED: LISINOPRIL 20 MG TAB PO ONE (18:00)
[2017-04-13] MEDS ORDERED: ACETAMINOPHEN 500 MG TAB PO ONE (18:00)
[2017-04-13] MEDS: MIRTAZAPINE TAB 15 MG TAB PO SCH (21:46)
[2017-04-13] MEDS: GABAPENTIN 100 MG CAP PO SCH (21:46)
[2017-04-14] MEDS: CEFTRIAXONE SOD INJ 1 GM in DEXTROSE 5% ADD-VANTAGE 50ML 50 ML IV SCH (05:52)
[2017-04-14] MEDS: LEVOTHYROXINE 50 MCG TAB PO SCH (05:52)
[2017-04-14 07:21] VITALS: BP 154/79; PULSE 86; TEMP 35.9; O2SAT 95
[2017-04-14 07:28] LABS: CALCIUM 8.5 mg/dl (8.5-10.1); CREATININE 0.76 mg/dl (0.60-1.20); POTASSIUM 3.6 mmol/L (3.5-5.1)
[2017-04-14] MEDS: BOOST VANILLA PO SCH ×3 (08:20→20:41)
[2017-04-14] MEDS: POLYETHYLENE (MIRALAX) 17 GM PACK PO SCH ×2 (08:22→20:42)
[2017-04-14] MEDS: ASPIRIN 81 MG ECTAB PO SCH (08:23)
[2017-04-14] MEDS: LISINOPRIL 20 MG TAB PO SCH (08:25)
[2017-04-14] MEDS: ASCORBIC ACID 500 MG TAB PO SCH (08:25)
[2017-04-14] MEDS: CEROVITE ADV FORMULA TAB PO SCH (08:25)
[2017-04-14] MEDS: METOPROLOL SUCC 50MG EXT REL TAB PO SCH (08:25)
[2017-04-14] MEDS: DICLOFENAC SOD 1% GEL 100 GM TUBE EXT SCH ×5 (08:39→20:27)
[2017-04-14] MEDS: HEPARIN SOD 5000 UNIT/0.5 ML CARP SQ SCH ×2 (08:39→20:46)
[2017-04-14] MEDS: DOCUSATE SODIUM 100 MG/10 ML UDC PO SCH ×2 (08:39→20:42)
[2017-04-14] MEDS ORDERED: NAPHAZOLIN/PHENIRAMIN OPH SOLN 75 DROPS/5 ML BTL OP PRN (11:00)
[2017-04-14] MEDS: DOCUSATE SODIUM/SENNA 50/8.6MG TAB PO SCH (12:00)
--- NOTE | 2017-04-14 12:56 | Hospitalist Progress Note ---
Hospitalist Progress Note Date of Service Apr 14, 2017. (Angela Rick CRNP) Subjective Pt evaluation today including: conversation w/ patient, conversation w/ family , physical exam, chart review, lab review, review of inpatient medication list Voiding: incontinence Ms. Santana is quiet and a bit disoriented. Her daughter is at bedside and says that her mother has been like this over the past few days but that two days ago was much better than today. Ms. Santana denies pain or discomfort. ROS Constitutional: no chills, aches, sweats or fever Respiratory: no sob,cough, sputum, or wheezing Cardiac: no chest pain, palpitations, edema, orthopnea or lightheadedness GI: no abdominal pain, nausea, vomiting, diarrhea or constipation : no dysuria or hesitancy Extremities: no joint pain or weakness Skin: no rash (Angela Rick CRNP) Medications Medications Administered Medications (Trade) Dose Ordered Sig/Sapphire Route Start Time Stop Time Status Last Admin Dose Admin Sodium Chloride 500 ml @ 500 mls/hr Q1H STAT IV 04/09/17 20:09 04/09/17 21:08 DC 04/09/17 20:09 500 MLS/HR Docusate Sodium (coLACE SYRUP) 100 mg BID PO 04/10/17 09:00 05/10/17 08:59 04/13/17 21:45 100 MG Polyethylene (Miralax Powder Packet) 17 gm BID PO 04/10/17 09:00 05/10/17 08:59 04/14/17 08:22 17 GM Ascorbic Acid (Vitamin C Tab) 500 mg QAM PO 04/10/17 09:00 05/10/17 08:59 04/14/17 08:25 500 MG Aspirin (Ecotrin Tab) 81 mg QAM PO 04/10/17 09:00 05/10/17 08:59 04/14/17 08:23 81 MG Atorvastatin Calcium (Lipitor Tab) 10 mg QD@1700 PO 04/10/17 17:00 05/10/17 16:59 04/13/17 17:05 10 MG Gabapentin (Neurontin Cap) 100 mg QPM PO 04/10/17 21:00 05/10/17 20:59 04/13/17 21:46 100 MG Metoprolol Succinate (Toprol Xl Tab) 25 mg QAM PO 04/10/17 09:00 04/13/17 07:46 DC 04/12/17 08:28 25 MG Mirtazapine (Remeron Tab) 15 mg HS PO 04/10/17 21:00 05/10/17 20:59 04/13/17 21:46 15 MG Multivitamins/ Minerals (Multivitamin W/ Minerals Tab) 1 tab QAM PO 04/10/17 09:00 05/10/17 08:59 04/14/17 08:25 1 TAB Senna/Docusate Sodium (Senokot S Tab) 1 tab QD@1200 PO 04/10/17 12:00 05/10/17 11:59 04/11/17 08:43 1 TAB Potassium Chloride (Klor-Con M10) 10 meq QAM PO 04/10/17 09:00 05/10/17 08:59 Future Hold 04/13/17 08:00 10 MEQ Levothyroxine Sodium (Synthroid Tab) 50 mcg DAILYBB PO 04/10/17 06:00 04/12/17 06:15 DC 04/11/17 05:51 50 MCG Ceftriaxone Sodium 1 gm/ Dextrose 50 ml @ 100 mls/hr Q24H IV 04/10/17 06:00 04/15/17 05:59 04/14/17 05:52 100 MLS/HR Heparin Sodium (Porcine) (Heparin Sq 5000 Unit/0.5ml) 5,000 unit Q12 SQ 04/10/17 09:00 05/10/17 08:59 04/14/17 08:39 5,000 UNIT Sodium Chloride 1,000 ml @ 125 mls/hr Q8H IV 04/10/17 08:45 04/12/17 09:49 DC 04/12/17 08:29 125 MLS/HR Sodium Chloride 500 ml @ 500 mls/hr Q1H ONCE IV 04/10/17 07:45 04/10/17 08:44 DC 04/10/17 07:45 500 MLS/HR Sodium Biphosphate/ Sodium Phosphate (Fleet Enema) 132 ml ONE ONCE MN 04/10/17 15:00 04/10/17 15:01 DC 04/10/17 14:54 132 ML Digoxin (Digoxin IV) 500 mcg STK-MED ONCE .ROUTE 04/10/17 21:19 04/10/17 21:20 DC 04/10/17 21:23 250 MCG Potassium Chloride 10 meq/ Prmx 100 ml @ 100 mls/hr Q1H IV 04/11/17 01:00 04/11/17 04:59 DC 04/11/17 04:19 100 MLS/HR Miscellaneous Medication (Milk And Molasses Enema) 1 ea TODAY@1045 MN 04/11/17 10:45 04/11/17 14:00 DC 04/11/17 16:10 1 EA Diclofenac Sodium (Voltaren 1% Top Gel) 1 appln QID EXT 04/11/17 13:00 05/11/17 12:59 04/13/17 21:47 1 APPLN Levothyroxine Sodium (Synthroid Tab) 50 mcg DAILYBB PO 04/12/17 06:00 05/12/17 05:59 04/14/17 05:52 50 MCG Potassium Chloride/Sodium Chloride 1,000 ml @ 50 mls/hr Q20H IV 04/12/17 10:00 04/14/17 08:35 DC 04/13/17 13:07 75 MLS/HR Potassium Chloride (Klor-Con M10) 40 meq NOW ONCE PO 04/12/17 15:00 04/12/17 15:01 DC 04/12/17 15:41 40 MEQ Potassium Chloride (Klor-Con Tab) 20 meq TODAY@1800 PO 04/12/17 18:00 04/12/17 20:00 DC 04/12/17 17:30 20 MEQ Enteral Nutritional Formula (Boost) 1 can TID PO 04/12/17 21:00 04/13/17 07:58 DC 04/12/17 21:16 1 CAN Enteral Nutritional Formula (Boost) 1 can 1512 ONCE PO 04/12/17 15:12 04/12/17 15:30 DC 04/12/17 15:43 1 CAN Metoprolol Succinate (Toprol Xl Tab) 50 mg QAM PO 04/13/17 09:00 05/10/17 08:59 04/14/17 08:25 50 MG Enteral Nutritional Formula (Boost) 1 can TID PO 04/13/17 09:00 05/13/17 08:59 04/14/17 08:20 1 CAN Lisinopril (Zestril Tab) 20 mg QAM PO 04/14/17 09:00 05/14/17 08:59 04/14/17 08:25 20 MG Lisinopril (Zestril Tab) 20 mg 1800 ONCE PO 04/13/17 18:00 04/13/17 18:01 DC 04/13/17 17:59 20 MG Acetaminophen (Tylenol Tab) 500 mg NOW ONCE PO 04/13/17 18:00 04/13/17 18:01 DC 04/13/17 18:00 500 MG (Angela Rick CRNP) Objective Vital Signs Date Time Temp Pulse Resp B/P (MAP) Pulse Ox O2 Delivery O2 Flow Rate FiO2 04/14/17 08:30 Room Air 04/14/17 07:21 35.9 86 16 154/79 (104) 95 Room Air 04/14/17 00:12 Room Air 04/13/17 23:37 37.1 86 16 150/78 (102) 92 Room Air 04/13/17 21:00 Room Air 04/13/17 18:40 36.3 79 26 99 04/13/17 16:40 Room Air 04/13/17 15:37 36.3 79 26 171/85 (113) 99 Room Air (Angela Rick CRNP) Physical Exam Notes: General: no distress Eyes: normal inspection, PERLL Respiratory: chest non tender, clear to auscultation, normal breath sounds, no respiratory distress, no accessory muscle use Cardiac: irregular rate and rhythm, no rub or gallop, no murmur, no edema, no jvd GI/: active bowel sounds, no abd pain or tenderness, soft, belly mildly distended Extremities: normal range of motion, normal strength, non tender Neuro/Psych: alert and oriented x 3, normal mood and affect Skin: normal color, dry (Angela Rick CRNP) Laboratory Results Last 24 Hours Test 04/14/17 06:45 Sodium Level 146 mmol/L Potassium Level 3.6 mmol/L Chloride Level 116 mmol/L Carbon Dioxide Level 26 mmol/L Anion Gap 4.0 mmol/L Blood Urea Nitrogen 19 mg/dl Creatinine 0.76 mg/dl Est Creatinine Clear Calc Drug Dose 43.2 ml/min Estimated GFR () 80.6 Estimated GFR (Non- 69.5 BUN/Creatinine Ratio 25.5 Random Glucose 107 mg/dl Calcium Level 8.5 mg/dl (Angela Rick CRNP) Assessment and Plan 89 y/o F, PMH CHF, HLD, HTN, Atherosclerosis, dementia, hypothyroidism admitted for DERRELL/Dehydration and fecal impaction. Failure to thrive - continue boost, dietitian recs - IVF discontinued, kidney function wnl, sodium decreased to 146 - Mild abdominal distention and continues to have no appetite - Abd 2 views Hypokalemia - resolved. Acute on chronic kidney failure/Dehydration - resolved. - Cr of 3.68 on admission, trended down - Lisinopril restarted, will hold off on restarting furosemide as patient is not taking in much po. Fecal impaction - resolved - continue Colace, Miralax, Senna. Dizziness - lightheadedness - reports none today, resolved. - Head CT negative. Echo in feb 2017 shows cardiac likely noncontributory. - continue proper hydration and nutrition Chronic generalized and back pain - Continue voltaren gel Klebsiella UTI - U cx growing klebsiella - 5 day treatment with ceftriaxone ending 04/14/17. PAF: - Continue metoprolol - titrated dose to 50 this am for rate control. Tolerating well. - No longer on Xarelto but discussion needs to be continued with son regarding her annual risk of stroke and the need to be on therapy as outpatient, reiterate that medications like xarelto would be unlikely to cause nausea/ dizziness symptoms she has experienced - son will be here tomorrow and will discuss with him then - CHADSVASC of 5 gives her 7% annual risk of stroke GERD - continue pantoprazole Hypothyroidism -Tsh of 0.075, free T4 nl at 1.38 - decreased dose of Levothyroxine to 50 mcg; - recheck as outpatient Dementia - continue memantine Dispo - awaiting SNF placement (Angela Rick CRNP) I agree with resident assessment and plan and have seen and examined pt myself Resting comfortably in bed VSS Rate controlled DERRELL resolved, IVF stopped PT/OT consulted, awaiting SNF placement at this time Finished 5 day course of rocephin for uncomplicated UTI (Twin Dougherty D.OEdil)
[2017-04-14] MEDS: ACETAMINOPHEN 325 MG TAB PO PRN (13:43)
--- NOTE | 2017-04-14 14:31 | DIAGNOSTIC IMAGING REPORT ---
AP CHEST WITH ABDOMINAL SERIES CLINICAL HISTORY: Abdominal distention. Loss of appetite. FINDINGS: An AP chest radiograph is compared to study dated 04/09/2017. The examination is degraded by patient rotation. The patient is status post midline sternotomy and cardiac valve surgery. The heart is enlarged and there is atherosclerotic calcification of the thoracic aorta. The pulmonary vasculature is noncongested. Chronic interstitial thickening is similar to previous. There are bibasilar airspace opacities. Trace pleural effusions are noted. No pneumothorax is seen. The skeletal structures are osteopenic. 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 Supine and decubitus abdominal radiographs are compared to study dated 04/11/2017 and correlated with abdominal CT dated 04/09/2017. Call cystectomy clips are seen in the right upper quadrant. There is a nonobstructed abdominal bowel gas pattern. Gaseous distention of the colon has significantly improved from 04/11/2017. No evidence of intraperitoneal free air is seen. There are no abnormal abdominal calcifications. Phleboliths are seen in the pelvis. There is moderate lumbosacral spondylosis and scoliosis. The lumbosacral spine and bony pelvis appear intact. IMPRESSION: 1. Cardiomegaly without radiographic evidence of congestive failure. 2. There are bibasilar airspace opacities and small pleural effusions. This could represent atelectasis versus pneumonia/aspiration pneumonitis. Clinical correlation will be required. 3. Nonobstructed abdominal bowel gas pattern. Gaseous distention of the colon has significantly improved from 04/11/2017. Electronically signed by: Miguelangel Mahoney M.D. 04/14/2017 2:30 PM Dictated Date/Time: 04/14/2017 2:27 PM
[2017-04-14 15:01] VITALS: BP 129/83; PULSE 89; TEMP 36.7; O2SAT 91
[2017-04-14 16:00] VITALS: O2SAT 95
[2017-04-14] MEDS: ATORVASTATIN 10 MG TAB PO SCH (17:29)
[2017-04-14] MEDS: GABAPENTIN 100 MG CAP PO SCH (20:43)
[2017-04-14] MEDS: MIRTAZAPINE TAB 15 MG TAB PO SCH (20:43)
[2017-04-15 00:11] VITALS: BP 156/74; PULSE 110; TEMP 36.7; O2SAT 92
[2017-04-15 01:01] VITALS: PULSE 77
[2017-04-15] MEDS: LEVOTHYROXINE 50 MCG TAB PO SCH (05:36)
[2017-04-15 07:40] VITALS: BP 145/81; PULSE 79; TEMP 36.3; O2SAT 94
[2017-04-15 08:12] LABS: CALCIUM 8.4 mg/dl (8.5-10.1); CREATININE 0.66 mg/dl (0.60-1.20); POTASSIUM 3.2 mmol/L (3.5-5.1)
[2017-04-15] MEDS: DOCUSATE SODIUM 100 MG/10 ML UDC PO SCH ×2 (08:28→21:00)
[2017-04-15] MEDS: DICLOFENAC SOD 1% GEL 100 GM TUBE EXT SCH ×5 (08:28→21:00)
[2017-04-15] MEDS: BOOST VANILLA PO SCH ×3 (08:29→21:02)
[2017-04-15] MEDS: POLYETHYLENE (MIRALAX) 17 GM PACK PO SCH ×2 (08:29→21:00)
[2017-04-15] MEDS: METOPROLOL SUCC 50MG EXT REL TAB PO SCH (08:30)
[2017-04-15] MEDS: CEROVITE ADV FORMULA TAB PO SCH (08:30)
[2017-04-15] MEDS: ASPIRIN 81 MG ECTAB PO SCH (08:31)
[2017-04-15] MEDS: LISINOPRIL 20 MG TAB PO SCH (08:31)
[2017-04-15] MEDS: ASCORBIC ACID 500 MG TAB PO SCH (08:31)
[2017-04-15] MEDS: HEPARIN SOD 5000 UNIT/0.5 ML CARP SQ SCH (08:32)
[2017-04-15 09:12] LABS: HEMATOCRIT 29.7 % (37-47); MEAN CELL VOLUME 96.1 fL (80-100); MEAN CORPUSCULAR HEMOGLOBIN 32.4 pg (25-34); MEAN CORPUSCULAR HGB CONC 33.7 g/dl (32-36); MEAN PLATELET VOLUME 10.3 fL (7.4-10.4); PLATELET COUNT 181 K/uL (130-400); RED CELL DISTRIBUTION WIDTH CV 15.5 % (11.5-14.5); RED CELL DISTRIBUTION WIDTH SD 53.8 fL (36.4-46.3)
[2017-04-15] MEDS: DOCUSATE SODIUM/SENNA 50/8.6MG TAB PO SCH (11:56)
[2017-04-15] MEDS ORDERED: POTASSIUM CHLORIDE 10 MEQ TABCR PO ONE (12:00)
--- NOTE | 2017-04-15 13:34 | Hospitalist Progress Note ---
Hospitalist Progress Note Date of Service Apr 15, 2017. (Angela Rick .EMANUEL) Subjective Pt evaluation today including: conversation w/ patient, physical exam, chart review, lab review, review of inpatient medication list Voiding: incontinence Ms. Santana continues to be quiet and somewhat disoriented. Her son and daughter are bedside. Discussed anticoagulation with them and also discussed briefly with her primary care who agreed that as long as she was not taking her daily Aleve, could try restarting Xeralto for home. Family had initially taken her off of the Xeralto because Aleve was the only thing working to stop her arthritis pain and they felt it was more important to control pain and provide quality of life over anticoagulation. Patient continues to have very little appetite. Discussed appetite stimulants but given side effect profiles, family does not want to start them at this time. ROS Constitutional: no chills, aches, sweats or fever Respiratory: no sob,cough, sputum, or wheezing Cardiac: no chest pain, palpitations, edema, orthopnea or lightheadedness GI: no abdominal pain, nausea, vomiting, diarrhea or constipation : no dysuria or hesitancy Extremities: no joint pain or weakness Skin: no rash All other systems reviewed and negative (Angela Rick .EMANUEL) Medications Medications Administered Medications (Trade) Dose Ordered Sig/Sapphire Route Start Time Stop Time Status Last Admin Dose Admin Sodium Chloride 500 ml @ 500 mls/hr Q1H STAT IV 04/09/17 20:09 04/09/17 21:08 DC 04/09/17 20:09 500 MLS/HR Docusate Sodium (coLACE SYRUP) 100 mg BID PO 04/10/17 09:00 05/10/17 08:59 04/13/17 21:45 100 MG Polyethylene (Miralax Powder Packet) 17 gm BID PO 04/10/17 09:00 05/10/17 08:59 04/15/17 08:29 17 GM Ascorbic Acid (Vitamin C Tab) 500 mg QAM PO 04/10/17 09:00 05/10/17 08:59 04/15/17 08:31 500 MG Aspirin (Ecotrin Tab) 81 mg QAM PO 04/10/17 09:00 05/10/17 08:59 04/15/17 08:31 81 MG Atorvastatin Calcium (Lipitor Tab) 10 mg QD@1700 PO 04/10/17 17:00 05/10/17 16:59 04/14/17 17:29 10 MG Gabapentin (Neurontin Cap) 100 mg QPM PO 04/10/17 21:00 05/10/17 20:59 04/14/17 20:43 100 MG Metoprolol Succinate (Toprol Xl Tab) 25 mg QAM PO 04/10/17 09:00 04/13/17 07:46 DC 04/12/17 08:28 25 MG Mirtazapine (Remeron Tab) 15 mg HS PO 04/10/17 21:00 05/10/17 20:59 04/14/17 20:43 15 MG Multivitamins/ Minerals (Multivitamin W/ Minerals Tab) 1 tab QAM PO 04/10/17 09:00 05/10/17 08:59 04/15/17 08:30 1 TAB Senna/Docusate Sodium (Senokot S Tab) 1 tab QD@1200 PO 04/10/17 12:00 05/10/17 11:59 04/15/17 11:56 1 TAB Potassium Chloride (Klor-Con M10) 10 meq QAM PO 04/10/17 09:00 05/10/17 08:59 Future Hold 04/13/17 08:00 10 MEQ Levothyroxine Sodium (Synthroid Tab) 50 mcg DAILYBB PO 04/10/17 06:00 04/12/17 06:15 DC 04/11/17 05:51 50 MCG Ceftriaxone Sodium 1 gm/ Dextrose 50 ml @ 100 mls/hr Q24H IV 04/10/17 06:00 04/14/17 12:53 DC 04/14/17 05:52 100 MLS/HR Heparin Sodium (Porcine) (Heparin Sq 5000 Unit/0.5ml) 5,000 unit Q12 SQ 04/10/17 09:00 05/10/17 08:59 04/15/17 08:32 5,000 UNIT Sodium Chloride 1,000 ml @ 125 mls/hr Q8H IV 04/10/17 08:45 04/12/17 09:49 DC 04/12/17 08:29 125 MLS/HR Sodium Chloride 500 ml @ 500 mls/hr Q1H ONCE IV 04/10/17 07:45 04/10/17 08:44 DC 04/10/17 07:45 500 MLS/HR Sodium Biphosphate/ Sodium Phosphate (Fleet Enema) 132 ml ONE ONCE SD 04/10/17 15:00 04/10/17 15:01 DC 04/10/17 14:54 132 ML Digoxin (Digoxin IV) 500 mcg STK-MED ONCE .ROUTE 04/10/17 21:19 04/10/17 21:20 DC 04/10/17 21:23 250 MCG Potassium Chloride 10 meq/ Prmx 100 ml @ 100 mls/hr Q1H IV 04/11/17 01:00 04/11/17 04:59 DC 04/11/17 04:19 100 MLS/HR Miscellaneous Medication (Milk And Molasses Enema) 1 ea TODAY@1045 SD 04/11/17 10:45 04/11/17 14:00 DC 04/11/17 16:10 1 EA Diclofenac Sodium (Voltaren 1% Top Gel) 1 appln QID EXT 04/11/17 13:00 05/11/17 12:59 04/14/17 20:27 1 APPLN Levothyroxine Sodium (Synthroid Tab) 50 mcg DAILYBB PO 04/12/17 06:00 05/12/17 05:59 04/15/17 05:36 50 MCG Potassium Chloride/Sodium Chloride 1,000 ml @ 50 mls/hr Q20H IV 04/12/17 10:00 04/14/17 08:35 DC 04/13/17 13:07 75 MLS/HR Potassium Chloride (Klor-Con M10) 40 meq NOW ONCE PO 04/12/17 15:00 04/12/17 15:01 DC 04/12/17 15:41 40 MEQ Potassium Chloride (Klor-Con Tab) 20 meq TODAY@1800 PO 04/12/17 18:00 04/12/17 20:00 DC 04/12/17 17:30 20 MEQ Enteral Nutritional Formula (Boost) 1 can TID PO 04/12/17 21:00 04/13/17 07:58 DC 04/12/17 21:16 1 CAN Enteral Nutritional Formula (Boost) 1 can 1512 ONCE PO 04/12/17 15:12 04/12/17 15:30 DC 04/12/17 15:43 1 CAN Metoprolol Succinate (Toprol Xl Tab) 50 mg QAM PO 04/13/17 09:00 05/10/17 08:59 04/15/17 08:30 50 MG Enteral Nutritional Formula (Boost) 1 can TID PO 04/13/17 09:00 05/13/17 08:59 04/15/17 08:29 1 CAN Lisinopril (Zestril Tab) 20 mg QAM PO 04/14/17 09:00 05/14/17 08:59 04/15/17 08:31 20 MG Lisinopril (Zestril Tab) 20 mg 1800 ONCE PO 04/13/17 18:00 04/13/17 18:01 DC 04/13/17 17:59 20 MG Acetaminophen (Tylenol Tab) 500 mg NOW ONCE PO 04/13/17 18:00 04/13/17 18:01 DC 04/13/17 18:00 500 MG Acetaminophen (Tylenol Tab) 650 mg Q4H PRN PO 04/14/17 13:00 05/14/17 12:59 04/14/17 13:43 650 MG (Angela Rick CRNP) Objective Vital Signs Date Time Temp Pulse Resp B/P (MAP) Pulse Ox O2 Delivery O2 Flow Rate FiO2 04/15/17 07:40 36.3 79 16 145/81 (102) 94 Room Air 04/15/17 07:10 Room Air 04/15/17 01:01 77 04/15/17 00:11 36.7 110 16 156/74 (101) 92 Room Air 04/15/17 00:00 Room Air 04/14/17 16:00 95 Room Air 04/14/17 15:01 36.7 89 16 129/83 (98) 91 Room Air (Angela Rick CRNP) Physical Exam Notes: General: no distress Eyes: normal inspection, PERLL Respiratory: chest non tender, clear to auscultation, normal breath sounds, no respiratory distress, no accessory muscle use Cardiac: regular rate and rhythm, no rub or gallop, no murmur, no edema, no jvd GI/: active bowel sounds, no abd pain or tenderness, soft, non distended Extremities: normal range of motion, normal strength, non tender Neuro/Psych: alert and oriented x 3, normal mood and affect Skin: normal color, dry (Angela Rick ., EMANUEL) Laboratory Results Last 24 Hours Test 04/15/17 07:03 04/15/17 08:17 Sodium Level 146 mmol/L Potassium Level 3.2 mmol/L Chloride Level 113 mmol/L Carbon Dioxide Level 30 mmol/L Anion Gap 3.0 mmol/L Blood Urea Nitrogen 17 mg/dl Creatinine 0.66 mg/dl Est Creatinine Clear Calc Drug Dose 45.7 ml/min Estimated GFR () 90.8 Estimated GFR (Non- 78.3 BUN/Creatinine Ratio 25.2 Random Glucose 95 mg/dl Calcium Level 8.4 mg/dl White Blood Count 6.90 K/uL Red Blood Count 3.09 M/uL Hemoglobin 10.0 g/dL Hematocrit 29.7 % Mean Corpuscular Volume 96.1 fL Mean Corpuscular Hemoglobin 32.4 pg Mean Corpuscular Hemoglobin Concent 33.7 g/dl RDW Standard Deviation 53.8 fL RDW Coefficient of Variation 15.5 % Platelet Count 181 K/uL Mean Platelet Volume 10.3 fL (Angela Rick CRNP) Assessment and Plan 89 y/o F, PMH CHF, HLD, HTN, Atherosclerosis, dementia, hypothyroidism admitted for DERRELL/Dehydration and fecal impaction. Failure to thrive - continue boost, dietitian recs - IVF discontinued, kidney function wnl, sodium decreased to 146 - Continues to have little appetite, family does not want to start appetite stimulants given side effect profiles - Consult palliative care for goals of care Hypokalemia - 3.2 today - replaced. Acute on chronic kidney failure/Dehydration - resolved. - Cr of 3.68 on admission, trended down - Lisinopril restarted, will hold off on restarting furosemide as patient is not taking in much po. Fecal impaction - resolved - continue Colace, Miralax, Senna. - c.diff and fecal occult pending - patient has had multiple dark stools - hgb stable Dizziness - lightheadedness - resolved. - Head CT negative. Echo in feb 2017 shows cardiac likely noncontributory. - continue proper hydration and nutrition Chronic generalized and back pain - Continue voltaren gel, tylenol Klebsiella UTI - U cx growing klebsiella - 5 day treatment with ceftriaxone ended 04/14/17. PAF: - Continue metoprolol - titrated dose to 50 this am for rate control. Tolerating well. - discontinued aspirin and heparin - start Xeralto - heart rate controlled. GERD - continue pantoprazole Hypothyroidism -Tsh of 0.075, free T4 nl at 1.38 - decreased dose of Levothyroxine to 50 mcg; - recheck as outpatient Dementia - continue memantine Dispo - awaiting SNF placement (Angela Rick ., EMANUEL) I agree with resident assessment and plan and have seen and examined pt myself Resting comfortably in bed VSS Rate controlled DERRELL resolved, IVF stopped PT/OT consulted, awaiting SNF placement at this time Finished 5 day course of rocephin for uncomplicated UTI Family ok with resuming xarelto (Twin Dougherty, D.O.)
[2017-04-15] MEDS: ACETAMINOPHEN 325 MG TAB PO PRN ×2 (14:25→19:39)
[2017-04-15 14:56] VITALS: BP 130/83; PULSE 81; TEMP 36.7; O2SAT 93
[2017-04-15] MEDS: ATORVASTATIN 10 MG TAB PO SCH (16:49)
[2017-04-15] MEDS: MIRTAZAPINE TAB 15 MG TAB PO SCH (21:04)
[2017-04-15] MEDS: METRONIDAZOLE 500 MG TAB PO SCH (21:04)
[2017-04-15] MEDS: GABAPENTIN 100 MG CAP PO SCH (21:05)
[2017-04-15 22:58] VITALS: BP 152/80; PULSE 104; TEMP 36.3; O2SAT 92
[2017-04-16 01:35] VITALS: O2SAT 92
[2017-04-16] MEDS: LEVOTHYROXINE 50 MCG TAB PO SCH (06:03)
[2017-04-16] MEDS: METRONIDAZOLE 500 MG TAB PO SCH (06:03)
[2017-04-16 06:55] LABS: CALCIUM 8.4 mg/dl (8.5-10.1); CREATININE 0.72 mg/dl (0.60-1.20); POTASSIUM 3.8 mmol/L (3.5-5.1)
[2017-04-16] MEDS: DOCUSATE SODIUM 100 MG/10 ML UDC PO SCH (08:16)
[2017-04-16] MEDS: DICLOFENAC SOD 1% GEL 100 GM TUBE EXT SCH ×4 (08:16→20:27)
[2017-04-16] MEDS: POLYETHYLENE (MIRALAX) 17 GM PACK PO SCH (08:16)
[2017-04-16] MEDS: CEROVITE ADV FORMULA TAB PO SCH (08:17)
[2017-04-16] MEDS: METOPROLOL SUCC 50MG EXT REL TAB PO SCH (08:17)
[2017-04-16] MEDS: ASCORBIC ACID 500 MG TAB PO SCH (08:18)
[2017-04-16] MEDS: LISINOPRIL 20 MG TAB PO SCH (08:18)
[2017-04-16 08:21] VITALS: BP 139/74; PULSE 87; TEMP 36.3; O2SAT 93
[2017-04-16] MEDS ORDERED: RIVAROXABAN TAB 15 MG TAB PO SCH (09:00)
[2017-04-16] MEDS: BOOST VANILLA PO SCH ×3 (09:23→20:26)
[2017-04-16] MEDS: ACETAMINOPHEN 325 MG TAB PO PRN ×3 (10:51→20:26)
[2017-04-16] MEDS: DOCUSATE SODIUM/SENNA 50/8.6MG TAB PO SCH (12:00)
[2017-04-16] MEDS: RASPBERRY SYRUP 5 ML UDP PO SCH ×3 (12:00→22:33)
[2017-04-16] MEDS: VANCOMYCIN HCL 125 MG/2.5ML SOLN PO SCH ×3 (12:00→22:33)
--- NOTE | 2017-04-16 14:17 | Hospitalist Progress Note ---
Hospitalist Progress Note Date of Service Apr 16, 2017. (Angela Rick CRNP) Subjective Pt evaluation today including: conversation w/ patient, conversation w/ family , physical exam, chart review, lab review, review of inpatient medication list Voiding: hanks catheter in place Ms. Santana continues to be quiet and somewhat confused. She does not have any complaints. Son is at bedside, spent time updating him and answering questions. ROS Constitutional: no chills, aches, sweats or fever Respiratory: no sob,cough, sputum, or wheezing Cardiac: no chest pain, palpitations, edema, orthopnea or lightheadedness GI: no abdominal pain, nausea, vomiting, diarrhea or constipation : no dysuria or hesitancy Extremities: no joint pain or weakness Skin: no rash All other systems reviewed and negative (Angela Rick CRNP) Medications Medications (Trade) Dose Ordered Sig/Sapphire Route Start Time Stop Time Status Last Admin Dose Admin Rivaroxaban (Xarelto Tab) 15 mg DAILY PO 04/16/17 09:00 05/16/17 08:59 Future Hold 04/16/17 08:18 15 MG Metronidazole (Flagyl Tab) 500 mg Q8 PO 04/15/17 22:00 04/16/17 10:15 DC 04/16/17 06:03 500 MG Vancomycin HCl (Vancomycin Oral Soln) 125 mg Q6H PO 04/16/17 11:00 04/30/17 10:59 04/16/17 12:00 125 MG Raspberry (Raspberry Syrup 5ml Cup) 5 ml Q6H PO 04/16/17 11:00 04/30/17 10:59 04/16/17 12:00 5 ML (Angela Rick CRNP) Objective Vital Signs Date Time Temp Pulse Resp B/P (MAP) Pulse Ox O2 Delivery O2 Flow Rate FiO2 04/16/17 08:25 Room Air 04/16/17 08:21 36.3 87 16 139/74 (95) 93 Room Air 04/16/17 01:35 92 Room Air 04/15/17 22:58 36.3 104 16 152/80 (104) 92 Room Air 04/15/17 16:00 Room Air 04/15/17 14:56 36.7 81 16 130/83 (99) 93 Room Air (Angela Rick CRNP) Physical Exam Notes: General: no distress Eyes: normal inspection, PERLL Respiratory: chest non tender, clear to auscultation, normal breath sounds, no respiratory distress, no accessory muscle use Cardiac: irregular rate and rhythm, no rub or gallop, no murmur, no edema, no jvd GI/: active bowel sounds, no abd pain or tenderness, soft, mild distention Extremities: normal range of motion, normal strength, non tender Neuro/Psych: alert and oriented x 3, normal mood and affect Skin: normal color, dry (Angela Rick CRNP) Laboratory Results Last 24 Hours Test 04/16/17 05:58 Sodium Level 145 mmol/L Potassium Level 3.8 mmol/L Chloride Level 114 mmol/L Carbon Dioxide Level 28 mmol/L Anion Gap 3.0 mmol/L Blood Urea Nitrogen 15 mg/dl Creatinine 0.72 mg/dl Est Creatinine Clear Calc Drug Dose 41.9 ml/min Estimated GFR () 86.1 Estimated GFR (Non- 74.3 BUN/Creatinine Ratio 21.4 Random Glucose 94 mg/dl Calcium Level 8.4 mg/dl (Angela Rick CRNP) Assessment and Plan 89 y/o F, PMH CHF, HLD, HTN, Atherosclerosis, dementia, hypothyroidism admitted for DERRELL/Dehydration and fecal impaction. Failure to thrive - continue boost, dietitian recs - IVF discontinued, kidney function wnl, sodium decreased to 146 - Continues to have little appetite, family does not want to start appetite stimulants given side effect profiles - Consult palliative care for goals of care C.Diff colitis - patient has had c.diff in the past - vancomycin po qid Blood loss anemia - fecal occult positive - likely secondary to c.diff colitis - hold anticoagulants until bleeding stops - cbc am, hgb has been stable around 10 Hypokalemia - replaced. Acute on chronic kidney failure/Dehydration - resolved. - Cr of 3.68 on admission, trended down - Lisinopril restarted, will hold off on restarting furosemide as patient is not taking in much po. Fecal impaction - resolved - hold stool softeners for now given c.diff infection Dizziness - lightheadedness - resolved. - Head CT negative. Echo in feb 2017 shows cardiac likely noncontributory. - continue proper hydration and nutrition Chronic generalized and back pain - Continue voltaren gel, tylenol Klebsiella UTI - U cx growing klebsiella - 5 day treatment with ceftriaxone ended 04/14/17. - dc hanks PAF: - Continue metoprolol - titrated dose to 50 this am for rate control. Tolerating well. - hold Xeralto due to fecal occult positive - heart rate controlled. GERD - continue pantoprazole Hypothyroidism -Tsh of 0.075, free T4 nl at 1.38 - decreased dose of Levothyroxine to 50 mcg; - recheck as outpatient Dementia - continue memantine Dispo - awaiting SNF placement (Angela Rick, EMANUEL) I agree with resident assessment and plan and have seen and examined pt myself Resting comfortably in bed VSS Rate controlled DERRELL resolved, IVF stopped PT/OT consulted, awaiting SNF placement at this time Finished 5 day course of rocephin for uncomplicated UTI Hold xarelto at this time, fecal occult pos Now cdiff pos, hx of this, start on vanc will need 14 days total Palliative care consulted (Twin Dougherty, D.O.)
[2017-04-16 16:06] VITALS: BP 107/70; PULSE 113; TEMP 36.3; O2SAT 93
--- NOTE | 2017-04-16 16:07 | Palliative Care Consultation ---
Consultation Date of Consultation: Apr 16, 2017. Requesting Physician: EMANUEL Corrales Attending Physician: EMANUEL Corrales; Dr. Dougherty Reason for Consultation: Goals of care History of Present Illness This 89 year old female patient with PMH listed below, presented to the hospital several days ago with c/o dizziness, weakness, decreased PO intake, nausea, and overall decline in condition. Patient was found to have uncomplicated UTI and was treated with abx. Unfortunately has developed C. difficile infection. Patient was on blood thinner for her atrial fibrillation, but developed GI bleed so it has since been discontinued. Palliative care is now consulted to establish goals of care. I met with the patient and her son/POA, Travis Santana, in room 260. Travis asked if we could speak in another room regarding his mother. Patient was sitting up in chair, no apparent distress and denied any discomfort at this time. She is oriented to person and place, does have some forgetfulness. Travis expressed that prior to hospitalization, patient was at [facility], and prior to that was in SNF for rehab after a hospitalization. Patient's son reports that since patient had her teeth removed about three months ago, she has been on a steady decline including failure to thrive and decreased cognitive function. He knows she will not be able to return to personal care level of care and has requested that she be placed in SNF. After discussion, Travis states that his goal is for patient to be comfortable. Please see plan below. Past Medical/Surgical History Medical History: Atrial fibrillation Aortic valve disorder Mitral valve disorder Tricuspid valve disorder Cardiomegaly HLD Htn MGUS Pneumonia Sciatica Family History Not pertinent at this time Social History Smoking Status: Never Smoker History of Alcohol Use: No Drug Use: none Marital Status: single Housing Status: retirement Occupation Status: retired Review of Systems Constitutional: + weakness ENT: No trouble swallowing (per the son) Respiratory: No shortness of breath Cardiac: No chest pain Abdomen: No pain, No nausea, No vomiting Female : No problem reported Neurologic: + memory loss (reported by son) limited ROS due to patient condition Allergies Coded Allergies: Penicillins (Verified Allergy, Intermediate, RXN = RASH, NO SOB, NO EDEMA PER PATIENT REPORT, 03/20/17) Sulfa Antibiotics (Verified Allergy, Intermediate, RXN = RASH, NO SOB, NO EDEMA PER PATIENT REPORT, 03/20/17) Erythromycin (Verified Allergy, Mild, unknown, 03/20/17) Lidocaine (Verified Allergy, Mild, 03/20/17) Tetracyclines (Verified Allergy, Mild, 03/20/17) Zinc (Verified Allergy, Mild, MADE JAW SORE WITH PASTE FOR DENTURES, ) Morphine (Verified Adverse Reaction, Unknown, SENSITIVE TO MEDICATION, 03/20/17) Medications Current Inpatient Medications Medications (Trade) Dose Ordered Sig/Sapphire Route Start Time Stop Time Status Last Admin Dose Admin Docusate Sodium (coLACE SYRUP) 100 mg BID PO 04/10/17 09:00 05/10/17 08:59 Future Hold 04/13/17 21:45 100 MG Polyethylene (Miralax Powder Packet) 17 gm BID PO 04/10/17 09:00 05/10/17 08:59 Future Hold 04/15/17 08:29 17 GM Ascorbic Acid (Vitamin C Tab) 500 mg QAM PO 04/10/17 09:00 05/10/17 08:59 04/16/17 08:18 500 MG Atorvastatin Calcium (Lipitor Tab) 10 mg QD@1700 PO 04/10/17 17:00 05/10/17 16:59 04/15/17 16:49 10 MG Gabapentin (Neurontin Cap) 100 mg QPM PO 04/10/17 21:00 05/10/17 20:59 04/15/17 21:05 100 MG Mirtazapine (Remeron Tab) 15 mg HS PO 04/10/17 21:00 05/10/17 20:59 04/15/17 21:04 15 MG Multivitamins/ Minerals (Multivitamin W/ Minerals Tab) 1 tab QAM PO 04/10/17 09:00 05/10/17 08:59 04/16/17 08:17 1 TAB Senna/Docusate Sodium (Senokot S Tab) 1 tab QD@1200 PO 04/10/17 12:00 05/10/17 11:59 Future Hold 04/15/17 11:56 1 TAB Miscellaneous Information (Order Awaiting Action) 1 ea QS N/A 04/10/17 08:00 05/10/17 07:59 Potassium Chloride (Klor-Con M10) 10 meq QAM PO 04/10/17 09:00 05/10/17 08:59 Future Hold 04/13/17 08:00 10 MEQ Ondansetron HCl (Zofran Inj) 4 mg Q6H PRN IV 04/10/17 06:15 05/10/17 06:14 04/15/17 17:19 4 MG Polyethylene (Miralax Powder Packet) 17 gm DAILY PRN PO 04/10/17 06:15 05/10/17 06:14 Al Hydrox/Mg Hydrox/Simethicone (Maalox Max Susp) 15 ml Q4H PRN PO 04/10/17 06:15 05/10/17 06:14 04/15/17 16:48 15 ML Magnesium Hydroxide (Milk Of Magnesia Susp) 30 ml Q12H PRN PO 04/10/17 06:30 05/10/17 06:29 Metoprolol Tartrate (Lopressor Iv) 5 mg ONE PRN IV 04/11/17 11:15 05/11/17 11:14 Diclofenac Sodium (Voltaren 1% Top Gel) 1 appln QID EXT 04/11/17 13:00 05/11/17 12:59 04/16/17 14:59 1 APPLN Miscellaneous Medication (Milk And Molasses Enema) 1 ea Q1H PRN NM 04/11/17 19:15 05/11/17 19:14 Levothyroxine Sodium (Synthroid Tab) 50 mcg DAILYBB PO 04/12/17 06:00 05/12/17 05:59 04/16/17 06:03 50 MCG Metoprolol Succinate (Toprol Xl Tab) 50 mg QAM PO 04/13/17 09:00 05/10/17 08:59 04/16/17 08:17 50 MG Enteral Nutritional Formula (Boost) 1 can TID PO 04/13/17 09:00 05/13/17 08:59 04/16/17 14:59 1 CAN Lisinopril (Zestril Tab) 20 mg QAM PO 04/14/17 09:00 05/14/17 08:59 04/16/17 08:18 20 MG Naphazoline HCl/ Pheniramine Maleate (Visine-A Oph Soln) 2 drops Q12 PRN OP 04/14/17 11:00 05/14/17 10:59 Acetaminophen (Tylenol Tab) 650 mg Q4H PRN PO 04/14/17 13:00 05/14/17 12:59 04/16/17 10:51 650 MG Rivaroxaban (Xarelto Tab) 15 mg DAILY PO 04/16/17 09:00 05/16/17 08:59 Future Hold 04/16/17 08:18 15 MG Vancomycin HCl (Vancomycin Oral Soln) 125 mg Q6H PO 04/16/17 11:00 04/30/17 10:59 04/16/17 12:00 125 MG Raspberry (Raspberry Syrup 5ml Cup) 5 ml Q6H PO 04/16/17 11:00 04/30/17 10:59 04/16/17 12:00 5 ML Physical Exam Date Time Temp Pulse Resp B/P (MAP) Pulse Ox O2 Delivery O2 Flow Rate FiO2 04/16/17 08:25 Room Air 04/16/17 08:21 36.3 87 16 139/74 (95) 93 Room Air 04/16/17 01:35 92 Room Air 04/15/17 22:58 36.3 104 16 152/80 (104) 92 Room Air 04/15/17 16:00 Room Air General Appearance: no apparent distress, + pertinent finding (frail and elderly) ENT: hearing grossly normal Neck: supple, no JVD Respiratory: no respiratory distress, no accessory muscle use, + pertinent finding (room air) Cardiovascular: + irregularly irregular (chronic) Abdomen: + pertinent finding (abdomen not assessed at this time) Neurologic/Psychiatric: alert, normal mood/affect, + pertinent finding ( oriented to person and place) Skin: normal color Laboratory Results Last 24 Hours Test 04/16/17 05:58 Sodium Level 145 mmol/L Potassium Level 3.8 mmol/L Chloride Level 114 mmol/L Carbon Dioxide Level 28 mmol/L Anion Gap 3.0 mmol/L Blood Urea Nitrogen 15 mg/dl Creatinine 0.72 mg/dl Est Creatinine Clear Calc Drug Dose 41.9 ml/min Estimated GFR () 86.1 Estimated GFR (Non- 74.3 BUN/Creatinine Ratio 21.4 Random Glucose 94 mg/dl Calcium Level 8.4 mg/dl Assessment & Plan Palliative Performance Scale: 40 % Problem list: Weakness Altered mental status- acute vs. chronic Failure to thrive/decreased PO intake UTI- resolved C. difficile infection Afib, chronic- no blood thinner due to GI bleed Goals of care (Z51.5) Palliative care recs: discussed with patient's son/POA, Travis, and EMANUEL Luke. -Patient is level 5/DNR. -Travis is okay with continuing current medical treatment while patient is in hospital. -Son would really like to focus on patient's comfort at this time. Does not want any invasive/aggressive measures. Is accepting that patient has been steadily declining and she may very well continue on that way. -Okay with no anticoagulation. -No feeding tube to be placed. Will allow patient to eat or not eat at her will. -Upon discharge, patient will go to SNF for rehab initially and eventual transition to comfort/hospice care. records analysis manager is following for referrals. -If any decline or acute event happens after discharge, Travis states that he would not want patient to return to the hospital. -POLST form explained and completed as follows: DNR, comfort measures only, abx with comfort as the goal, trial period of artificial hydration but NO FEEDING TUBE. Thank you kindly for this consult. Please contact me with any further palliative care needs.
[2017-04-16] MEDS: ATORVASTATIN 10 MG TAB PO SCH (16:38)
[2017-04-16] MEDS: MIRTAZAPINE TAB 15 MG TAB PO SCH (20:27)
[2017-04-16] MEDS: GABAPENTIN 100 MG CAP PO SCH (20:27)
[2017-04-17] VITALS: O2SAT 92
[2017-04-17 00:08] VITALS: BP 143/84; PULSE 89; TEMP 36.7; O2SAT 95
[2017-04-17] MEDS: VANCOMYCIN HCL 125 MG/2.5ML SOLN PO SCH ×2 (05:49→11:00)
[2017-04-17] MEDS: RASPBERRY SYRUP 5 ML UDP PO SCH ×2 (05:49→11:00)
[2017-04-17] MEDS: LEVOTHYROXINE 50 MCG TAB PO SCH (05:49)
[2017-04-17 07:39] VITALS: BP 118/65; PULSE 74; TEMP 37; O2SAT 91
[2017-04-17] MEDS: BOOST VANILLA PO SCH ×2 (07:40→14:00)
[2017-04-17 07:45] VITALS: BP 125/68; PULSE 68; TEMP 36.3
[2017-04-17] MEDS: DICLOFENAC SOD 1% GEL 100 GM TUBE EXT SCH ×2 (07:46→13:00)
[2017-04-17] MEDS: METOPROLOL SUCC 50MG EXT REL TAB PO SCH (07:47)
[2017-04-17] MEDS: CEROVITE ADV FORMULA TAB PO SCH (07:47)
[2017-04-17] MEDS: ASCORBIC ACID 500 MG TAB PO SCH (07:49)
[2017-04-17] MEDS: LISINOPRIL 20 MG TAB PO SCH (07:49)
[2017-04-17 08:34] LABS: HEMATOCRIT 33.9 % (37-47); HEMOGLOBIN 11.3 g/dL (12.0-16.0); MEAN CELL VOLUME 97.4 fL (80-100); MEAN CORPUSCULAR HEMOGLOBIN 32.5 pg (25-34); MEAN CORPUSCULAR HGB CONC 33.3 g/dl (32-36); MEAN PLATELET VOLUME 10.1 fL (7.4-10.4); PLATELET COUNT 197 K/uL (130-400); RED CELL DISTRIBUTION WIDTH CV 15.7 % (11.5-14.5); RED CELL DISTRIBUTION WIDTH SD 54.5 fL (36.4-46.3); WHITE BLOOD COUNT 8.87 K/uL (4.8-10.8)
[2017-04-17 09:15] LABS: CALCIUM 8.7 mg/dl (8.5-10.1); CREATININE 0.8 mg/dl (0.60-1.20); POTASSIUM 3.7 mmol/L (3.5-5.1)
[2017-04-17] MEDS ORDERED: ONDANSETRON 4 MG TAB PO PRN (11:15)
[2017-04-17] MEDS ORDERED: ONDANSETRON 4MG OD TAB ONE (11:25)
[2017-04-17] MEDS ORDERED: FURO-85 PO ×2 (12:34)
[2017-04-17] MEDS ORDERED: VLTG EXT ×2 (12:34)
[2017-04-17] MEDS ORDERED: SYN50 PO ×2 (12:34)
[2017-04-17] MEDS ORDERED: TPRSR50 PO ×2 (12:34)
[2017-04-17] MEDS ORDERED: RSPS5 PO ×2 (12:34)
[2017-04-17] MEDS ORDERED: VANC1SUS PO ×2 (12:34)
[2017-04-17] MEDS ORDERED: Boost PO ×2 (12:34)
--- NOTE | 2017-04-17 12:49 | Discharge Instructions ---
Discharge Instructions Date of Service Apr 17, 2017. Admission Reason for Admission: Dizziness Discharge Discharge Diagnosis / Problem: Failure to thrive, c.diff, UTI Discharge Goals Goal(s): Decrease discomfort Activity Recommendations Activity Level: Assistance Required . Additional Information Patient informed of condition: Yes Advance Directives: Yes (son is POA) DNR: Yes Level of Care: Skilled Communicable Disease: Yes (C.Diff) Prognosis: Deteriorating Oxygen at (LPM): none Coon Catheter: No Instructions / Follow-Up Instructions / Follow-Up Ms. 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 Xeralto for paroxysmal atrial fibrillation had been started the day before so while it is not likely contributory, the Xeralto was held. ASA was continued as hgb remained stable. Would recommend restarting the Xeralto renally dosed in the next couple of days if the patient is no longer having dark tarry stools. They were likely due to some bleeding from the colitis. Patient had DERRELL on admission with creatinine above 3. Lasix has been held since that time. I have restarted her on a reduced dose. However, her po intake is still low. I would recheck her prp in the next few days to make sure she is tolerating. May need to dc lasix altogether Patient discussed goals of care with the palliative team while here, POLST was signed by her son. They do not wish to return to the hospital and would like to focus on comfort. Current Hospital Diet Patient's current hospital diet: AHA Diet (Heart Healthy) Discharge Diet Recommended Diet: Regular Diet Procedures Procedures Performed: Abd/chest Xray KUB Abd pelvis ct Head CT CXR Pending Studies Studies pending at discharge: no Physician Orders On Transfer POLST Discussion: with POLST completion Laboratory Results Last 24 Hours Test 04/17/17 08:07 White Blood Count 8.87 K/uL Red Blood Count 3.48 M/uL Hemoglobin 11.3 g/dL Hematocrit 33.9 % Mean Corpuscular Volume 97.4 fL Mean Corpuscular Hemoglobin 32.5 pg Mean Corpuscular Hemoglobin Concent 33.3 g/dl RDW Standard Deviation 54.5 fL RDW Coefficient of Variation 15.7 % Platelet Count 197 K/uL Mean Platelet Volume 10.1 fL Sodium Level 143 mmol/L Potassium Level 3.7 mmol/L Chloride Level 111 mmol/L Carbon Dioxide Level 26 mmol/L Anion Gap 6.0 mmol/L Blood Urea Nitrogen 18 mg/dl Creatinine 0.80 mg/dl Est Creatinine Clear Calc Drug Dose 37.7 ml/min Estimated GFR () 75.8 Estimated GFR (Non- 65.4 BUN/Creatinine Ratio 22.1 Random Glucose 112 mg/dl Calcium Level 8.7 mg/dl Medical Emergencies . Who to Call and When: Medical Emergencies: If at any time you feel your situation is an emergency, please call 911 immediately. . Non-Emergent Contact Non-Emergency issues call your: Primary Care Provider Call Non-Emergent contact if: you have any medication questions . Past History Medical & Surgical History: (1) Dehydration (2) Renal failure (3) Fecal impaction in rectum (4) Dizziness (5) C. difficile colitis (6) Atrial fibrillation (7) Anorexia (8) Congestive heart failure (9) Hypothyroid (10) Chronic back pain . "Provider Documentation" section prepared by Angela Rick. . Core Measure Problem Core Measures: None
--- NOTE | 2017-04-17 14:41 | Palliative Care Progress Note ---
Palliative Care Progress Note Date of Service Apr 17, 2017. Subjective Pt evaluation today including: conversation w/ patient, conversation w/ family (sonTravis), physical exam, chart review, conversation w/ workers compensation consultant (Dr. Dougherty) Pain: none PO Intake: small amounts of food/liquid -Patient feels somewhat nauseated today. She states she is unsure if it is truly nausea vs. her stomach just being unsettled. -Planning to go to [facility], [facility], today. Review of Systems Constitutional: + weakness ENT: No trouble swallowing Respiratory: No cough, No wheezing, No shortness of breath Cardiac: No chest pain, No edema Abdomen: No pain, No nausea, No vomiting Female : No problem reported Psychiatric: No anxiety Objective Vital Signs Date Time Temp Pulse Resp B/P (MAP) Pulse Ox O2 Delivery O2 Flow Rate FiO2 04/17/17 08:00 Room Air 04/17/17 07:45 36.3 68 16 125/68 (87) 04/17/17 07:39 37.0 74 16 118/65 (82) 91 Room Air 04/17/17 00:08 36.7 89 18 143/84 (103) 95 Room Air 04/17/17 00:00 92 Room Air 04/16/17 19:15 Room Air 04/16/17 16:06 36.3 113 18 107/70 (82) 93 Room Air Physical Exam General Appearance: no apparent distress ENT: hearing grossly normal Neck: supple, no JVD Respiratory/Chest: lungs clear, no respiratory distress, no accessory muscle use Cardiovascular: regular rate, rhythm, + pertinent finding (+1 pitting edema to bilateral lower extremities) Abdomen: non tender, soft, + pertinent finding (hyperactive bowel sounds) Neurologic/Psychiatric: alert, normal mood/affect, + disoriented Skin: normal color Assessment and Plan Problem list: Weakness Nausea Altered mental status- acute vs. chronic Failure to thrive/decreased PO intake UTI- resolved C. difficile infection Afib, chronic- no blood thinner due to GI bleed Goals of care (Z51.5) Palliative care recs: -Patient is level 5/DNR. -SonTravis, would really like to focus on patient's comfort at this time. Does not want any invasive/aggressive measures. Is accepting that patient has been steadily declining and she may very well continue on that way. -Okay with no anticoagulation. -No feeding tube to be placed. Will allow patient to eat or not eat at her will. -Upon discharge, patient will go to [facility] for rehab initially and eventual transition to comfort/hospice care. -If any decline or acute event happens after discharge, Travis states that he would not want patient to return to the hospital. -POLST form explained and completed yesterday as follows: DNR, comfort measures only, abx with comfort as the goal, trial period of artificial hydration but NO FEEDING TUBE. Thank you again for this consult. Please contact me with any further palliative care needs. Palliative Performance Scale: 40 % Continued [facility] stay due to: inadequate po fluid intake, ambulation difficulties Discharge planning: nursing home facility
[2017-04-17] MEDS: ACETAMINOPHEN 325 MG TAB PO PRN (15:23)
[2017-04-17 15:41] VITALS: BP 148/81; PULSE 91; TEMP 36.6; O2SAT 93
--- NOTE | 2017-04-17 16:01 | Discharge Summary ---
Discharge Summary Date of Service Apr 17, 2017. Discharge Summary Admission Date: Apr 09, 2017 at 22:24 Discharge Date: Apr 17, 2017 Discharge Disposition: Home Principal Diagnosis: failure to thrive Problems/Secondary Diagnoses: Failure to thrive, C.Diff colitis, Blood loss anemia, Hypokalemia, Acute on chronic kidney failure/Dehydration, Fecal impaction, Dizziness - lightheadedness , Chronic generalized and back pain, Klebsiella UTI, PAF, GERD, Hypothyroidism, Dementia Immunizations: Have You Had Influenza Vaccine: Yes Influenza Vaccine Date: Dec 13, 2010 History of Tetanus Vaccine?: Unknown History of Pneumococcal: Yes Pneumococcal Date: Dec 13, 2010 History of Hepatitis B Vaccine: Unknown Procedures: AP CHEST WITH ABDOMINAL SERIES CLINICAL HISTORY: Abdominal distention. Loss of appetite. FINDINGS: An AP chest radiograph is compared to study dated 04/09/2017. The examination is degraded by patient rotation. The patient is status post midline sternotomy and cardiac valve surgery. The heart is enlarged and there is atherosclerotic calcification of the thoracic aorta. The pulmonary vasculature is noncongested. Chronic interstitial thickening is similar to previous. There are bibasilar airspace opacities. Trace pleural effusions are noted. No pneumothorax is seen. The skeletal structures are osteopenic. 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 Supine and decubitus abdominal radiographs are compared to study dated 04/11/2017 and correlated with abdominal CT dated 04/09/2017. Call cystectomy clips are seen in the right upper quadrant. There is a nonobstructed abdominal bowel gas pattern. Gaseous distention of the colon has significantly improved from 04/11/2017. No evidence of intraperitoneal free air is seen. There are no abnormal abdominal calcifications. Phleboliths are seen in the pelvis. There is moderate lumbosacral spondylosis and scoliosis. The lumbosacral spine and bony pelvis appear intact. IMPRESSION: 1. Cardiomegaly without radiographic evidence of congestive failure. 2. There are bibasilar airspace opacities and small pleural effusions. This could represent atelectasis versus pneumonia/aspiration pneumonitis. Clinical correlation will be required. 3. Nonobstructed abdominal bowel gas pattern. Gaseous distention of the colon has significantly improved from 04/11/2017. KUB HISTORY: fecal impaction, assess colon distention COMPARISON: Abdomen and pelvis CT 04/09/2017. FINDINGS: Moderate to large stool ball seen within the rectum is again noted. Gas-filled colon which is not significantly distended. This measures up to 4.8 cm diameter. There are few nondilated gas-filled loops of small bowel. Cholecystectomy. No renal calculi. No ureteral calculi. No pneumoperitoneum or pneumatosis. IMPRESSION: 1. Moderate to large stool ball is again identified within the rectum. 2. Nondilated gas-filled loops of large and small bowel. No evidence for bowel obstruction at this time. CT SCAN OF THE BRAIN WITHOUT IV CONTRAST CLINICAL HISTORY: Change in mental status. COMPARISON STUDY: CT of the brain dated 02/24/2017. TECHNIQUE: Unenhanced axial CT scan of the brain is performed from the vertex to the skull base. A dose lowering technique was utilized adhering to the principles of ALARA. FINDINGS: Brain parenchyma: There are age-related involutional changes noting mild to moderate subcortical and periventricular microangiopathic change. There is no hemorrhage, mass effect, or evidence of acute territorial ischemia by CT criteria. Mcneil-white matter is preserved. No extra-axial fluid collection is seen. Ventricles, sulci, cisterns: Prominent secondary to involutional change. Intracranial vasculature: There is atherosclerotic calcification of the cavernous carotid and vertebral arteries. Calvarium: Unremarkable. Sinuses and mastoids: The visualized paranasal sinuses are clear. The mastoid air cells are well pneumatized. Orbits: The bony orbits are grossly intact. There are bilateral ocular lens implants. IMPRESSION: Senescent changes as above with no hemorrhage, mass effect, or evidence of acute territorial ischemia by CT criteria. CHEST ONE VIEW PORTABLE CLINICAL HISTORY: Weakness. COMPARISON STUDY: Chest CT April 19, 2016 and chest radiograph March 14, 2017. FINDINGS: Note is made of median sternotomy wires and a prosthetic aortic valve. Mild cardiomegaly is unchanged. There is no evidence for pulmonary edema. Right breast surgical clips are noted. Mild left basilar opacity is unchanged. This favors atelectasis. Blunting of the left costophrenic angle is unchanged and likely related to epicardial fat pad. Appearance of the chest is unchanged. There is an old right clavicular fracture and old left-sided rib fractures. IMPRESSION: No acute cardiopulmonary findings. Mild left basilar opacity which favors atelectasis. Consultations: Yennifer Silverman PACKAGE DELIVERY DRIVER from Palliative Care Medication Reconciliation New Medications: Furosemide (Lasix) 20 Mg Tab 20 MG PO DAILY for 30 Days, #30 TAB Diclofenac Sod (Voltaren) 100 Appln/100 Gm Gel 1 APPLN EXT QID for 30 Days, #1 TUBE Levothyroxine Sodium (Synthroid) 50 Mcg Tab 50 MCG PO DAILYBB for 30 Days, #30 TAB Metoprolol Succinate (Metoprolol Succinate ER) 50 Mg Tabcr 50 MG PO QAM for 30 Days, #30 DOSE Raspberry (Raspberry Syrup) 5 Ml/Cup Syrp 5 ML PO Q6H for 12 Days, #48 DOSE Vancomycin HCl (Vancomycin HCl + Syrspend) 50 Mg/Ml Mariana 125 MG PO Q6H for 12 Days, #48 DOSE [Boost] () 1 CAN LIQD 1 CAN PO TID for 30 Days, #90 CAN Continued Medications: Ascorbic Acid (Vitamin C) 500 Mg Tab 500 MG PO QAM Aspirin (Aspirin Ec) 81 Mg Tab 81 MG PO QAM Atorvastatin (Lipitor) 10 Mg Tab 10 MG PO QD@1700 Calcium Carbonate-Cholecalcife (Calcium 500+D 500-200 mg-Unit) 1 Tab Tab 1 TAB PO QAM Gabapentin (Gabapentin) 100 Mg Cap 100 MG PO QPM Lisinopril (Lisinopril) 20 Mg Tab 20 MG PO QAM Memantine Hcl (Namenda Xr) 14 Mg Cap 14 MG PO QPM Mirtazapine (Remeron) 15 Mg Tab 15 MG PO HS, TAB Multivitamins/Minerals (Mvi With Minerals) Tab 1 TAB PO QAM Potassium Chloride (Potassium Chloride Er) 10 Meq Tab 10 MEQ PO QAM, TAB Discontinued Medications: Furosemide (Lasix) 40 Mg Tab 40 MG PO QAM Ibuprofen (Advil) 200 Mg Tab 400 MG PO AMHS, TAB Ibuprofen (Advil) 200 Mg Tab 200 MG PO QD@1200, TAB Ibuprofen (Advil) 200 Mg Tab 200 MG PO QD@1600, TAB Levothyroxine Sodium (Levothyroxine Sodium) 75 Mcg Tab 75 MCG PO QAM Metoprolol Succinate (Metoprolol Succinate ER) 25 Mg Tabcr 25 MG PO QAM Sennosides-Docusate Sodium (Docusate Sodium/Senna) 1 Tab Tab 1 TAB PO QD@1200 Discharge Exam ROS Constitutional: no chills, aches, sweats or fever Respiratory: no sob,cough, sputum, or wheezing Cardiac: no chest pain, palpitations, edema, orthopnea or lightheadedness GI: no abdominal pain, nausea, vomiting, diarrhea or constipation : no dysuria or hesitancy Extremities: no joint pain or weakness Skin: no rash All other systems reviewed and negative General: no distress Eyes: normal inspection, PERLL Respiratory: chest non tender, clear to auscultation, normal breath sounds, no respiratory distress, no accessory muscle use Cardiac: regular rate and rhythm, no rub or gallop, no murmur, no edema, no jvd GI/: active bowel sounds, mild abdominal tenderness, soft, non distended Extremities: normal range of motion, normal strength, non tender Neuro/Psych: alert and oriented x 3, normal mood and affect Skin: normal color, dry Hospital Course This is an 89 y/o F who presented from the [facility] with dizziness and nausea. History is provided by son. He reported that 3 months ago, she had all of her teeth pulled out and since then there has been a progressive decline in her health. About a month after that she stopped taking her meds and starting showing signs of confusion. She was admitted here in Feb for weakness, found to be in Afib and also gabapentin overdose (due to mixing up of meds.) She was sent to . He reports that nausea and dizziness has been a constant problem even after being treated here. Prior to having her teeth pulled, her main concerns were chronic generalized pain. She recently saw Dr. Stout office and she was taken off her blood thinner for concerns for administering both NSAIDs, which the patient felt was the only thing that helped her pain, and Xeralto due to increased risk of bleeding. Upon admission, her son felt that her mental status seemed more altered than usual. He was also concerned about her lack of bowel movements. Failure to thrive - continue boost, dietitian recs - IVF discontinued, kidney function wnl, sodium decreased to 143 on discharge - Continues to have little appetite, family does not want to start appetite stimulants given side effect profiles - Patient and son discussed goals of care with the palliative team while here, POLST was signed by her son. They do not wish to return to the hospital and would like to focus on comfort. C.Diff colitis - patient has had c.diff in the past - 125 mg vancomycin po qid for a total of two weeks - last day 04/29 Blood loss anemia - Fecal occult was positive. Xeralto for paroxysmal atrial fibrillation had been started the day before so while it is not likely contributory, the Xeralto was held. ASA was continued as hgb remained stable. Would recommend restarting the Xeralto renally dosed in the next couple of days if the patient is no longer having dark tarry stools. They were likely due to some bleeding from the colitis. - hgb has been stable around 10 - 11 on discharge Hypokalemia - replaced. Acute on chronic kidney failure/Dehydration - resolved. - Patient had DERRELL on admission with creatinine above 3. Lasix has been held since that time and she was also given IVF and her creatinine trended down to wnl. I have restarted her on a reduced dose. However, her po intake is still low. I would recheck her prp in the next few days to make sure she is tolerating. May need to dc lasix altogether Fecal impaction - resolved - Patient initially had fecal impaction but since it has resolved and c.diff infection started, she is having multiple bowel movements per day so senna, docusate, miralax were held - she may need to resume these when she is recovered from the C.diff infection Dizziness - lightheadedness - resolved. - Head CT negative. Echo in feb 2017 shows cardiac likely noncontributory. - continue proper hydration and nutrition Chronic generalized and back pain - Continue voltaren gel, tylenol - patient had been taking quite a bit of ibuprofen at home but her pain has been stable while here and she has not required much pain control. I would not recommend she restart it given her multiple comorbidities Klebsiella UTI - U cx growing klebsiella - 5 day treatment with ceftriaxone ended 04/14/17. PAF: - Continue metoprolol - titrated dose to 50 mg from 25 mg rate control. Tolerating well. - hold Xeralto due to fecal occult positive - would consider restarting with renal dosing in a few days if no further s/s of gi bleeding - heart rate controlled. GERD - continue pantoprazole Hypothyroidism -Tsh of 0.075, free T4 nl at 1.38 - decreased dose of Levothyroxine to 50 mcg from 75 mcg - recheck as outpatient in a couple weeks Dementia - continue memantine Patient discharged to the [facility]. Total Time Spent: Greater than 30 minutes This includes examination of the patient, discharge planning, medication reconciliation, and communication with other providers. Discharge Instructions Please refer to the electronic Patient Visit Report (Discharge Instructions) for additional information. Additional Copies To Geraldo Rick M.D.; [facility]
== END 2017-04-17 16:19 | DRG 682 ==
LOC: EDBD 16:20 → C.EDC 16:21 → C.MSICU 22:24 → ENRESERV 22:35 → C.MS4W 04-10 14:34 → ENRESERV 04-10 20:56 → C.2E 04-10 21:17 → ENRESERV 04-13 17:35 → C.MS2W 04-13 18:19
PROVIDERS: ADMIT Hospitalist; ATTEND Hospitalist
PROC: 0T9B70Z Drainage of Bladder with Drainage Device, Via Natural or Artificial Opening (ICD-10-PCS; principal; 2017-04-09)
DX: N17.9 Acute kidney failure, unspecified (principal); G93.41 Metabolic encephalopathy; E87.0 Hyperosmolality and hypernatremia; A04.72 Enterocolitis due to Clostridium difficile, not specified as recurrent; E87.2 Acidosis; D62 Acute posthemorrhagic anemia; N39.0 Urinary tract infection, site not specified; I13.0 Hypertensive heart and chronic kidney disease with heart failure and stage 1 through stage 4 chronic kidney disease, or unspecified chronic kidney disease; R62.7 Adult failure to thrive; B96.1 Klebsiella pneumoniae [K. pneumoniae] as the cause of diseases classified elsewhere; R19.5 Other fecal abnormalities; E87.6 Hypokalemia; E86.0 Dehydration; K56.41 Fecal impaction; R42 Dizziness and giddiness; I95.1 Orthostatic hypotension; R11.0 Nausea; R53.1 Weakness; I50.9 Heart failure, unspecified; N18.9 Chronic kidney disease, unspecified; I48.0 Paroxysmal atrial fibrillation; G89.29 Other chronic pain; M54.9 Dorsalgia, unspecified; M19.90 Unspecified osteoarthritis, unspecified site; K21.9 Gastro-esophageal reflux disease without esophagitis; E03.9 Hypothyroidism, unspecified; I25.10 Atherosclerotic heart disease of native coronary artery without angina pectoris; F03.90 Unspecified dementia, unspecified severity, without behavioral disturbance, psychotic disturbance, mood disturbance, and anxiety; K08.109 Complete loss of teeth, unspecified cause, unspecified class; R63.0 Anorexia; Z68.23 Body mass index [BMI] 23.0-23.9, adult; Z66 Do not resuscitate; Z51.5 Encounter for palliative care; Z79.82 Long term (current) use of aspirin; Z79.1 Long term (current) use of non-steroidal anti-inflammatories (NSAID); Z79.899 Other long term (current) drug therapy

== ENCOUNTER → 2017-04-21 | Outpatient (CLI) | payer OTHER, MEDICARE ==
[~2017-04-21] MED LIST changes: +ASPI81TA28 PO; +Boost PO; +CALC-464 PO; +FRS/40 PO; +FURO-85 PO; +IBUP-1050 PO; +LEVO75TA5 PO; +LSN20 PO; -METOPROLOL TARTRATE 1 MG/ML VIAL IV. ONE; +MIRT15TA3 PO; +MULT-513 PO; +NRN100 PO; +POTA-74 PO; +RSPS5 PO; +SENN8.6T36 PO; +SYN50 PO; +TPRSR25 PO; +TPRSR50 PO; +VANC1SUS PO; +VLTG EXT
[2017-04-21 09:30] LABS: BLOOD UREA NITROGEN 14 mg/dl (7-18); CALCIUM 8.6 mg/dl (8.5-10.1); CARBON DIOXIDE 31 mmol/L (21-32); CREATININE 0.65 mg/dl (0.60-1.20); GLUCOSE 106 mg/dl (70-99); POTASSIUM 3.4 mmol/L (3.5-5.1); SODIUM 137 mmol/L (136-145)
== END | disposition home or self-care (01) ==
LOC: C.LABVPSUA 08:33
PROVIDERS: ATTEND Internal Medicine Critical Care Medicine
DX: N17.9 Acute kidney failure, unspecified (principal)